=== PATIENT | female | born 1935 | race Caucasian/White ===

== ENCOUNTER 2023-04-18 22:50 | Inpatient (IN) | payer OTHER, SELFPAY ==
[2023-04-18 17:23] VITALS: BP 180/92
[2023-04-18 17:43] LABS: % Basophils 0.3 % (0-2); % Eosinophils 2.8 % (0-6); % Immature Granulocytes 0.8 % (0-0.5); % Lymphocytes 28.5 % (20.5-51.1); % Neutrophils 58.6 % (42.2-75.2); Absolute Eosinophils 0.2 10^3/uL (0-0.7); Absolute Immature Granulocytes 0.1 10^3/uL (0-0.05); Absolute Lymphocytes 1.7 10^3/uL (1.2-3.4); Absolute Monocytes 0.5 10^3/uL (0.1-0.6); Absolute Neutrophils 3.5 10^3/uL (1.4-6.5); Hematocrit 36.9 % (37.0-47.0); Mean Corp Hgb Conc. 35.2 g/dL (33.0-37.0); Mean Corpuscular Hgb 32.8 pg (27.0-31.0); Mean Corpuscular Volume 93.2 fL (81.0-99.0); Mean Platelet Volume 8.3 fL (7.4-10.4); Nucleated Red Blood Cells % 0 %; Platelet Count 173 10^3/uL (130-400); Red Blood Cell Count 3.96 10^6/uL (4.20-5.40); Red Cell Dist. Width 13.6 % (11.5-14.5)
[2023-04-18 17:57] LABS: COVID-19 Antigen Negative (Negative)
[2023-04-18 18:01] LABS: ALT (SGPT) 28 U/L (0-35); AST (SGOT) 28 U/L (14-36); Albumin 4.1 g/dl (3.5-5.0); Alkaline Phosphatase 66 U/L (38-126); Blood Urea Nitrogen 14 mg/dl (7-17); Calcium 9.1 mg/dl (8.4-10.2); Carbon Dioxide 28 mmol/L (22-30); Chloride 99 mmol/L (98-107); Glucose 120 mg/dl (70-99); Potassium 4.1 mmol/L (3.5-5.1); Sodium 136 mmol/L (135-145); Total Bilirubin 0.8 mg/dl (0.2-1.3); Total Protein 6.7 g/dl (6.3-8.2); eGFR > 60.00
[2023-04-18 18:05] LABS: NT-proBNP 176 pg/ml
[2023-04-18 20:16] VITALS: BP 192/82
--- NOTE | 2023-04-18 20:22 | ED.GENMED ---
History of Present Illness
General
Chief Complaint: Breathing Problem
Source: patient and family
Exam Limitations: none
Time Seen by Provider: 04/18/23 20:09
Nursing documentation reviewed up to this point in time: agreed with
Travel History
Have you had any contact with someone who has COVID-19?: No
Do you have any symptoms of coronavirus? Fever > 100 degrees, chills, cough, shortness of breath, sore throat, loss of taste or smell, muscle aches, or headache?: No
History of Present Illness
History of Present Illness:
Patient is 80-year-old female who lives in independent living [place] presents for shortness of breath and wheezing. Patient reports she was admitted 03/18 and feels that symptoms have never truly gone away but have gotten worse since Tuesday. She has
no associated chest pain. She is no cardiac history. She denies any fevers but has had a lot of cough and wheezing. She was seen by her family doctor today and sent to the ER for evaluation admission. She was given a nebulizer treatment while
in the PCP office.
She has chronic lower extremity swelling.
Past History
Past History
ED Past Medical History: Fibromyalgia, HTN, Hypercholesterolemia and Other (chronic back pain and neuropathy)
ED Past Surgical History: Bowel resection and Cholecystectomy
Social History
Tobacco: Non-smoker
Alcohol: Occasional
Drug: None
Personal:
Living: assisted living
Review of Systems
Review of Systems
Allergies reviewed?: Yes
All Other Systems: ROS reviewed and negative except as documented in HPI and ROS
Constitutional: Reports no symptoms; Denies fever, fatigue or chills
Respiratory: Reports cough, trouble breathing and other (+ wheezing )
Cardiac: Reports no symptoms
ABD/GI: Reports no symptoms
: Reports no symptoms
Musculoskeletal: Reports other (chronic swelling b/l l/e )
Skin: Reports no symptoms
Neurological: Reports no symptoms
Psychiatric: Reports no symptoms
Phy Exam
General Physical Exam
General Presentation: no apparent distress
General age: appears stated age
General Skin: warm and dry
General Habitus: normal
General Mental: alert
General Hydration: appears well hydrated
Cardiovascular Exam
Cardiovascular Exam: regular rate/rhythm, no murmur and normal peripheral pulses
Pulmonary Exam
Pulmonary Exam: no respiratory distress and other (exp wheezing b/l )
Neurological Exam
Neurological Exam: alert and oriented x3
Musculoskeletal Exam
Musculoskeletal Exam: full ROM and other (chronic b/l ankle swelling )
Skin Exam
Skin Exam: normal color and warm/dry
Psychiatric Exam
Psychiatric Exam: normal mood/affect
Scores
Heart Failure Risk
Heart Failure Risk Score: Not Applicable
Course
Orders/Labs/Results
Orders:
Orders
04/18/23 17:34
COVID-19 Antigen Urgent
Source: Nasal Swab
Complete Blood Count/With Diff Urgent
Comprehensive Metabolic Panel Urgent
NT-proBNP Urgent
Influenza A+B Rapid Molecular Urgent
LEONA Source: Nasal Swab
Specimen Description:
04/18/23 20:23
Chest [CR Chest - 2 Views ] Urgent
Comment:
Reason For Exam: sob
04/18/23 20:51
Albuterol Sulfate [Ventolin Nebules] 7.5 mg INH R NOW STA
Dexamethasone Sod Phosphate [Decadron] 10 mg IV NOW STA
Ipratropium Nebs [Atrovent Nebules] 1 mg INH R NOW STA
04/18/23 20:56
Electrocardiogram (*1) Stat
Reason for Study: Other
Other Reason for Exam: chest pain
Cardiac Monitoring- Treatment ONCE
EKG- Treatment ONCE
Abnormal Lab Results
04/18/23
17:34
RBC 3.96 L 10^6/uL
(4.20-5.40)
Hct 36.9 L %
(37.0-47.0)
MCH 32.8 H pg
(27.0-31.0)
Abs Immat Gran (auto) 0.1 H 10^3/uL
(0-0.05)
Immature Gran % 0.8 H %
(0-0.5)
Glucose 120 H mg/dl
(70-99)
04/18/23 17:34
04/18/23 17:34
Vital Signs
Initial and Last Documented VS:
Initial Vital Signs
Temp Pulse Resp BP Pulse Ox
99.8 F 77 18 180/92 97
04/18/23 17:23 04/18/23 17:23 04/18/23 17:23 04/18/23 17:23 04/18/23 17:23
Last Documented Vital Signs
Temp Pulse Resp BP Pulse Ox
98.4 F 76 33 178/85 95
04/18/23 20:25 04/18/23 21:00 04/18/23 21:00 04/18/23 21:00 04/18/23 21:00
MDM/Problems Addressed
Differential Diagnosis Includes:
not limited to: bronchitis, pneumonia
MDM/Problems Addressed:
Patient is an 80-year-old female who presents to the ER complaining of cough shortness of breath and wheezing. Patient was seen by her family doctor and sent to the ER for evaluation. She denies any recent fever chills however has had increasing
shortness of breath which is worsened over the past several days. She is obvious wheezing on exam and she is SOB . pt was given 1 hour-long neb and steroids. Chest x-ray ordered however not completed yet as read department is backed up however
despite this patient will need admission. She denies any fevers and is afebrile here with a normal white count. neg covid, neg flu
*Radiology
Radiology exam reviewed: radiology read reviewed
*Pulse Oximetry
Patient hypoxic: no
*EKG
Interpreted by ED Provider?: Yes
Interpretation: normal
Comparison EKG: no changes
Heart Rate: 79
Rate: normal
Rhythm: sinus
Ischemia: non-specific ST changes
*Critical Care Note
Total Time (30-74mins, 75-104mins- exclusive of procedures): Not Applicable
ED Attending Note
-
Portions of this chart may have been created with voice recognition software.� Occasional wrong word or��sound alike� substitutions may have occurred due to the inherent limitations of voice recognition software.
Discharge Plan
Departure
Patient Disposition: Admit
Date of Disposition: 04/18/23
Time of Disposition: 22:04
Admit to: Med/Surg
Admit to doctor: Dani
Presentation/result/management discussed w/ accepting MD/DO: Hospitalist
Patient with high blood pressure during this ER visit?: No
Condition: Fair
Covid-19: Negative COVID-19
Discharge Problem:
Bronchitis, shortness of breath
Prescriptions:
No Action
gabapentin 400 MG capsule
400 mg PO TID
cyanocobalamin (vitamin B-12) 1,000 MCG tablet
1,000 mcg PO DAILY
rosuvastatin 5 MG tablet
5 mg PO QPM
metoprolol tartrate 25 MG tablet
25 mg PO BID
cholecalciferol (vitamin D3) [Vitamin D3] 1,000 UNIT tablet,chewable
1,000 units PO DAILY
fluoxetine 40 mg capsule
40 mg PO DAILY
amitriptyline 25 mg tablet
25 mg PO HS
calcium carbonate 500 mg calcium (1,250 mg) Tablet
500 mg PO DAILY
ascorbic acid (vitamin C) [Vitamin C] 500 mg Tablet
1,000 mg PO DAILY
furosemide 20 mg tablet
20 mg PO DAILY
aripiprazole 2 mg tablet
2 mg PO DAILY
miconazole nitrate [Miconazorb AF] 2 % Powder
1 applic topical BID Qty: 85 0RF
guaifenesin 600 mg Tablet Extended Release 12hr
1,200 mg PO Q12 Qty: 28 0RF
albuterol sulfate 90 mcg/actuation HFA aerosol inhaler
1 puff INHALATION R Q4 PRN (Reason: sob/wheezing) Qty: 8.5 0RF
nifedipine 30 mg Tablet Extended Release
30 mg PO DAILY Qty: 30 0RF
tamsulosin 0.4 mg Capsule
0.4 mg PO DAILY Qty: 30 0RF
prednisone 10 mg Tablet
See Rx Instructions .ROUTE .COMPLEX Qty: 18 0RF
Rx Instructions:
Take By Mouth:
30 mg daily x3 days,
20 mg daily x3 days, 10 mg daily x3 days.
pantoprazole [Protonix] 20 mg Tablet,Delayed Release (Dr/Ec)
20 mg PO DAILY
Referrals:
Samira Patel MD [Family Provider] -
Interventions
Interventions:
*Risk Screen - Suicide Last Done: 04/18/23 17:23
*General Assessment Last Done: 04/18/23 17:23
*Neglect/Abuse Screening Last Done: 04/18/23 17:23
ED- Fall Risk Assessment Last Done: 04/18/23 20:29
*ED COVID-19 Vaccine History Last Done: 04/18/23 17:23
ED- Cardiac Assessment Last Done: 04/18/23 20:29
ED- Pulmonary Assessment Last Done: 04/18/23 20:29
[2023-04-18 20:23] VITALS: BMI 40.4
[2023-04-18 20:25] VITALS: BP 187/78
[2023-04-18 21:00] VITALS: BP 178/85
[2023-04-18] MEDS: DECADRON 10 MG IV (21:07)
[2023-04-18] MEDS: VENTOLIN NEBULES 7.5 MG INH (21:08)
[2023-04-18] MEDS: ATROVENT NEBULES 1 MG INH (21:08)
--- NOTE | 2023-04-18 22:21 | HPS.HSE ---
Family Physician
-
Family Physician: Samira Patel MD
Chief Complaint
-
SoB and wheeze
History of Present Illness
88F from [facility] at HX Fibromyalgia, HTN, Hypercholesterolemia and chronic back pain and neuropathy
pw SoB and wheezing. Similar to last admission. Per patient symptoms have never truly gone away but have gotten worse since Tuesday.
No cardiac history.
Seen by her family doctor today and sent to the ER for evaluation admission.
She was given a nebulizer treatment while in the PCP office.
She has chronic lower extremity swelling.
ROS
denies vomiting, chest pain or pressure, abdominal pain, dyspnea at rest, headache, lightheadedness, urin
Medical History
Past Medical History
Past Medical History: Reports Other
Additional Past Medical History:
Fibromyalgia, HTN, Hypercholesterolemia and Other (chronic back pain and neuropathy))
Past Surgical History: Reports Bowel Resection
Social History
Tobacco: Non-smoker
Alcohol: Occasional
Personal:
Living: With Family
Family History
Family History: Not pertinent
Allergies / Home Medications
Allergies reflects when Allergies were last updated in [facility].
Home Medications with original date entered in [facility]
Allergy/Medication List:
Allergies
Allergy/AdvReac Type Severity Reaction Status Date / Time
Penicillins Allergy Unknown Rash Verified 04/18/23 17:25
Sulfa (Sulfonamide Allergy Unknown Rash Verified 04/18/23 17:25
Antibiotics)
Home Medications
cholecalciferol (vitamin D3) 25 mcg (1,000 unit) chewable tablet (Vitamin D3) 1,000 units PO DAILY 06/25/15
cyanocobalamin (vitamin B-12) 1,000 mcg tablet 1,000 mcg PO DAILY 06/25/15
gabapentin 400 mg capsule 400 mg PO TID 06/25/15
metoprolol tartrate 25 mg tablet 25 mg PO BID 06/25/15
rosuvastatin 5 mg tablet 5 mg PO QPM 06/25/15
amitriptyline 25 mg tablet 25 mg PO HS 03/18/23
aripiprazole 2 mg tablet 2 mg PO DAILY 03/18/23
ascorbic acid (vitamin C) 500 mg tablet (Vitamin C) 1,000 mg PO DAILY 03/18/23
calcium carbonate 500 mg calcium (1,250 mg) tablet 500 mg PO DAILY 03/18/23
fluoxetine 40 mg capsule 40 mg PO DAILY 03/18/23
furosemide 20 mg tablet 20 mg PO DAILY 03/18/23
albuterol sulfate 90 mcg/actuation aerosol inhaler 1 puff inhalation R Q4 PRN sob/wheezing #8.5 grams 03/20/23
guaifenesin 600 mg tablet, extended release 12 hr 1,200 mg PO Q12 #28 tabs 03/20/23
miconazole nitrate 2 % topical powder (Miconazorb AF) 1 applic topical BID #85 grams 03/20/23
nifedipine 30 mg tablet,extended release 30 mg PO DAILY #30 tabs 03/22/23
prednisone 10 mg tablet See Rx Instructions .Route .COMPLEX #18 tabs 03/22/23
tamsulosin 0.4 mg capsule 0.4 mg PO DAILY #30 caps 03/22/23
pantoprazole 20 mg tablet,delayed release (Protonix) 20 mg PO DAILY 04/18/23
Review of Systems
-
Constitutional: Reports No Symptoms
EENT: Reports No Symptoms
Respiratory: Reports See HPI
Cardiac: Reports No Symptoms
Abdomen/GI: Reports No Symptoms
: Reports No Symptoms
Musculoskeletal: Reports No Symptoms
Skin: Reports No Symptoms
Neurological: Reports No Symptoms
Endocrine: Reports No Symptoms
Hematologic/Lymphatic: Reports No Symptoms
Psych: Reports No Symptoms
Physical Exam
Vital Signs
Vital Signs
Temp Pulse Resp BP Pulse Ox
98.4 F 76 33 178/85 95
04/18/23 20:25 02/05/24 21:00 04/18/23 21:00 04/18/23 21:00 04/18/23 21:00
Physical Exam
General: Other (see below )
Laboratory Results
-
04/18/23 17:34
04/18/23 17:34
Laboratory Results
Total Bilirubin 0.8 mg/dl (0.2-1.3) 04/18/23 17:34
AST 28 U/L (14-36) 04/18/23 17:34
ALT 28 U/L (0-35) 04/18/23 17:34
Alkaline Phosphatase 66 U/L (38-126) 04/18/23 17:34
Data Reviewed
-
CT Scan: Report Reviewed by me
Lab Data: Labs Reviewed by me
Old Records: Reviewed
Impression/Plan
-
Reviewed VS: Afebrile tachypnea No ST BP 178/85 POx 95
PE
Gen: looks tired but not toxic
HEENT: anicteric
Neck: supple
Lungs: symmetric AE.b/ exp wheeze with bibasilar rales
Cor: RRR S1 S2
Abdomen: soft NT NG NRT
BI TESTER: AAO3 NFND
MS: 1+ bilateral lower extremity edema
Psych: appropriate interaction.
Data
WCC 6
Hgb 13.3
nl CMP
NEG Covid Ag
NEG Flu A & B
Pending CXR
EKG
NSR. NOS T wave abn. Abnormal ECG
WHEN COMPARED WITH ECG OF 18-MAR-2023 15:43, NO SIGNIFICANT CHANGE WAS FOUND
04/26/19 CT chest : Interstitial changes, improved compared to abdominal CT 2016.
CT chest:
- Minimal linear interstitial airspace disease at the medial basilar portion of the right middle lobe is more likely scarring within minimal pneumonia, however, minimal pneumonia is included in the differential diagnosis.
- There is minimal interstitial scarring in the basilar portion of the lingula.
- There is dependent atelectasis at the posterior lung bases.
08/19/22 ECHO:
Normal left ventricular systolic function.
Left ventricular ejection fraction is 65-70%.
Mild concentric left ventricular hypertrophy.
No significant valvular disease.
Compared to the previous echo10/29/20 there is no significant change.
Last hospitalist admission: 03/18/23 - 03/22/23
Discharge Diagnosis:
1. Suspect acute viral bronchitis
2. Mild liver function test elevation
3. Hyponatremia
4. Hypertensive urgency
ASSESSMENT & PLAN
Recurrent picture of asthmatic bronchitis with bothersome cough and Dyspnic with cough
Chronic SOB - multifactorial origins : obesity , deconditioning, anxiety
Prior HX lung disease including FLORENCIO, obesity
Failed OP Steroids
Prior history of lung disease is noted including FLORENCIO, obesity
Prior PFTs and 6MWT: Normal spirometry, normal walk test, no evidence of hypoxemia
P Pul: Dr Oneill
- IV Decadron 4mg q8h
- DuoNeb QID and PRN
- Mucolytics
- Antitussive PRN
- f/u admission CXR
- Pul consult
FLORENCIO not on CPAP, noncompliant
HTN urgency
Essential HTN
- add IV Hydralazine PRN
- cont Metoprolol
Chr conditions:
Fibromyalgia
Hypercholesterolemia
Chronic back pain
Neuropathy
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
DVT Px: LMWH
Full code
IP MS
[2023-04-18 22:38] VITALS: BP 174/61
[2023-04-18 23:24] VITALS: BMI 39.0
[2023-04-18 23:29] VITALS: BP 186/86
--- NOTE | 2023-04-19 00:15 | PTCARENOTE ---
Receive pt from ER. Pt alert oriented X3, calm and cooperative. Pt assisted X1 to her bed w/RW. Pt has dyspnea on exertion, but denies chest pain, fever or chills. Pt oriented to the room, call mckinnon within reach. BP is high 186/86, HR=85, T=98.1,
SpO2=95% on RA. Pt complains about occasional non productive cough. Will recheck BP and continue to monitor the pt.
[2023-04-19 02:57] VITALS: BMI 38.6
[2023-04-19 03:20] VITALS: BP 154/86
[2023-04-19] MEDS: TYLENOL 650 MG PO ×2 (03:26→21:02)
[2023-04-19] MEDS: DECADRON 4 MG IV ×3 (05:46→21:02)
[2023-04-19 07:35] VITALS: BP 187/111
[2023-04-19 07:45] LABS: Glucose - Point of Care 198 mg/dl (70-99)
[2023-04-19 08:11] VITALS: BP 164/90
[2023-04-19] MEDS: LOPRESSOR 25 MG PO ×2 (08:13→21:01)
[2023-04-19] MEDS: PROTONIX 40 MG PO (08:13)
[2023-04-19] MEDS: LASIX 20 MG PO (08:13)
[2023-04-19] MEDS: NEURONTIN 400 MG PO ×3 (08:13→21:02)
[2023-04-19] MEDS: ABILIFY 2 MG PO (08:13)
[2023-04-19] MEDS: PROCARDIA XL (EXTENDED RELEASE) 30 MG PO (08:13)
[2023-04-19] MEDS: MUCINEX 1200 MG PO ×2 (08:13→21:02)
[2023-04-19] MEDS: PROZAC 40 MG PO (08:13)
[2023-04-19] MEDS: FLOMAX 0.400000000000000022 MG PO (08:13)
[2023-04-19] MEDS: DUONEB 3 ML INH ×3 (08:21→19:46)
[2023-04-19 09:25] LABS: % Basophils 0.2 % (0-2); % Immature Granulocytes 1.2 % (0-0.5); % Lymphocytes 16.4 % (20.5-51.1); % Monocytes 0.5 % (1.7-9.3); % Neutrophils 81.7 % (42.2-75.2); Absolute Immature Granulocytes 0.1 10^3/uL (0-0.05); Absolute Lymphocytes 1.1 10^3/uL (1.2-3.4); Absolute Neutrophils 5.3 10^3/uL (1.4-6.5); Hematocrit 37.1 % (37.0-47.0); Hemoglobin 12.8 g/dL (12.0-16.0); Mean Corp Hgb Conc. 34.5 g/dL (33.0-37.0); Mean Corpuscular Hgb 31.8 pg (27.0-31.0); Mean Corpuscular Volume 92.3 fL (81.0-99.0); Mean Platelet Volume 8.5 fL (7.4-10.4); Nucleated Red Blood Cells % 0 %; Platelet Count 213 10^3/uL (130-400); Red Blood Cell Count 4.02 10^6/uL (4.20-5.40); Red Cell Dist. Width 13.6 % (11.5-14.5); White Blood Cell Count 6.5 10^3/uL (4.8-10.8)
[2023-04-19 09:33] LABS: Blood Urea Nitrogen 11 mg/dl (7-17); Carbon Dioxide 19 mmol/L (22-30); Chloride 100 mmol/L (98-107); Estimated Creatinine Clearance 58 ml/min; Glucose 240 mg/dl (70-99); Potassium 4.2 mmol/L (3.5-5.1); Sodium 133 mmol/L (135-145); eGFR > 60.00
[2023-04-19 11:35] VITALS: BP 136/68
[2023-04-19 11:53] LABS: D-Dimer 0.61 ug/mlFEU (0.00-0.50)
[2023-04-19] MEDS: LASIX 20 MG IV (13:00)
[2023-04-19] MEDS: FLUSH (NSS) 2 FLUSH IV (13:02)
--- NOTE | 2023-04-19 14:32 | W.PN.HOSP.TC ---
Today's Communication/Plan
-
check echo
pulmo evaluation
Assessment / Plan
Assessment / Plan
1. Exertional dyspnea
Recent viral bronchitis
-Patient continues to complain exertional dyspnea and some dry cough, just discharged from hospital last month after treatment of viral bronchitis
-Chest x-ray in ER did not show any acute abnormalities
-Patient had CT chest 2 months back and have not shown any significant parenchymal problems
-D-dimer checked not significantly elevated to suggest VTE
-Echocardiogram in August showing preserved EF and no major valvulopathy, repeat echocardiogram ordered
-Patient being maintained on empirically steroids and nebulizer therapy, pulmonology has been asked to evaluate as well
-Possible deconditioning playing a role and patient may require rehab if qualifies
2. FLORENCIO
-not on CPAP therapy. continue monitoring
Morbid obesity
Fibromyalgia
History of benign breast tumor status post excision
History of diverticulosis s/p hemicolectomy
History of hysterectomy with BSO
History of right shoulder repair
DVT PPX - lovenox
Full code
Anticipated Discharge: Within 24 hours
Subjective/Interval History
-
Date of Service: April 19, 2023
Continue to complain shortness of breath on exertion, not hypoxic
Denies chest pain/palpitation
Objective Data
-
Labs:
Laboratory Results
04/19/23
09:04
WBC 6.5
Hgb 12.8
Hct 37.1
Plt Count 213 D
Sodium 133 L
Potassium 4.2
Chloride 100
Carbon Dioxide 19 L
BUN 11
Creatinine 0.7
Glucose 240 H
Calcium 9.0
Vital Signs:
Vital Signs
Temp Pulse Resp BP Pulse Ox
98.3 F 80 20 136/68 95
02/06/24 07:35 04/19/23 11:37 04/19/23 11:37 04/19/23 11:35 04/19/23 11:37
Review of Systems
-
Respiratory: Reports Trouble Breathing; Denies Wheezing
Cardiac: Reports No Symptoms
Abdomen/GI: Reports No Symptoms
Physical Exam
-
HEENT: Negative Oxygen
Respiratory: Clear to Auscultation
Cardiac: Regular Rhythm and S1/S2; Negative Murmur or Rub
GI: Soft, Nontender and Nondistended
Musculoskeletal: No Edema
Neuro: Awake, Alert, Oriented, No Motor Deficits and Nonfocal/Grossly Intact
Psych: Calm
--- NOTE | 2023-04-19 15:13 | CON.PUL ---
Consultation
Consultation Request
Date/Time Consultation Requested: 04-19-23
Date/Time Consultation Performed: 04-19-23
Requesting Provider: Hospitalist
Performing Provider: Dr Robbins
Reason for Consultation: cough
Medical History
-
Chief Complaint: cough
History of Present Illness:
Mrs Susannah Fierro is an 88/W adm 04-18 with intermittent dry cough associated with physical activity, sometimes BRIAN alone.
Recently adm in early Mar 2022 for refractory dyspnea and bronchitis, treated with prednisone taper and prn BDs, no atbs given.
Now reports that cough occurs on exertion and can be severe not allowing her to do ADL. LLNS.
This adm has remained resp and hemodyn stable, afebrile. At time of visit, patient sitting in chair, speaking in full sentences, during time of interview no dyspnea, no cough.
Past Medical History
Past Medical History: Other (see A&P for PMH/PSH)
Social History
Tobacco: Non-smoker
Alcohol: None
Drug: None
Employment: Not Employed
Family History
Family History: Reviewed & Not Pertinent
Allergies / Home Medications
Allergies
Allergy/AdvReac Type Severity Reaction Status Date / Time
Penicillins Allergy Rash Verified 04/18/23 23:26
Sulfa (Sulfonamide Allergy Rash Verified 04/18/23 23:26
Antibiotics)
Home Medications
Medication Instructions Recorded Confirmed Last Taken Type
cholecalciferol (vitamin D3) 25 1,000 units PO DAILY Supplement 06/25/15 04/18/23 03/18/23 History
mcg (1,000 unit) chewable tablet
(Vitamin D3)
cyanocobalamin (vitamin B-12) 1,000 mcg PO DAILY Supplement 06/25/15 04/18/23 03/18/23 History
1,000 mcg tablet
gabapentin 400 mg capsule 400 mg PO TID Neurological 06/25/15 04/18/23 03/18/23 History
Condition
metoprolol tartrate 25 mg tablet 25 mg PO BID Heart 06/25/15 04/18/23 03/18/23 History
Disease/Condition
rosuvastatin 5 mg tablet 5 mg PO QPM High Cholesterol 06/25/15 04/18/23 03/17/23 History
amitriptyline 25 mg tablet 25 mg PO HS Neurological Condition 03/18/23 04/18/23 03/17/23 History
aripiprazole 2 mg tablet 2 mg PO DAILY Neurological 03/18/23 04/18/23 03/18/23 History
Condition
ascorbic acid (vitamin C) 500 mg 1,000 mg PO DAILY Supplement 03/18/23 04/18/23 03/18/23 History
tablet (Vitamin C)
calcium carbonate 500 mg calcium 500 mg PO DAILY Supplement 03/18/23 04/18/23 03/18/23 History
(1,250 mg) tablet
fluoxetine 40 mg capsule 40 mg PO DAILY Neurological 03/18/23 04/18/23 03/18/23 History
Condition
furosemide 20 mg tablet 20 mg PO DAILY Fluid 03/18/23 04/18/23 03/18/23 History
Retention/Swelling
albuterol sulfate 90 mcg/actuation 1 puff inhalation R Q4 PRN 03/20/23 04/18/23 Unknown Rx
aerosol inhaler sob/wheezing #8.5 grams
guaifenesin 600 mg tablet, 1,200 mg PO Q12 #28 tabs 03/20/23 04/18/23 Unknown Rx
extended release 12 hr
miconazole nitrate 2 % topical 1 applic topical BID #85 grams 03/20/23 04/18/23 Unknown Rx
powder (Miconazorb AF)
nifedipine 30 mg tablet,extended 30 mg PO DAILY #30 tabs 03/22/23 04/18/23 Unknown Rx
release
prednisone 10 mg tablet See Rx Instructions .Route 03/22/23 04/18/23 Unknown Rx
.COMPLEX #18 tabs
tamsulosin 0.4 mg capsule 0.4 mg PO DAILY #30 caps 03/22/23 04/18/23 Unknown Rx
pantoprazole 20 mg tablet,delayed 20 mg PO DAILY Gastrointestinal 04/18/23 04/18/23 Unknown History
release (Protonix) Issue
Review of Systems
-
History Source: Patient
All other systems: Negative unless noted
Respiratory: Cough and Trouble Breathing (BRIAN)
Musculoskeletal: Edema (MARCOS)
Vitals / Labs / Diagnostic Testing
Vital Signs
Temp Pulse Resp BP Pulse Ox
98.3 F 80 20 136/68 95
04/19/23 07:35 04/19/23 11:37 04/19/23 11:37 04/19/23 11:35 04/19/23 11:37
Lab Data
04/19/23 09:04
04/19/23 09:04
Microbiology
04/18/23 17:34 Nasal Swab Influenza Types A & B (FELA) - Final
Negative for Influenza A & B, NAAT
Negative results must be combined with clinical observations
and patient history.
Nucleic Acid Amplification test (NAAT)performed on the
[employer] platform.
Diagnostic Testing:
Physical Exam
-
HEENT: Normocephalic and Moist Mucous Membranes
Cardiovascular: Murmur (n), Peripheral Edema (MARCOS) and Calf Tenderness (n)
Respiratory: Clear and Non-Labored Respirations
GI: Soft, Non Distended and Non Tender
Neurology: Awake, AO x 3 and No Motor Deficits
Skin: Dry
General: Respiratory Distress (n)
Assessment
-
Assess
Mrs Susannah Fierro is an 88/W adm 04-18 with intermittent dry cough associated with physical activity, sometimes BRIAN alone. Recently adm in early Mar 2022 for refractory dyspnea and bronchitis, treated with prednisone taper and prn BDs, no atbs
given. Now reports that cough occurs on exdertion and can be severe not allowing her to do ADL. LLNS. This adm has remained resp and hemodyn stable, afebrile. At time of visit, patient sitting in chair, speaking in full sentences, during time of
interview no dyspnea, no cough.
Impression:
Intermittent dry cough, reportedly associated with exertion
Intermittent BRIAN
Recent acute bronchitis, deemed viral cause
Conditions [employer]:
Fibromyalgia
Essential hypertension
Morbid obesity due to excess calories
Dyslipidemia
Exertional dyspnea associated with irregular heartbeat, pvc's, pac's
Benign left breast tumor s/p excision
hx BCC
Diverticulosis s/p hemicolectomy
Chronic venous insufficiency
Seasonal allergies
FLORENCIO not compliant to CPAP
Hysterectomy with BSO in her 40's 2/2 uterine fibroid, menorrhagia
Hemicolectomy for diverticular disease
Cholecystectomy
Rt shoulder repair, arthroscopic, rotator cuff
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
Droopy eyelid surgery 11/2018
[facility] ER fall (rib contusion, LUE, neck) 05/2022
Lifelong nonsmoker
Plan:
Resp nunez stable since adm
Remains on RA
Speaking in full sentences, no cough during time of interview and physical examination
Follows with [facility], also seen after recent admission on 04-11, reported increased reflux since after she discontinued protonix, advised to resume and increase dose from 20 to 40 mg qd, speech evaluation was recommended and is pending as outpatient
If reflux is a significant contributor or cause of her intermittent cough it may weeks to be improved with a-reflux mgmt
Speech evaluation requested here
Has mild interstitial changes at bases on chest CT Dec [address] Apr 2019 but no significant abnormalities on PFTs at [facility]
Agree with observation off atbs
At this juncture appears in no resp distress
IV CS started on adm can be decreased to prednisone tomorrow if ramains stable, and slow taper at 40 mg qd in am, then continue tapering by 10 mg q3d to off
Continue DNs qid and prn for now
Continue mucolytic, IS
D/w Vadim
Follow with [facility] as scheduled iwth TERRY Andrews and staff physician
Disposition efforts
[2023-04-19 15:20] VITALS: BP 146/65
[2023-04-19] MEDS: DUONEB INH (16:23)
--- NOTE | 2023-04-19 17:06 | CM ---
CM following re: d/c planning
Chart reviewed
CM met with the patient at bedside; IA completed
Pt states she resides alone in an [place] apartment at [facility] on the 8th floor and her spouse resides in the SNF within the dementia wing
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
Pt states she is current with [facility] for SN/PT, has a transport w/c for use if needed, r/w, & bars in the bathroom for safety
Pt also mentioned her daughter helps with food shopping
Pt has been in [facility] 1 month ago secondary to a fall and states she has a fall hx
Pt confirms prescription coverage and rx's are filled at [facility] [address] [facility] & uses express scripts for maintenance medications
Pt PCP-Samira Patel
CM awaiting PT eval. for recommendation r/t to discharge planning
PLAN; CM following for needs
[2023-04-19] MEDS: CRESTOR 5 MG PO (17:52)
[2023-04-19] MEDS: LOVENOX 40 MG SC (17:52)
[2023-04-19] MEDS: ELAVIL 25 MG PO (21:02)
[2023-04-19] MEDS: MELATONIN 5 MG PO (22:03)
[2023-04-19 23:33] VITALS: BP 127/59
[2023-04-20] MEDS: DECADRON 4 MG IV ×2 (05:53→14:03)
[2023-04-20 05:57] VITALS: BMI 38.2
[2023-04-20 07:45] VITALS: BP 162/76
[2023-04-20] MEDS: DUONEB 3 ML INH ×3 (07:49→15:55)
[2023-04-20] MEDS: MUCINEX 1200 MG PO (07:59)
[2023-04-20] MEDS: FLOMAX 0.400000000000000022 MG PO (07:59)
[2023-04-20] MEDS: PROTONIX 40 MG PO (07:59)
[2023-04-20] MEDS: PROZAC 40 MG PO (07:59)
[2023-04-20] MEDS: PROCARDIA XL (EXTENDED RELEASE) 30 MG PO (07:59)
[2023-04-20] MEDS: LASIX 40 MG IV (08:00)
[2023-04-20] MEDS: NEURONTIN 400 MG PO ×2 (08:00→15:53)
[2023-04-20] MEDS: ABILIFY 2 MG PO (08:00)
[2023-04-20] MEDS: LOPRESSOR 25 MG PO (08:00)
[2023-04-20] MEDS: FLUSH (NSS) 1 FLUSH IV ×3 (08:01→14:03)
[2023-04-20 08:19] LABS: Mean Corp Hgb Conc. 35.3 g/dL (33.0-37.0); Mean Corpuscular Hgb 32.7 pg (27.0-31.0); Mean Corpuscular Volume 92.6 fL (81.0-99.0); Red Blood Cell Count 3.67 10^6/uL (4.20-5.40); Red Cell Dist. Width 13.6 % (11.5-14.5); White Blood Cell Count 12.6 10^3/uL (4.8-10.8)
[2023-04-20 09:02] LABS: Platelet Count 137 10^3/uL (130-400)
[2023-04-20 09:03] LABS: Mean Platelet Volume 10.8 fL (7.4-10.4)
[2023-04-20 09:30] LABS: Blood Urea Nitrogen 23 mg/dl (7-17); Calcium 9.3 mg/dl (8.4-10.2); Carbon Dioxide 30 mmol/L (22-30); Chloride 99 mmol/L (98-107); Estimated Creatinine Clearance 50 ml/min; Glucose 171 mg/dl (70-99); Potassium 4.4 mmol/L (3.5-5.1); Sodium 134 mmol/L (135-145); eGFR > 60.00
[2023-04-20 11:19] VITALS: BP 111/57; PULSE 64; PULSE 65; O2SAT 97
[2023-04-20 12:00] VITALS: BP 111/47
--- NOTE | 2023-04-20 12:30 | W.PN.HOSP.TC ---
Addendum entered and electronically signed by Jeremy Orellana MD 04/21/23 07:34:
Documentation addendum in response to CDI query:
Hyponatremia - mild in nature
HTN urgency - at admission, improved at this point
Original Note:
Today's Communication/Plan
-
d/c home with HH
Assessment / Plan
Assessment / Plan
1. Exertional dyspnea
Recent viral bronchitis
-Patient continues to complain exertional dyspnea and some dry cough, just discharged from hospital last month after treatment of viral bronchitis
-Chest x-ray in ER did not show any acute abnormalities
-Patient had CT chest 2 months back and have not shown any significant parenchymal problems
-D-dimer checked, not significantly elevated to suggest VTE
-Echocardiogram in August showing preserved EF and no major valvulopathy, repeat echocardiogram showed similar finding of stable EF with no valvulopathy
-Patient being maintained on empirically steroids and nebulizer therapy, pulmonology recommended to finish short course of steroids.
-Physical therapy evaluated and patient appropriate for home health physical therapy. Encourage patient to do activity and exercise.
2. FLORENCIO
-not on CPAP therapy. continue monitoring
3. Chronic cough
-Suspected to reflux related. Patient was to be started back on Protonix
-Patient to follow-up with pulmonology in office.
Morbid obesity
Fibromyalgia
History of benign breast tumor status post excision
History of diverticulosis s/p hemicolectomy
History of hysterectomy with BSO
History of right shoulder repair
DVT PPX - lovenox
Full code
More than 30 minutes spent in discharge including
Final examination of the patient
Summarizing hospital stay
Instructions for continuing care to all relevant caregivers
Preparation of discharge records, prescriptions, and referral forms
Total time spent (in minutes): 37 mins
Anticipated Discharge: Today
Subjective/Interval History
-
Date of Service: April 20, 2023
Resting comfortably in chair
No hypoxia reported overnight
Able to participate with physical therapy without significant dyspnea
Objective Data
-
Labs:
Laboratory Results
04/20/23 04/20/23
07:06 09:00
WBC 12.6 H
Hgb 12.0
Hct 34.0 L
Plt Count 137 D
Sodium Cancelled 134 L
Potassium Cancelled 4.4
Chloride Cancelled 99
Carbon Dioxide Cancelled 30
BUN Cancelled 23 H
Creatinine Cancelled 0.8
Glucose Cancelled 171 H
Calcium Cancelled 9.3
Vital Signs:
Vital Signs
Temp Pulse Resp BP Pulse Ox
97.4 F 64 24 111/47 96
04/20/23 07:45 04/20/23 12:00 04/20/23 12:00 04/20/23 12:00 04/20/23 12:00
I&O
04/19/23 04/20/23 04/21/23
06:59 06:59 06:59
Intake Total 840 / 840 120 / 120
Balance 840 / 840 120 / 120
Review of Systems
-
Respiratory: Reports Cough; Denies Hemoptysis or Trouble Breathing
Cardiac: Reports No Symptoms
Abdomen/GI: Reports No Symptoms
Physical Exam
-
General: Negative Respiratory Distress
HEENT: Negative Oxygen
Respiratory: Clear to Auscultation
Cardiac: Regular Rhythm and S1/S2; Negative Murmur or Rub
GI: Soft, Nontender and Nondistended
Musculoskeletal: No Edema
Neuro: Awake, Alert, Oriented, No Motor Deficits and Nonfocal/Grossly Intact
Psych: Calm
--- NOTE | 2023-04-20 14:35 | W.PN.PUL3 ---
Today's Communication / Plan
-
Dispo
Assessment
-
Assess
Mrs Susannah Fierro is an 88/W adm 04-18 with intermittent dry cough associated with physical activity, sometimes BRIAN alone. Recently adm in early Mar 2022 for refractory dyspnea and bronchitis, treated with prednisone taper and prn BDs, no atbs
given. Now reports that cough occurs on exdertion and can be severe not allowing her to do ADL. LLNS. This adm has remained resp and hemodyn stable, afebrile. At time of visit, patient sitting in chair, speaking in full sentences, during time of
interview no dyspnea, no cough.
Impression:
Intermittent dry cough, reportedly associated with exertion
Intermittent BRIAN
Recent acute bronchitis, deemed viral cause
Conditions HEAD OF DIGITAL:
Fibromyalgia
Essential hypertension
Morbid obesity due to excess calories
Dyslipidemia
Exertional dyspnea associated with irregular heartbeat, pvc's, pac's
Benign left breast tumor s/p excision
hx BCC
Diverticulosis s/p hemicolectomy
Chronic venous insufficiency
Seasonal allergies
FLORENCIO not compliant to CPAP
Hysterectomy with BSO in her 40's 2/2 uterine fibroid, menorrhagia
Hemicolectomy for diverticular disease
Cholecystectomy
Rt shoulder repair, arthroscopic, rotator cuff
Mohs for basal cell ca of forehead, in [place]
Droopy eyelid surgery 11/2018
[facility] ER fall (rib contusion, LUE, neck) 05/2022
Lifelong nonsmoker
Plan:
Resp nunez stable since adm
Remains on RA
Speaking in full sentences, no cough during time of interview and physical examination on day of consult or today
Follows with [facility], also seen after recent admission on 04-11, reported increased reflux since after she discontinued protonix, advised to resume and increase dose from 20 to 40 mg qd, speech evaluation was recommended and is pending as outpatient
If reflux is a significant contributor or cause of her intermittent cough it may weeks to be improved with a-reflux mgmt
Has mild interstitial changes at bases on chest CT Dec [address] Apr 2019 but no significant abnormalities on PFTs at [facility]
Agree with observation off atbs
At this juncture appears in no resp distress
IV CS transition to prednisone, and slow taper at 40 mg qd in am, then continue tapering by 10 mg q3d to off
Continue DNs prn, return to albuterol HFA prn
Continue mucolytic, IS
D/w Mrs Fierro
Follow with [facility] as scheduled with TERRY Andrews and staff physician
Disposition efforts
No objection to d/c
Subjective Data
-
Date of Service:
Date of Service: April 20, 2023
Chief Complaint: Pulmonary Follow Up
Subjective:
No major events reported
Doing well on RA
Denies major complaints
Review of Systems
General: Fever (n), Sweats (n), Chills and Satisfactory Appetite
HEENT: Epistaxis and Dysphagia
Cardiopulmonary: Dyspnea on Exertion, Cough and Wheezing
GI: Abdominal Pain, Nausea (n) and Vomiting (n)
Objective Data
Data Reviewed
Vital Signs / I&O / Oxygen:
Vital Signs
Temp Pulse Resp BP Pulse Ox
97.4 F 64 24 111/47 96
04/20/23 07:45 04/20/23 12:00 04/20/23 12:00 04/20/23 12:00 04/20/23 12:00
Intake and Output
04/19/23 04/20/23 04/21/23
06:59 06:59 06:59
Intake Total 840 / 840 120 / 120
Balance 840 / 840 120 / 120
SaO2 96
Physical Exam
General: Comfortable
HEENT: Normocephalic and Moist Mucous Membranes
Cardiovascular: Regular Rhythm, Murmur (n) and Peripheral Edema (n)
Respiratory: Rhonchi (subtle), Non-Labored Respirations and Stridor (n)
GI: Soft, Non Distended and Non Tender
Neurology: Awake, AO x 3 and No Motor Deficits
Skin: Dry
Labs/Micro/Reports
Lab Data
04/20/23 07:06
04/20/23 09:00
Microbiology
04/19/23 00:22 Nose MRSA Screen - Final
No Methicillin Resistant Staphylococcus aureus isolated.
04/18/23 17:34 Nasal Swab Influenza Types A & B (FELA) - Final
Negative for Influenza A & B, NAAT
Negative results must be combined with clinical observations
and patient history.
Nucleic Acid Amplification test (NAAT)performed on the
[employer] platform.
--- NOTE | 2023-04-20 15:31 | PN.CDI ---
CDI
- -
CDI:
Physician Documentation Request
Admit Date: 04/18/23 22:50
Dear Doctor Esteban,
Clinical Indicators:
Patient admitted with exertional dyspnea.
2/6 Lasix 20 mg IV given x 1.
Sodium levels:
04/19/23 04/20/23
09:04 09:00
Sodium 133 L 134 L
Based on the above, could you clarify in the progress notes, the appropriate diagnosis, if significant, that supports the above abnormalities and additional evaluation, monitoring and/or treatment rendered:
Hyponatremia
Abnormal lab value, clinically insignificant
Other
Use of terms such as suspected, likely, concern for, or probable (associated with a specific diagnosis that is being evaluated, monitored, or treated as if it exists) are acceptable and can be coded in the inpatient setting, when documented at the
time of discharge.
Thank you,
RICKY Meier RN
CDI Specialist
available via tiger text
Please use your independent medical judgment in providing your response.
--- NOTE | 2023-04-20 15:37 | PN.CDI ---
CDI
- -
CDI:
Physician Documentation Request
Admit Date: 04/18/23 22:50
Dear Doctor Esteban,
Clinical Indicators:
Patient admitted with exertional dyspnea.
2/5 H & P, 'HTN urgency Essential HTN - add IV Hydralazine PRN'
BP trend on admission:
04/18/23
17:23 04/18/23
20:16 04/18/23
20:25
Blood pressure 180/92 192/82 187/78
04/18/23
23:29 04/19/23
07:35
Blood pressure 186/86 187/111
Due to conflicting documentation, please clarify which is a more accurate diagnosis of the documented hypertension:
Essential primary hypertension, POA
Hypertensive Urgency, POA - B/P is severely elevated (systolic > or = to 180 or diastolic > or = to 110) but there is no associated organ damage. Symptoms may include: headache, shortness of breath, nosebleeds, severe anxiety. Treatment usually
consists of addition to or adjusting of oral medications and does not generally necessitate hospitalization. .
Other (please specify)
Use of terms such as suspected, likely, concern for, or probable (associated with a specific diagnosis that is being evaluated, monitored, or treated as if it exists) are acceptable and can be coded in the inpatient setting, when documented at the
time of discharge.
Thank you,
RICKY Meier RN
CDI Specialist
available via tiger text
Please use your independent medical judgment in providing your response.
--- NOTE | 2023-04-20 15:39 | CM ---
CM following re: d/c planning
Chart reviewed
Pt is medically stable for d/c
Pt is set up with [facility] provided by [facility]
IMM reviewed with patient and copy provided
Pt states her daughter is scheduled to pick her up around 4pm
No additional d/c needs are noted
PLAN; d/c home with [facility] READ
--- NOTE | 2023-04-22 07:26 | W.DCSUMMARY ---
Discharge Summary
Discharge Data
Date of Admission: 04/18/23
Date of Discharge: 04/20/23
-
Pending Results: No
Hospital Course
Discharging Physician : Dr Jeremy Orellana
Disposition : Home
Primary care physician : Dr Samira Patel
Principal Discharge diagnosis :
Exertional dyspnea
Episodic/chronic cough
Chronic Discharge diagnosis :
Recent viral bronchitis
Obstructive sleep apnea not on positive pressure therapy
Morbid obesity
Fibromyalgia
History of benign breast tumor s/p excision
History of diverticulosis s/p hemicolectomy
History of hysterectomy with bilateral salpingo-oophorectomy
History of right shoulder repair
Hospital Course :
Patient is 88-year-old female with mentioned past medical history here for having persistent exertional dyspnea. Patient has been recently treated for viral bronchitis and had a CT chest showing questionable parenchymal abnormality. In ER exam
patient did not have significant pulmonary problems. Patient had a chest x-ray which did not show any new issues. D-dimer check was negative. Pulmonology was involved in care who recommended short course of steroid and nebulizer therapy.
Echocardiogram was repeated which ruled out any heart failure/valvulopathy/pulmonary hypertension. Patient exertional dyspnea likely related to debility and decompensation. Patient would benefit with pulmonary rehab although may not have
qualifying criteria. A home-based physical therapy was arranged.
Patient also history of sleep apnea but not using CPAP, patient planning to follow-up with pulmonology in office and attempting to be resumed back on CPAP therapy.
Patient periodic persistent cough can possibly related to reflux. Patient already on Protonix therapy, dose of which can be potentially increased if no improvement in symptoms. CT chest to rule out any chronic bronchiectasis. Patient to follow-up
with pulmonology in office and may benefit with PFT.
Important imaging findings :
None
Procedure findings :
None
Discharge Plan
-
Patient Disposition: Home with Home Care
Discharge Diagnosis/Procedures: Exertional dyspnea, Chronic cough
Condition: Fair
Diet: Regular
Activity: As tolerated
Driving Restrictions: No driving
Bathing Restrictions: OK to Shower
Other Services: VN
Referrals:
Samira Patel MD [Family Provider] - in one week
Prescriptions:
New
prednisone 10 mg Tablet
See Rx Instructions .ROUTE .COMPLEX Qty: 20 0RF
Rx Instructions:
Take By Mouth:
40 mg daily x2 days, 30 mg daily x2 days,
20 mg daily x2 days, 10 mg daily x2 days.
dextromethorphan-guaifenesin 5-100 mg/5 mL liquid
10 ml PO Q8H PRN (Reason: Cough) Qty: 500 0RF
Continued
gabapentin 400 MG capsule
400 mg PO TID
cyanocobalamin (vitamin B-12) 1,000 MCG tablet
1,000 mcg PO DAILY
rosuvastatin 5 MG tablet
5 mg PO QPM
metoprolol tartrate 25 MG tablet
25 mg PO BID
cholecalciferol (vitamin D3) [Vitamin D3] 1,000 UNIT tablet,chewable
1,000 units PO DAILY
fluoxetine 40 mg capsule
40 mg PO DAILY
amitriptyline 25 mg tablet
25 mg PO HS
calcium carbonate 500 mg calcium (1,250 mg) Tablet
500 mg PO DAILY
ascorbic acid (vitamin C) [Vitamin C] 500 mg Tablet
1,000 mg PO DAILY
furosemide 20 mg tablet
20 mg PO DAILY
aripiprazole 2 mg tablet
2 mg PO DAILY
miconazole nitrate [Miconazorb AF] 2 % Powder
1 applic topical BID Qty: 85 0RF
guaifenesin 600 mg Tablet Extended Release 12hr
1,200 mg PO Q12 Qty: 28 0RF
albuterol sulfate 90 mcg/actuation HFA aerosol inhaler
1 puff INHALATION R Q4 PRN (Reason: sob/wheezing) Qty: 8.5 0RF
nifedipine 30 mg Tablet Extended Release
30 mg PO DAILY Qty: 30 0RF
tamsulosin 0.4 mg Capsule
0.4 mg PO DAILY Qty: 30 0RF
pantoprazole [Protonix] 20 mg Tablet,Delayed Release (Dr/Ec)
20 mg PO DAILY
Discontinued
prednisone 10 mg Tablet
See Rx Instructions .ROUTE .COMPLEX Qty: 18 0RF
Rx Instructions:
Take By Mouth:
30 mg daily x3 days,
20 mg daily x3 days, 10 mg daily x3 days.
Discharge Orders:
Discharge Patient (As Directed); Ordered 04/20/23
Ordered By: Jeremy Orellana
Discharge Date and Time
Discharge Date/Time: 04/20/23 16:39
== END 2023-04-20 16:39 | disposition home health service (06) | DRG 204 ==
LOC: 4 EAST ACU 22:50
PROVIDERS: Emergency Medicine; ADMITTING PHYSICIAN Internal Medicine; ATTENDING PHYSICIAN Hospitalist; EMERGENCY PHYSICIAN Emergency Medicine; FAMILY PHYSICIAN Emergency Medicine; OTHER PHYSICIAN Internal Medicine Pulmonary Disease
DX: R06.09 Other forms of dyspnea (principal); E87.1 Hypo-osmolality and hyponatremia; J20.9 Acute bronchitis, unspecified; Z11.52 Encounter for screening for COVID-19; I16.0 Hypertensive urgency; G47.33 Obstructive sleep apnea (adult) (pediatric); J45.909 Unspecified asthma, uncomplicated; I10 Essential (primary) hypertension; M79.7 Fibromyalgia; E78.00 Pure hypercholesterolemia, unspecified; G89.29 Other chronic pain; G62.9 Polyneuropathy, unspecified; M54.9 Dorsalgia, unspecified; E66.01 Morbid (severe) obesity due to excess calories; Z68.38 Body mass index [BMI] 38.0-38.9, adult; K57.90 Diverticulosis of intestine, part unspecified, without perforation or abscess without bleeding
CPT/HCPCS: 71046; 80048; 80053; 82962; 83880; 85025; 85027; 85379; 87070; 87502; 87811; 93005; 93306; 94640; 96374; 97162; 97166; 97530; 99285; Q9957

== ENCOUNTER 2023-04-29 08:04 | Emergency (ER) | payer OTHER, SELFPAY ==
[2023-04-29 08:06] VITALS: BP 128/69
--- NOTE | 2023-04-29 08:27 | ED.GENMED ---
History of Present Illness
General
Chief Complaint: Breathing Problem
Source: patient
Time Seen by Provider: 04/29/23 08:11
Travel History
Have you had any contact with someone who has COVID-19?: No
Do you have any symptoms of coronavirus? Fever > 100 degrees, chills, cough, shortness of breath, sore throat, loss of taste or smell, muscle aches, or headache?: No
History of Present Illness
History of Present Illness:
80-year-old female presents to the emergency room complaining of shortness of breath with exertion. The visiting nurse was with the patient this morning and observed her pulse oximetry did drop to the low 80s during walking. Patient's daughter
contacted her primary care provider as well as the diet supervisor office who both recommended patient come to the emergency room. At rest patient is relatively asymptomatic. She does endorse increasing peripheral edema. She denies any known
history of heart failure. She does take furosemide 20 mg and has been compliant. Patient informs me she has been admitted twice for 'bronchitis' and has been placed on a long steroid taper.
Past History
Past History
ED Past Medical History: Fibromyalgia, HTN, Hypercholesterolemia and Other (chronic back pain and neuropathy)
ED Past Surgical History: Bowel resection and Cholecystectomy
Social History
Tobacco: Non-smoker
Alcohol: Occasional
Drug: None
Personal:
Living: assisted living
Phy Exam
Physical Exam
Physical Exam:
General: Awake, Alert, Oriented X3. No acute distress.
Vitals: unremarkable
Head: Atraumatic
Eyes: Pupils equal, EOMI
Throat: Airway intact, no exudates
Neck: Trachea midline
Lungs: Crackles lower half of lung cerda bilaterally
Heart: Regular rate, no murmurs
Abd: Soft, Nontender, No pulsatile mass
Neuro: Nonfocal
Skin: Warm, dry, no rash
Extremities: pulses equal b/l, 2+ edema
Scores
Heart Failure Risk
Heart Failure Risk Score: Not Applicable
Course
Orders/Labs/Results
Orders:
Orders
04/29/23 08:24
Electrocardiogram (*1) Stat
Reason for Study: Other
Other Reason for Exam: chest pain
Cardiac Monitoring- Treatment ONCE
EKG- Treatment ONCE
CR Chest - 2 Views Urgent
Comment:
Reason For Exam: dyspnea on exertion, edema
04/29/23 08:37
Basic Metabolic Panel Urgent
Complete Blood Count/With Diff Urgent
Magnesium Urgent
NT-proBNP Urgent
04/29/23 09:16
CT Chest Pe Study Urgent
Comment:
Reason For Exam: dyspnea on exertion
04/29/23 11:11
Assess for Home O2 [Pulse Ox/Assess for Home O2] [RESP] Routine
Oxygen to keep O2 Saturation at least ___ %: 91
04/29/23 11:13
Case Management Consult ONCE
Case Management Consult: Durable Medical Equip
Abnormal Lab Results
04/29/23
08:37
WBC 11.0 H 10^3/uL
(4.8-10.8)
RBC 3.83 L 10^6/uL
(4.20-5.40)
Hct 36.4 L %
(37.0-47.0)
MCH 32.4 H pg
(27.0-31.0)
Abs Immat Gran (auto) 0.2 H 10^3/uL
(0-0.05)
Absolute Neuts (auto) 7.4 H 10^3/uL
(1.4-6.5)
Absolute Monos (auto) 0.9 H 10^3/uL
(0.1-0.6)
Immature Gran % 1.7 H %
(0-0.5)
Sodium 133 L mmol/L
(135-145)
Chloride 97 L mmol/L
(98-107)
Carbon Dioxide 33 H mmol/L
(22-30)
BUN 32 H mg/dl
(7-17)
Glucose 114 H mg/dl
(70-99)
04/29/23 08:37
04/29/23 08:37
Vital Signs
Initial and Last Documented VS:
Initial Vital Signs
Temp Pulse Resp BP Pulse Ox
98.9 F 69 20 128/69 93
04/29/23 08:06 04/29/23 08:06 04/29/23 08:06 04/29/23 08:06 04/29/23 08:06
Last Documented Vital Signs
Temp Pulse Resp BP Pulse Ox
98.9 F 64 18 124/58 96
04/29/23 08:06 04/29/23 11:45 04/29/23 11:45 04/29/23 11:00 04/29/23 11:45
MDM/Problems Addressed
Differential Diagnosis Includes:
Heart failure, bronchospasm, pulmonary fibrosis or other progressive pulmonary disease.
MDM/Problems Addressed:
Patient has a fairly benign exam. There is no wheezing noted on exam. She does not have significant crackles. Her BNP is normal. CT of the chest was performed and there was no evidence for PE. There is motion artifact. No obvious infiltrate.
Some groundglass changes but not enough to explain her hypoxia on exertion. Patient was evaluated by respiratory to see if she qualified for home oxygen. She did not desat here with the ambulatory test. Her pulse ox did not go below 94%. She
does not qualify for home oxygen. I suspect much of her symptomatology is related more to deconditioning than a VQ mismatch. Ultimately patient stable for discharge home and she will follow-up with her primary and her diet supervisor.
Chronic conditions affecting care: COPD
*Radiology
Radiology exam reviewed: radiology read reviewed
*Pulse Oximetry
Patient hypoxic: no
*Critical Care Note
Total Time (30-74mins, 75-104mins- exclusive of procedures): Not Applicable
Patient Management
Social determinants of health affecting care: Strong social support
ED Attending Note
-
Portions of this chart may have been created with voice recognition software.� Occasional wrong word or��sound alike� substitutions may have occurred due to the inherent limitations of voice recognition software.
Discharge Plan
Departure
Patient Disposition: Home (Routine Discharge)
Date of Disposition: 04/29/23
Time of Disposition: 12:23
Patient with high blood pressure during this ER visit?: No
Condition: Good
Discharge Problem:
Dyspnea on exertion
Instructions: Shortness of Breath (Dyspnea) (DC)
Prescriptions:
No Action
gabapentin 400 MG capsule
400 mg PO TID
cyanocobalamin (vitamin B-12) 1,000 MCG tablet
1,000 mcg PO DAILY
rosuvastatin 5 MG tablet
5 mg PO QPM
metoprolol tartrate 25 MG tablet
25 mg PO BID
cholecalciferol (vitamin D3) [Vitamin D3] 1,000 UNIT tablet,chewable
1,000 units PO DAILY
fluoxetine 40 mg capsule
40 mg PO DAILY
amitriptyline 25 mg tablet
25 mg PO HS
calcium carbonate 500 mg calcium (1,250 mg) Tablet
500 mg PO DAILY
ascorbic acid (vitamin C) [Vitamin C] 500 mg Tablet
1,000 mg PO DAILY
furosemide 20 mg tablet
20 mg PO DAILY
aripiprazole 2 mg tablet
2 mg PO DAILY
miconazole nitrate [Miconazorb AF] 2 % Powder
1 applic topical BID Qty: 85 0RF
guaifenesin 600 mg Tablet Extended Release 12hr
1,200 mg PO Q12 Qty: 28 0RF
albuterol sulfate 90 mcg/actuation HFA aerosol inhaler
1 puff INHALATION R Q4 PRN (Reason: sob/wheezing) Qty: 8.5 0RF
nifedipine 30 mg Tablet Extended Release
30 mg PO DAILY Qty: 30 0RF
tamsulosin 0.4 mg Capsule
0.4 mg PO DAILY Qty: 30 0RF
pantoprazole [Protonix] 20 mg Tablet,Delayed Release (Dr/Ec)
20 mg PO DAILY
dextromethorphan-guaifenesin 5-100 mg/5 mL liquid
10 ml PO Q8H PRN (Reason: Cough) Qty: 500 0RF
nystatin 100,000 unit/mL suspension
4 ml PO QID
Referrals:
Samira Patel MD [Family Provider] -
Bashir Robbins MD [Active] -
Activity Restrictions/Additional Instructions:
Please follow up with your primary care doctor and the diet supervisor office.
Interventions
Interventions:
*Risk Screen - Suicide Last Done: 04/29/23 08:06
*General Assessment Last Done: 04/29/23 08:39
*Neglect/Abuse Screening Last Done: 04/29/23 08:06
ED- Fall Risk Assessment Last Done: 04/29/23 08:39
*ED COVID-19 Vaccine History Last Done: 04/29/23 08:06
*Nursing Disposition Last Done: 04/29/23 12:29
ED- Cardiac Assessment Last Done: 04/29/23 08:39
ED- Pulmonary Assessment Last Done: 04/29/23 08:39
Discharge Date and Time
Discharge Date/Time: 04/29/23 12:30
[2023-04-29 08:39] VITALS: BMI 39.4
[2023-04-29 08:57] LABS: Blood Urea Nitrogen 32 mg/dl (7-17); Calcium 8.6 mg/dl (8.4-10.2); Carbon Dioxide 33 mmol/L (22-30); Chloride 97 mmol/L (98-107); Estimated Creatinine Clearance 53 ml/min; Glucose 114 mg/dl (70-99); Magnesium 2.1 mg/dl (1.6-2.3); Potassium 4.4 mmol/L (3.5-5.1); Sodium 133 mmol/L (135-145); eGFR > 60.00
[2023-04-29 09:05] LABS: % Basophils 0.2 % (0-2); % Eosinophils 2.1 % (0-6); % Immature Granulocytes 1.7 % (0-0.5); % Lymphocytes 20.9 % (20.5-51.1); % Monocytes 8.1 % (1.7-9.3); Absolute Eosinophils 0.2 10^3/uL (0-0.7); Absolute Immature Granulocytes 0.2 10^3/uL (0-0.05); Absolute Lymphocytes 2.3 10^3/uL (1.2-3.4); Absolute Monocytes 0.9 10^3/uL (0.1-0.6); Absolute Neutrophils 7.4 10^3/uL (1.4-6.5); Hematocrit 36.4 % (37.0-47.0); Hemoglobin 12.4 g/dL (12.0-16.0); Mean Corp Hgb Conc. 34.1 g/dL (33.0-37.0); Mean Corpuscular Hgb 32.4 pg (27.0-31.0); Mean Platelet Volume 9.1 fL (7.4-10.4); Nucleated Red Blood Cells % 0 %; Platelet Count 201 10^3/uL (130-400); Red Blood Cell Count 3.83 10^6/uL (4.20-5.40); Red Cell Dist. Width 13.9 % (11.5-14.5)
[2023-04-29 09:06] LABS: NT-proBNP 135 pg/ml
[2023-04-29 09:15] VITALS: BP 133/57
[2023-04-29 10:02] VITALS: BP 130/60
[2023-04-29 11:00] VITALS: BP 124/58
--- NOTE | 2023-04-29 11:58 | EDRN ---
respiratory was contacted to do a home [address] Guajardo
--- NOTE | 2023-04-29 12:39 | CM ---
CM was consulted for discharge planning and oxygen. CM advised bedside RN that patient will need oxygen testing. As per MD, patient does not qualify for medicare reimbursed oxygen. Patient and daughter are aware and do not want to proceed with self
pay options.
Patient is known to [facility]. CM updated [facility] with ED visit documents.
PLAN: Home with [facility].
== END 2023-04-29 12:30 | disposition home or self-care (01) ==
LOC: EMR 08:04
PROVIDERS: EMERGENCY PHYSICIAN Emergency Medicine; FAMILY PHYSICIAN Emergency Medicine; OTHER PHYSICIAN Psychiatry & Neurology Neurology; OTHER PHYSICIAN Registered Nurse
DX: J44.1 Chronic obstructive pulmonary disease with (acute) exacerbation (principal); R06.09 Other forms of dyspnea; R60.0 Localized edema; M54.9 Dorsalgia, unspecified; M79.7 Fibromyalgia; I10 Essential (primary) hypertension; E78.00 Pure hypercholesterolemia, unspecified; G89.29 Other chronic pain; G62.9 Polyneuropathy, unspecified; Z98.0 Intestinal bypass and anastomosis status; Z90.49 Acquired absence of other specified parts of digestive tract; Z79.899 Other long term (current) drug therapy; Z88.0 Allergy status to penicillin; Z88.2 Allergy status to sulfonamides
CPT/HCPCS: 99285; 71046; 71275; 80048; 83735; 83880; 85025; 93005; Q9967

== ENCOUNTER 2023-05-05 12:09 | Emergency (ER) | payer OTHER, SELFPAY ==
[2023-05-05 12:13] VITALS: BP 152/78
--- NOTE | 2023-05-05 13:13 | ED.GENMED ---
History of Present Illness
General
Chief Complaint: Blood Pressure Problem
Source: patient
Exam Limitations: none
Time Seen by Provider: 05/05/23 13:04
Nursing documentation reviewed up to this point in time: agreed with
Travel History
Have you had any contact with someone who has COVID-19?: No
Do you have any symptoms of coronavirus? Fever > 100 degrees, chills, cough, shortness of breath, sore throat, loss of taste or smell, muscle aches, or headache?: No
History of Present Illness
History of Present Illness:
Patient is a 88-year-old female who presents to the ER for evaluation. She reports visiting nurse saw patient today and sent her in for evaluation. She has had a couple days of cough nurse also noted the patient's blood pressure was high and nurse
was concerned about mild cellulitis starting on right anterior leg. Patient does notice mild redness but denies any pain. She denies any fever or chills. She admits to mild intermittent cough but denies any recent illness fever chills. She is
not short of breath. She denies any abdominal pain nausea vomiting headache blurred vision . When asked she does complain sometimes of very mild burning with urination
Past History
Past History
ED Past Medical History: Fibromyalgia, HTN, Hypercholesterolemia and Other (chronic back pain and neuropathy)
ED Past Surgical History: Bowel resection and Cholecystectomy
Social History
Tobacco: Non-smoker
Alcohol: Occasional
Drug: None
Personal:
Living: assisted living
Review of Systems
Review of Systems
Allergies reviewed?: Yes
All Other Systems: ROS reviewed and negative except as documented in HPI and ROS
Constitutional: Denies fever, fatigue or chills
EENT: Reports no symptoms
Respiratory: Reports cough; Denies trouble breathing
Cardiac: Reports no symptoms
ABD/GI: Reports no symptoms
: Reports dysuria
Musculoskeletal: Reports other (small amt of redness to right leg )
Skin: Reports no symptoms
Neurological: Reports no symptoms
Psychiatric: Reports no symptoms
Phy Exam
General Physical Exam
General Presentation: no apparent distress
General age: appears stated age
General Skin: warm and dry
General Habitus: normal
General Mental: alert
General Hydration: appears well hydrated
Cardiovascular Exam
Cardiovascular Exam: regular rate/rhythm
Pulmonary Exam
Pulmonary Exam: lungs clear and no respiratory distress
Neurological Exam
Neurological Exam: alert and oriented x3
Dwayne Coma Scale
Eye Opening: Spontaneous
Verbal Response: Oriented
Motor Response: Obeys Commands
GCS Total Score: 15
Musculoskeletal Exam
Musculoskeletal Exam: full ROM and other (small area right anterior lower leg redness + strong pulses b/l )
Skin Exam
Skin Exam: normal color and warm/dry
Psychiatric Exam
Psychiatric Exam: normal mood/affect
Course
Orders/Labs/Results
Orders:
Orders
05/05/23 14:00
Cardiac Monitoring- Treatment ONCE
05/05/23 14:01
Electrocardiogram (*1) Stat
Reason for Study: Abdominal Pain
EKG- Treatment ONCE
Chest [CR Chest - 2 Views ] Urgent
Comment:
Reason For Exam: cough
05/05/23 14:27
Complete Blood Count/With Diff Urgent
Comprehensive Metabolic Panel Urgent
Urinalysis Reflex To Culture Urgent
Date Specimen was Collected: 05/05/23
Time Specimen was Collected: 14:09
Urine Microscopic Reflex Cult Urgent
Urine Culture Urgent
LEONA Source: U
Specimen Description:
Date Specimen was Collected: 05/05/23
Time Specimen was Collected: 14:09
Abnormal Lab Results
05/05/23
14:27
RBC 3.82 L 10^6/uL
(4.20-5.40)
Hct 35.8 L %
(37.0-47.0)
MCH 32.5 H pg
(27.0-31.0)
Abs Immat Gran (auto) 0.1 H 10^3/uL
(0-0.05)
Immature Gran % 0.6 H %
(0-0.5)
Lymphocytes % 16.6 L %
(20.5-51.1)
Sodium 133 L mmol/L
(135-145)
BUN 20 H mg/dl
(7-17)
Glucose 118 H mg/dl
(70-99)
ALT 43 H U/L
(0-35)
Urine Nitrite (Reflex) Positive A
(Negative)
Leukocyte Esterase Rfl 2+ A
(Negative)
Urine WBC (Reflex) 30-40 A /HPF
(0-5)
Urine Bacteria (Reflex) Many A
(Negative)
05/05/23 14:27
05/05/23 14:27
Vital Signs
Initial and Last Documented VS:
Initial Vital Signs
Temp Pulse Resp BP Pulse Ox
98.6 F 80 18 152/78 95
05/05/23 12:13 05/05/23 12:13 05/05/23 12:13 05/05/23 12:13 05/05/23 12:13
Last Documented Vital Signs
Temp Pulse Resp BP Pulse Ox
98.6 F 73 21 148/74 92
05/05/23 12:13 05/05/23 15:00 05/05/23 15:00 05/05/23 15:00 05/05/23 15:00
Information Director consulted with Physician
Information Director consulted with physician?: Yes
Name of Physician Consulted: [email or web address]
MDM/Problems Addressed
Differential Diagnosis Includes:
Not limited to viral syndrome, pneumonia, bronchitis, cellulitis, UTI
MDM/Problems Addressed:
Patient is an 88-year-old female who lives on her own has visiting nurses who sent her here for evaluation. They noticed the patient had a cough for the past several days blood pressure was minimally elevated and they noticed redness to her right
leg. She presents awake alert no acute distress she denies feeling ill. She denies any recent fevers and is afebrile here with a normal white count. She has a stable hemoglobin of 12.4. No acute abnormalities on chemistries. She does complain
of mild intermittent dysuria. Urine 30�40 red blood cells however there are squamous cells but with symptoms will treat with Keflex as patient also has very minimal amount of redness to right lower leg will cover for cellulitis as well. Patient
however is well-appearing. Patient was recently here for shortness of breath several days ago had a full workup negative CAT scan. She has outpatient follow-up with pulmonary. No acute findings on chest x-ray. Stable for discharge home.
*Critical Care Note
Total Time (30-74mins, 75-104mins- exclusive of procedures): Not Applicable
ED Attending Note
-
Portions of this chart may have been created with voice recognition software.� Occasional wrong word or��sound alike� substitutions may have occurred due to the inherent limitations of voice recognition software.
Discharge Plan
Departure
Patient Disposition: Home (Routine Discharge)
Date of Disposition: 05/05/23
Time of Disposition: 15:44
Patient with high blood pressure during this ER visit?: Yes
Covid-19: Not Applicable
Discharge Problem:
Cellulitis, Acute UTI
Instructions: Urinary Tract Infection, Adult (DC), Cellulitis (Skin Infection), Adult (DC), BLOOD PRESSURE
Prescriptions:
New
cephalexin 500 mg capsule
500 mg PO Q6H Qty: 28 0RF
No Action
gabapentin 400 MG capsule
400 mg PO TID
cyanocobalamin (vitamin B-12) 1,000 MCG tablet
1,000 mcg PO DAILY
rosuvastatin 5 MG tablet
5 mg PO QPM
metoprolol tartrate 25 MG tablet
25 mg PO BID
cholecalciferol (vitamin D3) [Vitamin D3] 1,000 UNIT tablet,chewable
1,000 units PO DAILY
fluoxetine 40 mg capsule
40 mg PO DAILY
amitriptyline 25 mg tablet
25 mg PO HS
calcium carbonate 500 mg calcium (1,250 mg) Tablet
500 mg PO DAILY
ascorbic acid (vitamin C) [Vitamin C] 500 mg Tablet
1,000 mg PO DAILY
furosemide 20 mg tablet
20 mg PO DAILY
aripiprazole 2 mg tablet
2 mg PO DAILY
miconazole nitrate [Miconazorb AF] 2 % Powder
1 applic topical BID Qty: 85 0RF
guaifenesin 600 mg Tablet Extended Release 12hr
1,200 mg PO Q12 Qty: 28 0RF
albuterol sulfate 90 mcg/actuation HFA aerosol inhaler
1 puff INHALATION R Q4 PRN (Reason: sob/wheezing) Qty: 8.5 0RF
nifedipine 30 mg Tablet Extended Release
30 mg PO DAILY Qty: 30 0RF
tamsulosin 0.4 mg Capsule
0.4 mg PO DAILY Qty: 30 0RF
pantoprazole [Protonix] 20 mg Tablet,Delayed Release (Dr/Ec)
20 mg PO DAILY
dextromethorphan-guaifenesin 5-100 mg/5 mL liquid
10 ml PO Q8H PRN (Reason: Cough) Qty: 500 0RF
nystatin 100,000 unit/mL suspension
4 ml PO QID
Referrals:
Samira Patel MD [Family Provider] -
Activity Restrictions/Additional Instructions:
As discussed a prescription for Keflex was sent to your pharmacy for cellulitis to right lower leg and urinary tract infection. Take as directed. Stay well-hydrated. Follow-up close with your family doctor neck several days return if any
worsening of symptoms
Interventions
Interventions:
*Risk Screen - Suicide Last Done: 05/05/23 12:13
*General Assessment Last Done: 05/05/23 12:13
*Neglect/Abuse Screening Last Done: 05/05/23 12:13
*ED COVID-19 Vaccine History Last Done: 05/05/23 12:13
ED- Cardiac Assessment Last Done: 05/05/23 14:32
ED- Neurological Assessment Last Done: 05/05/23 14:32
ED- Pulmonary Assessment Last Done: 05/05/23 14:32
[2023-05-05 13:21] VITALS: BP 159/78
[2023-05-05 14:00] VITALS: BP 146/76
[2023-05-05 14:11] VITALS: BMI 40.9
[2023-05-05 14:35] LABS: % Basophils 0.1 % (0-2); % Eosinophils 3.8 % (0-6); % Immature Granulocytes 0.6 % (0-0.5); % Lymphocytes 16.6 % (20.5-51.1); % Monocytes 7.8 % (1.7-9.3); % Neutrophils 71.1 % (42.2-75.2); Absolute Eosinophils 0.3 10^3/uL (0-0.7); Absolute Immature Granulocytes 0.1 10^3/uL (0-0.05); Absolute Lymphocytes 1.4 10^3/uL (1.2-3.4); Absolute Monocytes 0.6 10^3/uL (0.1-0.6); Absolute Neutrophils 5.8 10^3/uL (1.4-6.5); Hematocrit 35.8 % (37.0-47.0); Hemoglobin 12.4 g/dL (12.0-16.0); Mean Corp Hgb Conc. 34.6 g/dL (33.0-37.0); Mean Corpuscular Hgb 32.5 pg (27.0-31.0); Mean Corpuscular Volume 93.7 fL (81.0-99.0); Mean Platelet Volume 8.5 fL (7.4-10.4); Nucleated Red Blood Cells % 0 %; Platelet Count 150 10^3/uL (130-400); Red Blood Cell Count 3.82 10^6/uL (4.20-5.40); Red Cell Dist. Width 14.1 % (11.5-14.5); White Blood Cell Count 8.2 10^3/uL (4.8-10.8)
[2023-05-05 14:43] LABS: Urine Albumin Trace (Neg - Trace); Urine Bilirubin Negative (Negative); Urine Character Slightly Cloudy (Clear); Urine Color Yellow; Urine Glucose Negative (Negative); Urine Ketone Negative (Negative); Urine Leukocyte 2+ (Negative); Urine Nitrite Positive (Negative); Urine Occult Blood Negative (Negative); Urine Urobilinogen Negative (Neg - 1+)
[2023-05-05 14:54] LABS: Urine Squamous Cell >30 /LPF (Few)
[2023-05-05 14:55] LABS: ALT (SGPT) 43 U/L (0-35); AST (SGOT) 31 U/L (14-36); Albumin 4.2 g/dl (3.5-5.0); Alkaline Phosphatase 74 U/L (38-126); Blood Urea Nitrogen 20 mg/dl (7-17); Calcium 8.9 mg/dl (8.4-10.2); Carbon Dioxide 27 mmol/L (22-30); Chloride 100 mmol/L (98-107); Estimated Creatinine Clearance 60 ml/min; Glucose 118 mg/dl (70-99); Potassium 4.1 mmol/L (3.5-5.1); Sodium 133 mmol/L (135-145); Total Bilirubin 0.9 mg/dl (0.2-1.3); Total Protein 6.9 g/dl (6.3-8.2); Urine Bacteria Many (Negative); Urine Red Blood Cell 0-2 /HPF (0-2); Urine White Cell 30-40 /HPF (0-5); eGFR > 60.00
[2023-05-05 15:00] VITALS: BP 148/74
[2023-05-05 16:50] VITALS: BP 148/74
== END 2023-05-05 17:22 | disposition home or self-care (01) ==
LOC: EMR 12:09
PROVIDERS: Nurse Practitioner; EMERGENCY PHYSICIAN Student in an Organized Health Care Education/Training Program; FAMILY PHYSICIAN Emergency Medicine
DX: N39.0 Urinary tract infection, site not specified (principal); L03.115 Cellulitis of right lower limb
CPT/HCPCS: 99285; 71046; 80053; 81003; 81015; 85025; 87077; 87086; 87186; 93005

== ENCOUNTER → 2023-05-11 12:46 | Outpatient (REF) | payer OTHER, SELFPAY ==
[2023-05-11 13:47] LABS: ALT (SGPT) 33 U/L (0-35); AST (SGOT) 30 U/L (14-36); Albumin 3.9 g/dl (3.5-5.0); Alkaline Phosphatase 74 U/L (38-126); Blood Urea Nitrogen 18 mg/dl (7-17); Carbon Dioxide 29 mmol/L (22-30); Chloride 95 mmol/L (98-107); Glucose 120 mg/dl (70-99); Potassium 3.8 mmol/L (3.5-5.1); Sodium 131 mmol/L (135-145); Total Protein 6.5 g/dl (6.3-8.2); eGFR > 60.00
[2023-05-11 13:51] LABS: NT-proBNP 186 pg/ml
== END ==
LOC: RAD 12:46
PROVIDERS: ATTENDING PHYSICIAN Emergency Medicine
DX: R60.0 Localized edema (principal); R06.09 Other forms of dyspnea; R19.8 Other specified symptoms and signs involving the digestive system and abdomen
CPT/HCPCS: 36415; 74177; 80053; 83880; Q9967

== ENCOUNTER 2023-06-02 09:42 | Day surgery (SDC) | payer OTHER, SELFPAY ==
[2023-06-02] VITALS (8 sets, daily range): BP systolic 116–151; BP diastolic 59–80; BMI 41.7
--- NOTE | 2023-06-02 13:10 | ITS.CL.CATH ---
[facility] - Catheterization
Cardiac Catheterization
Procedure Report:
RIGHT HEART CATHETERIZATION
Date of Procedure: 06/02/2023
Referring: Patrick Maddox MD
INDICATION: Progressive exertional dyspnea with lower extremity edema and suspected pulmonary disease
Right heart cath was performed at weight 206lb
RA: 14
RV: 54/16
PA: 54/27
PCWP: 22
Oximetry: Ao 90%, PA 65%, cardiac output 4.2, cardiac index 2.2
COMPLICATIONS: None
Radiation (mGy): 40.9
DAP (cm2.Gy): 6.8
Fluoroscopy time: 5.0 minutes
CONCLUSION:
1. Elevated right and left heart filling pressures
2. Moderate pulmonary hypertension
3. Findings suggest some component of HFpEF contributing to her exertional dyspnea along with her pulmonary disease
4. Will change current dose of furosemide from 20 mg twice daily to 40 mg every morning and add KCl 20 mEq daily. BMP will be ordered in 1 week.
Copy to: Patrick Maddox MD, Samira Patel MD
Jp Blair MD, [facility]
== END 2023-06-02 15:15 | disposition home or self-care (01) ==
LOC: CATH 09:42
PROVIDERS: ATTENDING PHYSICIAN Internal Medicine Cardiovascular Disease; FAMILY PHYSICIAN Emergency Medicine; OTHER PHYSICIAN Internal Medicine Cardiovascular Disease
DX: R60.0 Localized edema (principal); R06.09 Other forms of dyspnea; I27.20 Pulmonary hypertension, unspecified; I11.0 Hypertensive heart disease with heart failure
CPT/HCPCS: 93451

== ENCOUNTER → 2023-06-08 09:01 | Outpatient (REF) | payer OTHER, SELFPAY | LOC: RAD 09:01 | PROVIDERS: ATTENDING PHYSICIAN Nurse Practitioner Adult Health; FAMILY PHYSICIAN Emergency Medicine | DX: K21.00 Gastro-esophageal reflux disease with esophagitis, without bleeding (principal); R06.02 Shortness of breath | CPT/HCPCS: 71046; 74230; 92611 ==

== ENCOUNTER → 2023-06-21 09:48 | Outpatient (REF) | payer OTHER, SELFPAY ==
[2023-06-21 11:27] LABS: Blood Urea Nitrogen 20 mg/dl (7-17); Calcium 9.4 mg/dl (8.4-10.2); Carbon Dioxide 27 mmol/L (22-30); Chloride 98 mmol/L (98-107); Glucose 110 mg/dl (70-99); Potassium 4.4 mmol/L (3.5-5.1); Sodium 134 mmol/L (135-145); eGFR > 60.00
== END ==
LOC: OLABWIL 09:48
PROVIDERS: ATTENDING PHYSICIAN Nurse Practitioner Adult Health; REFERRING PHYSICIAN Internal Medicine Cardiovascular Disease
DX: I50.30 Unspecified diastolic (congestive) heart failure (principal)
CPT/HCPCS: 36415; 80048

== ENCOUNTER → 2023-11-01 10:36 | Outpatient (REF) | payer OTHER, SELFPAY ==
[2023-11-01 11:53] LABS: Blood Urea Nitrogen 18 mg/dl (7-17); Calcium 9.6 mg/dl (8.4-10.2); Carbon Dioxide 28 mmol/L (22-30); Chloride 99 mmol/L (98-107); Glucose 117 mg/dl (70-99); Potassium 4.5 mmol/L (3.5-5.1); Sodium 136 mmol/L (135-145); eGFR 54.19
== END ==
LOC: OLABWIL 10:36
PROVIDERS: ATTENDING PHYSICIAN Internal Medicine Cardiovascular Disease
DX: R06.02 Shortness of breath (principal)
CPT/HCPCS: 36415; 80048

== ENCOUNTER → 2023-11-22 10:58 | Outpatient (REF) | payer OTHER, SELFPAY ==
[2023-11-22 11:32] LABS: Blood Urea Nitrogen 18 mg/dl (7-17); Calcium 9.4 mg/dl (8.4-10.2); Carbon Dioxide 29 mmol/L (22-30); Chloride 96 mmol/L (98-107); Glucose 112 mg/dl (70-99); Potassium 3.7 mmol/L (3.5-5.1); Sodium 139 mmol/L (135-145); eGFR 54.19
== END ==
LOC: OLABWIL 10:58
PROVIDERS: ATTENDING PHYSICIAN Internal Medicine Cardiovascular Disease
DX: I50.33 Acute on chronic diastolic (congestive) heart failure (principal)
CPT/HCPCS: 36415; 80048

== ENCOUNTER → 2023-12-06 09:24 | Outpatient (REF) | payer OTHER, SELFPAY ==
[2023-12-06 12:44] LABS: Blood Urea Nitrogen 18 mg/dl (7-17); Calcium 9.5 mg/dl (8.4-10.2); Carbon Dioxide 27 mmol/L (22-30); Chloride 95 mmol/L (98-107); Glucose 127 mg/dl (70-99); Potassium 3.5 mmol/L (3.5-5.1); Sodium 141 mmol/L (135-145); eGFR 48.33
== END ==
LOC: OLABWIL 09:24
PROVIDERS: ATTENDING PHYSICIAN Internal Medicine Cardiovascular Disease
DX: I50.33 Acute on chronic diastolic (congestive) heart failure (principal)
CPT/HCPCS: 36415; 80048

== ENCOUNTER 2024-03-02 03:02 | Inpatient (IN) | payer OTHER, SELFPAY ==
[2024-03-01 23:11] VITALS: BP 135/60; BMI 37.6
[2024-03-01 23:12] VITALS: BP 135/60
[2024-03-01 23:29] LABS: % Basophils 0.2 % (0-2); % Eosinophils 0.9 % (0-6); % Immature Granulocytes 0.5 % (0-0.5); % Lymphocytes 8.9 % (20.5-51.1); % Monocytes 4.4 % (1.7-9.3); % Neutrophils 85.1 % (42.2-75.2); Absolute Eosinophils 0.1 10^3/uL (0-0.7); Absolute Immature Granulocytes 0.1 10^3/uL (0-0.05); Absolute Lymphocytes 1.2 10^3/uL (1.2-3.4); Absolute Monocytes 0.6 10^3/uL (0.1-0.6); Hematocrit 45.5 % (37.0-47.0); Hemoglobin 15.2 g/dL (12.0-16.0); Mean Corp Hgb Conc. 33.4 g/dL (33.0-37.0); Mean Corpuscular Hgb 32.3 pg (27.0-31.0); Mean Corpuscular Volume 96.6 fL (81.0-99.0); Nucleated Red Blood Cells % 0 %; Platelet Count 212 10^3/uL (130-400); Red Blood Cell Count 4.71 10^6/uL (4.20-5.40); Red Cell Dist. Width 13.6 % (11.5-14.5)
[2024-03-01 23:44] LABS: ALT (SGPT) 29 U/L (0-35); AST (SGOT) 33 U/L (14-36); Albumin 5.2 g/dl (3.5-5.0); Alkaline Phosphatase 68 U/L (38-126); Blood Urea Nitrogen 25 mg/dl (7-17); Calcium 9.8 mg/dl (8.4-10.2); Carbon Dioxide 29 mmol/L (22-30); Chloride 98 mmol/L (98-107); Estimated Creatinine Clearance 34 ml/min; Glucose 173 mg/dl (70-99); Lipase 276 U/L (23-300); Potassium 4.2 mmol/L (3.5-5.1); Sodium 138 mmol/L (135-145); Total Protein 8.2 g/dl (6.3-8.2); eGFR 48.03
[2024-03-01 23:52] LABS: Troponin I < 0.012 ng/ml
[2024-03-02] VITALS (9 sets, daily range): BP systolic 106–154; BP diastolic 48–78; BMI 36.5
--- NOTE | 2024-03-02 00:15 | ED.GENMED ---
History of Present Illness
General
Chief Complaint: Abdominal Symptoms
Source: patient
Exam Limitations: none
Time Seen by Provider: 03/01/24 23:30
History of Present Illness
History of Present Illness:
This is a 89 year old female that comes in by ambulance with c/o vomiting and diarrhea. States that this started after dinner tonight. States that she has also been on Macrobid for a urinary tract infection. States that she had chills, chest
tightness, SOB abd pain, nausea, vomiting, and diarrhea and dizziness. States that she is still having urinary burning. Denies any fever or headache.
Past History
Past History
ED Past Medical History: Cancer (Skin cancer), CHF, Fibromyalgia, HTN, Hypercholesterolemia, Psychiatric (Anxiety, Depression) and Other (chronic back pain and neuropathy, Bronchitis, Diverticulitis, IBS, )
ED Past Surgical History: Bowel resection, Cholecystectomy, Gynecological (Hysterectomy, ), Tonsilectomy (and adenoids) and Other (Cataracts, Breast tumor, )
Social History
Tobacco: Non-smoker
Alcohol: Occasional
Drug: None
Personal:
Living: alone
Review of Systems
Review of Systems
All Other Systems: ROS reviewed and negative except as documented in HPI and ROS
Constitutional: Reports chills; Denies fever
EENT: Reports no symptoms
Respiratory: Reports trouble breathing; Denies cough
Cardiac: Reports chest pain
ABD/GI: Reports abdominal pain, nausea, vomiting and diarrhea
: Reports dysuria; Denies frequency or urgency
Musculoskeletal: Reports no symptoms
Skin: Reports no symptoms
Neurological: Reports dizzy; Denies headache
Psychiatric: Reports no symptoms
Phy Exam
General Physical Exam
General Presentation: mild distress
General age: appears stated age
General Skin: warm and dry
General Habitus: elderly
General Mental: alert
General Hydration: appears well hydrated
ENT Exam
ENT Exam: TM's normal, pharynx normal and neck supple
Eye Exam
Eye Exam: EOMI
Cardiovascular Exam
Cardiovascular Exam: regular rate/rhythm, no edema, normal peripheral pulses and other (Murmur)
Pulmonary Exam
Pulmonary Exam: other (Rales 1/2 up on the left and right base)
Gastrointestinal Exam
Gastrointestinal Exam: soft, no organomegaly, no pulsatile mass, non distended, tender (Epigastric tenderness with palpation) and other (Hypoactive bowel sounds)
Musculoskeletal Exam
Musculoskeletal Exam: full ROM and no edema
Skin Exam
Skin Exam: normal color, warm/dry, no rash and no petechia
Psychiatric Exam
Psychiatric Exam: normal mood/affect
Course
Orders/Labs/Results
Orders:
Orders
03/01/24 23:20
EKG [Electrocardiogram (*1)] Urgent
Reason for Study: Tachycardia
03/01/24 23:21
EKG- Treatment ONCE
03/01/24 23:22
Complete Blood Count/With Diff Urgent
Comprehensive Metabolic Panel Urgent
Lipase Urgent
NT-proBNP Urgent
Comment: ADD ON
Troponin I Urgent
03/02/24 00:15
Ondansetron Injectable [Zofran] 4 mg IV NOW STA
03/02/24 00:17
CT Abd/pelvis W Iv Cont Urgent
Comment:
Reason For Exam: abd pain
Straight cath- Treatment ONCE
03/02/24 00:20
CR Chest - 2 Views Urgent
Comment:
Reason For Exam: SOB
03/02/24 00:27
Urinalysis Reflex To Culture Urgent
Date Specimen was Collected: 03/02/24
Time Specimen was Collected: 00:20
Urine Microscopic Reflex Cult Urgent
Urine Culture Urgent
LEONA Source: U
Specimen Description:
Date Specimen was Collected: 03/02/24
Time Specimen was Collected: 00:20
03/02/24 01:28
Doxycycline Hyclate [Vibramycin] 100 mg 0.9% Sodium Chloride 250 ml [Nss] 250 ml IV NOW
03/02/24 01:29
Add On- LAB Urgent
Tests Added?: Pro=BNP
03/02/24 01:44
Doxycycline Hyclate [Vibramycin] 100 mg 0.9% Sodium Chloride 250 ml [Nss] 250 ml IV NOW
03/02/24 02:00
Flush (0.9% Sodium Chloride) [Flush (Nss)] See Dose Instructions IV PER PROTOCOL
Vancomycin [Vancocin] 2,000 mg 0.9% Sodium Chloride 500 ml [Nss] 500 ml IV ONCE
03/02/24 02:33
Admit/Transfer Patient As Directed
Co-Sign Provider:
Level of Care: Inpatient admission
Assign to:: Medical/Surgical
Physician / Group: hospitalist
Diagnosis: gastroenteritis, uti
Reason for Hospitalization: acute gastroenteritis and uti
Expected length of stay greater than two midnights?: Yes
ELOS- Estimated Length of Stay in days: 2
I certify the patient meets the requirements for IP care: Yes
PRN Pain Medication Management As Directed
May give lesser potent ordered pain med per pt: Yes
preference::
Protocol:: Medication orders for pain may be administered in a
manner that supports deferring to patient preference
when the pt is:
- Requesting an ordered lesser potent pain medication.
Least to most potent pain medications are defined
as: acetaminophen < NSAID < tramadol < opioids
(morphine, oxycodone, hydromorphone).
- Requesting a lesser dose of the same medication IF
ORDERED.
- Requesting a less intrusive route of administration
if both routes are prescribed by the provider (PO <
IV).
03/02/24 02:34
Code Status As Directed
Resuscitation Status: Do not resuscitate
Reached after discussion with pt or family/Healthcare POA: Yes
03/02/24 02:35
DNR Bracelet Application ONCE
Abnormal Lab Results
03/01/24 03/02/24
23:22 00:27
WBC 13.0 H 10^3/uL
(4.8-10.8)
MCH 32.3 H pg
(27.0-31.0)
Abs Immat Gran (auto) 0.1 H 10^3/uL
(0-0.05)
Absolute Neuts (auto) 11.0 H 10^3/uL
(1.4-6.5)
Neutrophils % 85.1 H %
(42.2-75.2)
Lymphocytes % 8.9 L %
(20.5-51.1)
BUN 25 H mg/dl
(7-17)
Creatinine 1.1 H mg/dL
(0.6-1.0)
Glucose 173 H mg/dl
(70-99)
Albumin 5.2 H g/dl
(3.5-5.0)
Urine Ketones Trace A
(Negative)
Urine Nitrite (Reflex) Positive A
(Negative)
Leukocyte Esterase Rfl 1+ A
(Negative)
Urine WBC (Reflex) 11-15 A /HPF
(0-5)
Urine Bacteria (Reflex) Many A
(Negative)
Urine Glucose 3+ A
(Negative)
03/01/24 23:22
03/01/24 23:22
Leukocytosis, Dehydration. Hyperglycemia. Albumin slightly elevated. Troponin <0.012, Lipase normal at 276. Pro-BNP 241 Urine positive for infection.
Vital Signs
Initial and Last Documented VS:
Initial Vital Signs
Temp Pulse Resp BP Pulse Ox
98.4 F 71 12 135/60 96
03/01/24 23:11 12/19/24 23:11 03/01/24 23:11 03/01/24 23:11 03/01/24 23:11
Last Documented Vital Signs
Temp Pulse Resp BP Pulse Ox
98.4 F 74 25 154/66 94
03/01/24 23:11 03/02/24 02:30 03/02/24 02:30 03/02/24 02:00 03/02/24 02:31
MDM/Problems Addressed
Differential Diagnosis Includes:
Viral GI syndrome. Bowel Obstruction, Enteritis.
MDM/Problems Addressed:
This is a 89 year old female that comes in with c/o nausea, vomiting, and diarrhea. States that she had chest tightness, SOB with the abd cramping. States that this started after dinner tonight. States that she is also being treated for a UTI but
still has burning.
Will check labs, CT abd, Chest x-ray, Urine.
Back into see patient. Explained that she still has a UTI. Patient is very weak and would not be able to care for herself. Chest x-ray shows that there may be aspiration Pneumonia. Will start patient on antibiotics. Hospitalist notified.
Chronic conditions affecting care: Previous abdomnial surgery
Acute Exacerbation and/or Progression of Chronic Illness: Previous abdomnial surgery
*Radiology
Radiology exam reviewed: preliminary read by ED provider (Chest= Aspiration Pneumonia right sided), radiology read reviewed (CT night hawk- Fluid throughout most of the small bowel and right colon. Correlate for signs of enteritis. NO bowel
obstruction, appreciable focal inflammatory process, or perforation. Normal appendix, Stomach appears within normal limits. Cholecystectomy. NO significant ductal dilation. NO signs ), all reviewed NAD by ED Provider (CT cont-of pancreatitis. NO
ureteral obstruction. Bladder is empty limiting evaluation. Bibasilar atelectasis and/or scarring visualized lung bases. Cornoary and systemic atherosclerotic calcifications. Punctate nonobstructing left renal calculi. Previous partial distal
colonic resection.) and other (CT cont- previous partial distal colonic resection. Hysterectomy. Degenerative changes in the spine, pelvis and hips. )
*Pulse Oximetry
Patient hypoxic: no
*EKG
Interpreted by ED Provider?: Yes
Heart Rate: 69
Rate: normal
Rhythm: sinus arrhythmia
Winlock: left axis deviation
Interval: normal interval
QRS Pattern: normal QRS
Ischemia: T-wave inversion (I, aVL, V2, )
*Computer Systems Technician Interpretation
Rate: normal
Heart Rate: 68
Rhythm: sinus
*Critical Care Note
Total Time (30-74mins, 75-104mins- exclusive of procedures): Not Applicable
ED Attending Note
-
Portions of this chart may have been created with voice recognition software.� Occasional wrong word or��sound alike� substitutions may have occurred due to the inherent limitations of voice recognition software.
Discharge Plan
Departure
Patient Disposition: Admit
Date of Disposition: 03/02/24
Time of Disposition: 01:33
Admit to: Telemetry
Presentation/result/management discussed w/ accepting MD/DO: Hospitalist
Patient with high blood pressure during this ER visit?: Yes
Condition: Good
Covid-19: Not Applicable
Discharge Problem:
Urinary tract infection, Nausea vomiting and diarrhea, Possible aspiration Pneumonia
Prescriptions:
No Action
gabapentin 400 MG capsule
400 mg PO TID
rosuvastatin 5 MG tablet
5 mg PO QPM
metoprolol tartrate 25 MG tablet
25 mg PO BID
fluoxetine 40 mg capsule
40 mg PO DAILY
calcium carbonate 500 mg calcium (1,250 mg) Tablet
600 mg PO DAILY
ascorbic acid (vitamin C) [Vitamin C] 500 mg Tablet
1,000 mg PO DAILY
albuterol sulfate 90 mcg/actuation HFA aerosol inhaler
1 puff INHALATION R Q4 PRN (Reason: sob/wheezing) Qty: 8.5 0RF
nifedipine 30 mg Tablet Extended Release
30 mg PO DAILY Qty: 30 0RF
pantoprazole [Protonix] 20 mg Tablet,Delayed Release (Dr/Ec)
40 mg PO DAILY
cholecalciferol (vitamin D3) [Vitamin D3] 25 mcg (1,000 unit) Tablet
25 mcg PO DAILY
miconazole nitrate [Miconazorb AF] 2 % powder
1 applic topical BID PRN (Reason: fungal rash in lef groin)
furosemide [Lasix] 40 mg tablet
40 mg PO DAILY Qty: 90 5RF
spironolactone 25 mg Tablet
25 mg PO DAILY
dapagliflozin propanediol [Farxiga] 5 mg Tablet
5 mg PO DAILY
Referrals:
Samira Patel MD [Family Provider] -
Interventions
Interventions:
*Risk Screen - Suicide Last Done: 03/01/24 23:11
*General Assessment Last Done: 03/01/24 23:11
*Neglect/Abuse Screening Last Done: 03/01/24 23:11
ED- Fall Risk Assessment Last Done: 03/01/24 23:11
*ED COVID-19 Vaccine History Last Done: 03/01/24 23:11
TC-Ddsbxh-Bmrolxeqnm Assessment Last Done: 03/01/24 23:17
Discharge Date and Time
Print Language: [id number]
[2024-03-02] MEDS: ZOFRAN 4 MG IV ×2 (00:20→05:11)
[2024-03-02 00:39] LABS: Urine Albumin Trace (Neg - Trace); Urine Bilirubin Negative (Negative); Urine Character Slightly Cloudy (Clear); Urine Color Yellow; Urine Glucose 3+ (Negative); Urine Ketone Trace (Negative); Urine Leukocyte 1+ (Negative); Urine Nitrite Positive (Negative); Urine Occult Blood Negative (Negative); Urine Specific Gravity 1.015 (<1.030); Urine Urobilinogen Negative (Neg - 1+)
[2024-03-02 00:44] LABS: Urine Squamous Cell 0-2 /LPF (Few)
[2024-03-02 00:45] LABS: Urine Bacteria Many (Negative); Urine Red Blood Cell 0-2 /HPF (0-2)
[2024-03-02] MEDS: VIBRAMYCIN 260 MG IV (02:21)
--- NOTE | 2024-03-02 02:22 | HPS.HSE ---
Family Physician
-
Family Physician: Samira Patel MD
Chief Complaint
-
Nausea vomiting and diarrhea
History of Present Illness
This is an 89-year-old female who presents from assisted living with episode of nausea vomiting and diarrhea, she has past medical history significant for FLORENCIO, hypertension, recurrent urinary tract infections and morbid obesity.
Patient reports that after having dinner just before coming to the emergency department she developed severe nausea and vomited several times. It was nonbloody and nonbilious and had the food contents that she had previously eaten. She also had
diarrhea and abdominal pain at the same time. She had continued vomiting so she was brought to the emergency department. Patient reports that otherwise she has been taking Macrobid for the last 3 days for urinary symptoms. She reports urinary
urgency, occasional incontinence and some dysuria. She states she is felt slightly better as she since she has been placed on the Macrobid. She is pending possible urology evaluation for recurrent UTIs. She denies history of stones. She has no
known sick contacts. She is not aware of actually aspirating and denies shortness of breath. She does reported that she had a deep cough after the episodes of vomiting.
In the emergency department she was afebrile, oxygen saturation was above 93% on room air, blood pressure was 150/68 with a pulse of 69. White count was 13,000 with normal hemoglobin and platelet counts. Electrolytes BUN/creatinine were within
normal limits. ECG with normal sinus rhythm at a rate of [address]-T wave changes. Troponin was negative. She had a CT which showed right-sided infiltrates which is new compared to prior. CT of the abdomen pelvis showed fluid through the
small bowel and right colon concerning for enteritis. UA was markedly positive.
Medical History
Past Medical History
Past Medical History: Reports HTN, Hypercholesterolemia and Other (FLORENCIO)
Additional Past Medical History:
Fibromyalgia
Past Surgical History: Reports Other
Social History
Tobacco: Non-smoker
Alcohol: None
Drug: None
Personal: Single
Living: Assisted Living
Employment: Retired
Family History
Family History: Not pertinent
Allergies / Home Medications
Allergies reflects when Allergies were last updated in [facility].
Home Medications with original date entered in [facility]
Allergy/Medication List:
Allergies
Allergy/AdvReac Type Severity Reaction Status Date / Time
Penicillins Allergy Rash Verified 03/01/24 23:19
Sulfa (Sulfonamide Allergy Rash Verified 03/01/24 23:19
Antibiotics)
Home Medications
gabapentin 400 mg capsule 400 mg PO TID Neurological Condition 06/25/15
metoprolol tartrate 25 mg tablet 25 mg PO BID Heart Disease/Condition 06/25/15
rosuvastatin 5 mg tablet 5 mg PO QPM High Cholesterol 06/25/15
ascorbic acid (vitamin C) 500 mg tablet (Vitamin C) 1,000 mg PO DAILY Supplement 03/18/23
calcium carbonate 600 mg PO DAILY Supplement 03/18/23
fluoxetine 40 mg capsule 40 mg PO DAILY Neurological Condition 03/18/23
albuterol sulfate 90 mcg/actuation aerosol inhaler 1 puff inhalation R Q4 PRN sob/wheezing #8.5 grams 03/20/23
nifedipine 30 mg tablet,extended release 30 mg PO DAILY #30 tabs 03/22/23
pantoprazole 20 mg tablet,delayed release (Protonix) 40 mg PO DAILY Gastrointestinal Issue 04/18/23
cholecalciferol (vitamin D3) 25 mcg (1,000 unit) tablet (Vitamin D3) 25 mcg PO DAILY 06/02/23
furosemide 40 mg tablet (Lasix) 40 mg PO DAILY #90 tabs 06/02/23
miconazole nitrate 2 % topical powder (Miconazorb AF) 1 applic topical BID PRN fungal rash in lef groin 06/02/23
dapagliflozin propanediol 5 mg tablet (Farxiga) 5 mg PO DAILY 03/02/24
spironolactone 25 mg tablet 25 mg PO DAILY 03/02/24
Review of Systems
-
History Source: Patient
Constitutional: Reports No Symptoms
EENT: Reports No Symptoms
Respiratory: Reports Cough
Cardiac: Reports No Symptoms
Abdomen/GI: Reports Abdominal Pain, Nausea, Vomiting and Diarrhea
: Reports No Symptoms
Musculoskeletal: Reports No Symptoms
Skin: Reports No Symptoms
Neurological: Reports No Symptoms
Endocrine: Reports No Symptoms
Hematologic/Lymphatic: Reports No Symptoms
Psych: Reports No Symptoms
Physical Exam
Vital Signs
Vital Signs
Temp Pulse Resp BP Pulse Ox
98.4 F 75 22 154/66 91
03/01/24 23:11 03/02/24 02:00 03/02/24 01:30 03/02/24 02:00 03/02/24 01:45
Physical Exam
General: Well Developed and Conversant
HEENT: NormoCephalic, Anicteric, Moist mucous membranes, Atraumatic and PERRLA
Respiratory: Rales
Cardiac: S1/S2 and Regular Rhythm
Breast: Deferred by me
GI: Soft, Non Distended and Normal Bowel Sounds
Rectal: Deferred by Provider
Genito-urinary: No costovertebral tender
Musculoskeletal: No Clubbing, No Cyanosis, Edema, Left Lower Extremity (Trace) and Edema, Right Lower Extremity (Trace)
Skin: Warm
Neuro: AO x 3 and Nonfocal/grossly intact
Hematologic/Lymphatic: No Lymphadenopathy
Psych: Calm
Laboratory Results
-
03/01/24 23:22
03/01/24 23:22
Laboratory Results
Total Bilirubin 1.0 mg/dl (0.2-1.3) 03/01/24 23:22
AST 33 U/L (14-36) 03/01/24 23:22
ALT 29 U/L (0-35) 03/01/24 23:22
Alkaline Phosphatase 68 U/L (38-126) 03/01/24 23:22
Troponin I < 0.012 ng/ml 03/01/24 23:22
Lipase 276 U/L (23-300) 03/01/24 23:22
Data Reviewed
-
Diagnostic Radiology: Image Personally Visualized and interpreted
CT Scan: Report Reviewed by me
Medical Tests (Nuc Med, Echo, EKG etc): Image Personally Visualized and interpreted
Lab Data: Labs Reviewed by me
Impression/Plan
-
IMPRESSION:
89-year-old with history of hypertension, FLORENCIO, morbid obesity, recurrent UTIs who presents with acute symptoms of gastroenteritis including nausea vomiting diarrhea that started after her last dinner yesterday. Found to have enteritis on CT scan.
She hemodynamically stable, chest x-ray shows new infiltrates consistent with aspiration. UA was positive. She is uncomfortable but appears nontoxic.
PLAN:
1. Gastroenteritis - Symptoms and CT scan c/w acute gastroenteritis versus possible food poisoning. No clear history of sick contacts. HD stable and non-toxic. Abdominal exam benign.
- admit to med/surg
- check norovirus
- hold diuretics for now
- antiemetics. HD stable, no IV fluids
- advance diet as tolerated
2. Aspiration - RLL infiltrate new on compared to May 2023. Not coughing and afebrile currently. Oxygen sat 93% and no increased WOB.
- given uti, will cover aspiration with unasyn for now
- incentive spirometer
- hold CPAP and provide oxygen HS
- nebs prn
3. HTN - HD stable
- continue nifedipine and metoprolol
- restart lasix and aldactone in am when tolerating po
4. UTI - h/o recurrent uti on bid since tuesday with ongoing symptoms and +u/a
- urine cultures sent
- unasyn as above
DVT PPX - lovenox sq
Code status - DNR.
[2024-03-02 02:33] LABS: NT-proBNP 241 pg/ml
--- NOTE | 2024-03-02 04:41 | PTCARENOTE ---
Patient received from ED; patient c/o nausea and diarrhea; transferred to bed by staff.
[2024-03-02] MEDS: VANCOCIN 540 MG IV (04:57)
[2024-03-02] MEDS: NSS 1000 IV (05:41)
--- NOTE | 2024-03-02 08:43 | W.PN.HOSP.TC ---
Today's Communication/Plan
-
see bold
Assessment / Plan
Assessment / Plan
89-year-old with history of hypertension, FLORENCIO, morbid obesity, recurrent UTIs who presents with acute symptoms of gastroenteritis including nausea vomiting diarrhea that started after her last dinner yesterday. Found to have enteritis on CT scan.
She hemodynamically stable, chest x-ray shows new infiltrates consistent with aspiration. UA was positive. She is uncomfortable but appears nontoxic.
PLAN:
1. Acute norovirus gastroenteritis
- Symptoms and CT scan c/w acute gastroenteritis versus possible food poisoning. No clear history of sick contacts. HD stable and non-toxic. Abdominal exam benign.
- Continue antiemetics, diet as tolerated
- Hold diuretics, gentle IV fluids
2. Aspiration - RLL infiltrate new on xray compared to May 2023. Not coughing and afebrile currently. Oxygen sat 93% and no increased WOB.
- Continue Rocephin/Flagyl D1, IS, bronchodilators as needed
- Hold CPAP and provide oxygen HS
3. HTN - HD stable
- Continue nifedipine and metoprolol
- Hold lasix and aldactone secondary to diarrhea
4. UTI - h/o recurrent uti on macrobid since tuesday with ongoing symptoms and +u/a
-Continue Rocephin D1, follow-up on urine cultures
5. GERD
� Continue PPI
6. Fibromyalgia
� Continue gabapentin
7. Hyperlipidemia
Continue statin
8. Chronic heart failure with a preserved ejection fraction
-Hold Lasix/Aldactone, trend daily weights
9. Obesity due to excess calories
� Affects all aspects of care
DVT PPX - lovenox sq
Code status - DNR
Physical Exam
General: Obese, no acute distress
HEENT: Normocephalic, Atraumatic, EOMI, MMM
Respiratory: Clear to Auscultation bilaterally
Cardiac: Normal S1/S2, Regular Rate and Rhythm
GI: Soft, Nontender, Nondistended, Normal Bowel Sounds
Extremities: No Clubbing, Cyanosis, or Edema
Neuro: Nonfocal/Grossly Intact
Psych: Calm, Cooperative
Derm: No Visible lesions
Anticipated Discharge: Within 24 hours
Subjective/Interval History
-
Date of Service: March 02, 2024
Patient has mild nausea. Vomiting resolved. Continues to have diarrhea. Also having abdominal pain, improved from admission. No fever.
Objective Data
-
Labs:
Laboratory Results
03/01/24 03/02/24
23:22 07:46
WBC 13.0 H Pending
Hgb 15.2 Pending
Hct 45.5 Pending
Plt Count 212 Pending
Sodium 138 Pending
Potassium 4.2 Pending
Chloride 98 Pending
Carbon Dioxide 29 Pending
BUN 25 H Pending
Creatinine 1.1 H Pending
Glucose 173 H Pending
Calcium 9.8 Pending
Total Bilirubin 1.0
AST 33
ALT 29
Alkaline Phosphatase 68
Vital Signs:
Vital Signs
Temp Pulse Resp BP Pulse Ox
99.3 F 78 13 135/78 93
03/02/24 04:45 03/02/24 04:45 03/02/24 04:45 03/02/24 04:45 03/02/24 04:45
[2024-03-02 08:55] LABS: Glucose - Point of Care 145 mg/dl (70-99)
[2024-03-02 08:56] LABS: Hematocrit 43.2 % (37.0-47.0); Hemoglobin 14.3 g/dL (12.0-16.0); Mean Corp Hgb Conc. 33.1 g/dL (33.0-37.0); Mean Corpuscular Hgb 31.8 pg (27.0-31.0); Mean Platelet Volume 9.4 fL (7.4-10.4); Platelet Count 197 10^3/uL (130-400); Red Cell Dist. Width 13.7 % (11.5-14.5)
[2024-03-02 09:15] LABS: Blood Urea Nitrogen 26 mg/dl (7-17); Carbon Dioxide 26 mmol/L (22-30); Chloride 101 mmol/L (98-107); Estimated Creatinine Clearance 41 ml/min; Glucose 149 mg/dl (70-99); Potassium 4.4 mmol/L (3.5-5.1); Sodium 139 mmol/L (135-145); eGFR > 60.00
[2024-03-02] MEDS: FLAGYL 500 MG 100 IV ×3 (09:18→21:43)
[2024-03-02] MEDS: PROZAC 40 MG PO (09:24)
[2024-03-02] MEDS: PROCARDIA XL (EXTENDED RELEASE) 30 MG PO (09:25)
[2024-03-02] MEDS: PROTONIX 40 MG PO (09:26)
[2024-03-02] MEDS: LOPRESSOR 25 MG PO ×2 (09:27→21:40)
[2024-03-02] MEDS: DESENEX/MITRAZOL/ZEASORB 1 APPLIC TOPICAL ×2 (09:27→21:45)
[2024-03-02] MEDS: NEURONTIN 400 MG PO (09:27)
[2024-03-02] MEDS: FARXIGA 5 MG PO (09:34)
--- NOTE | 2024-03-02 11:46 | PTCARENOTE ---
pt with rectal trumpet in place for loose incontinent stools. pt is a x1 assist with rolling walker to commode. pt retaining urine and unable to pee, bladder scanned for 462ml. straight cathed, tolerated. output 500ml of yellow, odored urine. orders
placed per MD. will continue to monitor for further retention
--- NOTE | 2024-03-02 12:08 | CM ---
Patient seen at bedside.
IA
Dx: Gastroenteritis, UTI
+ norovirus
PMH: htn, morbid obesity, FLORENCIO
Patient lives at [facility] with elevator
PLOF: ambulates with walker
DME: walker, shower chair
Denies HH/rehab
Denies insecurities
Spoke with daughter Velma & updated
Await PT eval
PCP: Samira Patel
Pharmacy: [facility]
PLAN: Await PT eval, continue to follow for discharge planning
[2024-03-02] MEDS: NEURONTIN 300 MG PO ×2 (15:00→21:45)
[2024-03-02] MEDS: CRESTOR 5 MG PO (18:02)
[2024-03-02] MEDS: LOVENOX 40 MG SC (18:03)
[2024-03-02] MEDS: ROCEPHIN 1000 MG IV (21:44)
[2024-03-02] MEDS: STERILE WATER FOR INJECTION 10 ML IV (21:45)
--- NOTE | 2024-03-03 03:34 | PTCARENOTE ---
Covering provider aware patient's bladder scan was 372 and that patient is having pain from distention and requesting straight cath. She advised to go ahead and do straight cath. Straight cath performed with female RN assisting. Output was 425 mls
of essence urine.
[2024-03-03] MEDS: FLAGYL 500 MG 100 IV (05:06)
[2024-03-03] MEDS: NSS 1000 IV (05:06)
[2024-03-03 06:00] VITALS: BMI 36.6
[2024-03-03 06:07] LABS: Hematocrit 36.8 % (37.0-47.0); Hemoglobin 12.1 g/dL (12.0-16.0); Mean Corp Hgb Conc. 32.9 g/dL (33.0-37.0); Mean Corpuscular Hgb 31.4 pg (27.0-31.0); Mean Corpuscular Volume 95.6 fL (81.0-99.0); Mean Platelet Volume 8.8 fL (7.4-10.4); Platelet Count 166 10^3/uL (130-400); Red Blood Cell Count 3.85 10^6/uL (4.20-5.40); Red Cell Dist. Width 14.1 % (11.5-14.5); White Blood Cell Count 4.9 10^3/uL (4.8-10.8)
[2024-03-03 06:25] LABS: Blood Urea Nitrogen 24 mg/dl (7-17); Calcium 8.4 mg/dl (8.4-10.2); Carbon Dioxide 26 mmol/L (22-30); Chloride 102 mmol/L (98-107); Estimated Creatinine Clearance 41 ml/min; Glucose 109 mg/dl (70-99); Phosphorus 3.4 mg/dl (2.5-4.5); Potassium 3.4 mmol/L (3.5-5.1); Sodium 134 mmol/L (135-145); eGFR > 60.00
[2024-03-03 08:00] VITALS: BP 109/47
--- NOTE | 2024-03-03 08:46 | W.PN.HOSP.TC ---
Today's Communication/Plan
-
see bold
Assessment / Plan
Assessment / Plan
89-year-old with history of hypertension, FLORENCIO, morbid obesity, recurrent UTIs who presents with acute symptoms of gastroenteritis including nausea vomiting diarrhea that started after her last dinner yesterday. Found to have enteritis on CT scan.
She hemodynamically stable, chest x-ray shows new infiltrates consistent with aspiration. UA was positive. She is uncomfortable but appears nontoxic.
PLAN:
1. Acute norovirus gastroenteritis
- Symptoms and CT scan c/w acute gastroenteritis versus possible food poisoning. No clear history of sick contacts. HD stable and non-toxic. Abdominal exam benign.
- Continue antiemetics, diet as tolerated
- Hold diuretics, gentle IV fluids, regular diet as tolerated
2. Pneumonia ruled out
-Patient is afebrile, denies cough/shortness of breath
-Chest x-ray negative for acute disease
-Continue to monitor
3. HTN
- Blood pressure soft, continue metoprolol, hold nifedipine
- Hold lasix and aldactone secondary to diarrhea
4. UTI - h/o recurrent uti on macrobid since tuesday with ongoing symptoms and +u/a
-Continue Rocephin D2, follow-up on urine cultures
5. GERD
� Continue PPI
6. Fibromyalgia
� Continue gabapentin
7. Hyperlipidemia
Continue statin
8. Chronic heart failure with a preserved ejection fraction
-Hold Lasix/Aldactone, trend daily weights
-Continue Farxiga for GDMT
9. Obesity due to excess calories
� Affects all aspects of care
10. Subacute urinary retention
-Has been going on for months
� Requiring straight cath 03/02, 03/03
�Continue bladder scan protocol
- May require Leon insertion, consider urology consult
11. Hypokalemia
Replete
DVT PPX - lovenox sq
Code status - DNR
Total time spent to see the patient on the floor, examine the patient, review data and lab results, discuss treatment plan with patient, nursing staff around 51 minutes.
Physical Exam
General: Obese, no acute distress
HEENT: Normocephalic, Atraumatic, EOMI, MMM
Respiratory: Clear to Auscultation bilaterally
Cardiac: Normal S1/S2, Regular Rate and Rhythm
GI: Soft, Nontender, Nondistended, Normal Bowel Sounds
Extremities: No Clubbing, Cyanosis, or Edema
Neuro: Nonfocal/Grossly Intact
Psych: Calm, Cooperative
Derm: No Visible lesions
Anticipated Discharge: 24 - 48 hours
Subjective/Interval History
-
Date of Service: March 02, 2024
Patient reports not feeling well. Continues to have liquid diarrhea and nausea. No vomiting. No abdominal pain. No chest pain, no shortness of breath. No fever.
Objective Data
-
Labs:
Laboratory Results
03/02/24
07:46
WBC 10.0
Hgb 14.3
Hct 43.2
Plt Count 197
Sodium 139
Potassium 4.4
Chloride 101
Carbon Dioxide 26
BUN 26 H
Creatinine 0.9
Glucose 149 H
Calcium 9.0
Vital Signs:
Vital Signs
Temp Pulse Resp BP Pulse Ox
98.1 F 78 16 135/78 98
03/02/24 07:55 03/02/24 09:27 03/02/24 07:55 03/02/24 09:27 03/02/24 12:21
I&O
03/01/24 03/02/24 03/03/24
06:59 06:59 06:59
Output Total 500 / 500
Balance -500 / -500
[2024-03-03] MEDS: DESENEX/MITRAZOL/ZEASORB 1 APPLIC TOPICAL ×2 (09:21→21:15)
[2024-03-03] MEDS: FARXIGA 5 MG PO (09:27)
[2024-03-03] MEDS: PROCARDIA XL (EXTENDED RELEASE) 30 MG PO (09:27)
[2024-03-03] MEDS: PROZAC 40 MG PO (09:27)
[2024-03-03] MEDS: NEURONTIN 300 MG PO ×3 (09:27→21:15)
[2024-03-03] MEDS: PROTONIX 40 MG PO (09:27)
[2024-03-03] MEDS: LOPRESSOR 25 MG PO ×2 (09:28→21:13)
[2024-03-03] MEDS: KCL 40 MEQ PO (09:30)
[2024-03-03] MEDS: TYLENOL 650 MG PO (09:30)
[2024-03-03] MEDS: ZOFRAN 4 MG IV (09:31)
[2024-03-03] MEDS: FLUSH (NSS) 2 FLUSH IV ×2 (09:31→21:19)
[2024-03-03] MEDS: MYCOSTATIN ORAL SUSPENSION 5 ML PO ×3 (13:14→21:15)
[2024-03-03 16:00] VITALS: BP 112/55
[2024-03-03] MEDS: LOVENOX 40 MG SC (17:41)
[2024-03-03] MEDS: CRESTOR 5 MG PO (17:41)
[2024-03-03] MEDS: STERILE WATER FOR INJECTION 10 ML IV (21:16)
[2024-03-03] MEDS: ROCEPHIN 1000 MG IV (21:18)
[2024-03-03 23:09] VITALS: BP 129/59
[2024-03-04] MEDS: NSS 1000 IV (03:55)
[2024-03-04 04:52] LABS: Hematocrit 37.2 % (37.0-47.0); Hemoglobin 12.4 g/dL (12.0-16.0); Mean Corp Hgb Conc. 33.3 g/dL (33.0-37.0); Mean Corpuscular Hgb 31.6 pg (27.0-31.0); Mean Corpuscular Volume 94.9 fL (81.0-99.0); Platelet Count 159 10^3/uL (130-400); Red Blood Cell Count 3.92 10^6/uL (4.20-5.40); Red Cell Dist. Width 13.7 % (11.5-14.5)
[2024-03-04 05:18] LABS: Blood Urea Nitrogen 17 mg/dl (7-17); Calcium 8.3 mg/dl (8.4-10.2); Carbon Dioxide 23 mmol/L (22-30); Chloride 104 mmol/L (98-107); Estimated Creatinine Clearance 53 ml/min; Glucose 101 mg/dl (70-99); Sodium 134 mmol/L (135-145); eGFR > 60.00
[2024-03-04 07:15] VITALS: BP 141/79
--- NOTE | 2024-03-04 08:15 | W.PN.HOSP.TC ---
Today's Communication/Plan
-
see bold
Assessment / Plan
Assessment / Plan
89-year-old with history of hypertension, FLORENCIO, morbid obesity, recurrent UTIs who presents with acute symptoms of gastroenteritis including nausea vomiting diarrhea that started after her last dinner yesterday. Found to have enteritis on CT scan.
She hemodynamically stable, chest x-ray shows new infiltrates consistent with aspiration. UA was positive. She is uncomfortable but appears nontoxic.
PLAN:
1. Acute norovirus gastroenteritis
- Symptoms and CT scan c/w acute gastroenteritis versus possible food poisoning. No clear history of sick contacts. HD stable and non-toxic. Abdominal exam benign.
- Continue antiemetics, diet as tolerated
- Hold diuretics, gentle IV fluids, regular diet as tolerated
2. Pneumonia ruled out
-Patient is afebrile, denies cough/shortness of breath
-Chest x-ray negative for acute disease
-Continue to monitor
3. HTN
- Blood pressure soft, continue metoprolol, hold nifedipine
- Hold lasix and aldactone secondary to diarrhea
4. UTI - h/o recurrent uti on macrobid since tuesday with ongoing symptoms and +u/a
-Continue Rocephin D3, follow-up on urine cultures
5. GERD
� Continue PPI
6. Fibromyalgia
� Continue gabapentin
7. Hyperlipidemia
Continue statin
8. Chronic heart failure with a preserved ejection fraction
-Hold Lasix/Aldactone, trend daily weights
-Continue Farxiga for GDMT
9. Obesity due to excess calories
� Affects all aspects of care
10. Subacute urinary retention
-Has been going on for months
� Requiring straight cath 03/02, 03/03
� Leon inserted 03/03, maintain for 3 days
- Follow-up with urology in the office
11. Hypokalemia
Repleted and resolved
12. Oral thrush
Continue nystatin day 2 out of 14
DVT PPX - lovenox sq
Code status - DNR
Total time spent to see the patient on the floor, examine the patient, review data and lab results, discuss treatment plan with patient, nursing staff around 50 minutes.
Physical Exam
General: Obese, no acute distress
HEENT: Normocephalic, Atraumatic, EOMI, MMM
Respiratory: Clear to Auscultation bilaterally
Cardiac: Normal S1/S2, Regular Rate and Rhythm
GI: Soft, Nontender, Nondistended, Normal Bowel Sounds
Extremities: No Clubbing, Cyanosis, or Edema
Neuro: Nonfocal/Grossly Intact
Anticipated Discharge: 24 - 48 hours
Subjective/Interval History
-
Date of Service: March 03, 2024
Patient reports feeling slightly better today. Her weakness has improved. Abdominal pain resolved. Continues to be nauseous, no vomiting. Her appetite is improved. No fever. No chest pain, no shortness of breath.
Patient continued to have urinary retention, Leon inserted 03/03 at 3 PM.
Objective Data
-
Labs:
Laboratory Results
03/03/24
05:47
WBC 4.9
Hgb 12.1
Hct 36.8 L
Plt Count 166
Sodium 134 L
Potassium 3.4 L
Chloride 102
Carbon Dioxide 26
BUN 24 H
Creatinine 0.9
Glucose 109 H
Calcium 8.4
Vital Signs:
Vital Signs
Temp Pulse Resp BP Pulse Ox
97.7 F 62 18 109/47 95
03/03/24 08:00 03/03/24 08:00 03/03/24 08:00 03/03/24 08:00 03/03/24 08:00
I&O
03/02/24 03/03/24 03/04/24
06:59 06:59 06:59
Intake Total 2540 / 2540
Output Total 2074
Balance 465 / 465
[2024-03-04] MEDS: TYLENOL 650 MG PO (08:48)
[2024-03-04] MEDS: MYCOSTATIN ORAL SUSPENSION 5 ML PO ×4 (08:48→21:59)
[2024-03-04] MEDS: LOPRESSOR 25 MG PO ×2 (08:48→21:57)
[2024-03-04] MEDS: NEURONTIN 300 MG PO ×3 (08:49→21:59)
[2024-03-04] MEDS: PROZAC 40 MG PO (08:49)
[2024-03-04] MEDS: PROTONIX 40 MG PO (08:49)
[2024-03-04] MEDS: FARXIGA 5 MG PO (08:49)
--- NOTE | 2024-03-04 11:28 | CM ---
Updated clinicals sent to [facility], PT recommending SNF vs home with PT as of 03/03. CM will continue to follow for discharge planning needs.
Plan; SNF vs home with VN
[2024-03-04] MEDS: DESENEX/MITRAZOL/ZEASORB 1 APPLIC TOPICAL ×2 (13:10→21:58)
[2024-03-04 15:36] VITALS: BP 154/66
[2024-03-04] MEDS: LOVENOX 40 MG SC (17:37)
[2024-03-04] MEDS: CRESTOR 5 MG PO (17:39)
[2024-03-04] MEDS: ZOFRAN 4 MG IV (21:14)
[2024-03-04] MEDS: ROCEPHIN 1000 MG IV (22:00)
[2024-03-04] MEDS: STERILE WATER FOR INJECTION 10 ML IV (22:00)
[2024-03-04 23:12] VITALS: BP 142/59
[2024-03-05 03:31] VITALS: BP 145/67
[2024-03-05 06:00] VITALS: BMI 37.1
[2024-03-05 07:24] VITALS: BP 132/58
--- NOTE | 2024-03-05 08:34 | W.PN.HOSP.TC ---
Addendum entered and electronically signed by Esperanza Matos MD 03/05/24 13:02:
urine culture shows ESBL
patient presented with symptoms - dysuria and retention, now has sosa in and states doesn't feel anything
will start IV Meropenem and consult ID
Original Note:
Today's Communication/Plan
-
continue supportive care with on-going symptoms
awaiting AM labs, likely resume diuretics later today or tomorrow
Assessment / Plan
Assessment / Plan
89-year-old with history of hypertension, FLORENCIO, morbid obesity, recurrent UTIs who presents with acute symptoms of gastroenteritis including nausea vomiting diarrhea that started after her last dinner yesterday. Found to have enteritis on CT scan.
She hemodynamically stable, chest x-ray shows new infiltrates consistent with aspiration. UA was positive. She is uncomfortable but appears nontoxic.
PLAN:
1. Acute norovirus gastroenteritis
- Symptoms and CT scan c/w acute gastroenteritis versus possible food poisoning. No clear history of sick contacts. HD stable and non-toxic. Abdominal exam benign.
- Continue antiemetics, diet as tolerated
- Hold diuretics, diet as tolerated
2. Pneumonia ruled out
-Patient is afebrile, denies cough/shortness of breath
-Chest x-ray negative for acute disease
-Continue to monitor
3. HTN
- Blood pressure soft, continue metoprolol, hold nifedipine
- Hold lasix and aldactone secondary to diarrhea - weight up this morning, likely resume later today or tomorrow based on labs
4. UTI - h/o recurrent uti on macrobid since tuesday with ongoing symptoms and +u/a
-Continue Rocephin D4, follow-up on urine cultures
5. GERD
� Continue PPI
6. Fibromyalgia
� Continue gabapentin
7. Hyperlipidemia
Continue statin
8. Chronic heart failure with a preserved ejection fraction
-Hold Lasix/Aldactone, trend daily weights
-Continue Farxiga for GDMT
9. Obesity due to excess calories
� Affects all aspects of care
10. Subacute urinary retention
-Has been going on for months
� Requiring straight cath 03/02, 03/03
� Sosa inserted 03/03, maintain for 3 days
- Follow-up with urology in the office
11. Hypokalemia
Repleted and resolved
12. Oral thrush
Continue nystatin day 2 out of 14
DVT PPX - lovenox sq
Code status - DNR
Total time spent to see the patient on the floor, examine the patient, review data and lab results, discuss treatment plan with patient, nursing staff around 50 minutes.
Physical Exam
General: Obese, no acute distress
HEENT: Normocephalic, Atraumatic, EOMI, MMM
Respiratory: Clear to Auscultation bilaterally
Cardiac: Normal S1/S2, Regular Rate and Rhythm
GI: Soft, Nontender, Nondistended, Normal Bowel Sounds
Extremities: No Clubbing, Cyanosis, or Edema
Neuro: Nonfocal/Grossly Intact
Anticipated Discharge: 24 - 48 hours
Subjective/Interval History
-
Date of Service: March 05, 2024
continuing to have diarrhea
about to eat breakfast
Objective Data
-
Labs:
Laboratory Results
03/05/24
07:12
WBC Pending
Hgb Pending
Hct Pending
Plt Count Pending
Sodium Pending
Potassium Pending
Chloride Pending
Carbon Dioxide Pending
BUN Pending
Creatinine Pending
Glucose Pending
Calcium Pending
Vital Signs:
Vital Signs
Temp Pulse Resp BP Pulse Ox
97.4 F 49 17 132/58 95
03/05/24 07:24 03/05/24 07:24 03/05/24 07:24 03/05/24 07:24 03/05/24 07:24
I&O
03/04/24 03/05/24 03/06/24
06:59 06:59 06:59
Intake Total 1240 / 1240 740 / 740 450 / 450
Output Total 1225 / 1225 1450 / 1450 350 / 350
Balance 15 / 15 -710 / -710 100 / 100
Review of Systems
-
History Source: Patient
All other systems: Reviewed and negative
Physical Exam
-
General: Negative Respiratory Distress
HEENT: Negative Oxygen
Respiratory: Clear to Auscultation
Cardiac: Regular Rhythm and S1/S2; Negative Murmur or Rub
GI: Soft, Nontender and Nondistended
Musculoskeletal: No Edema
Neuro: Awake, Alert, Oriented, No Motor Deficits and Nonfocal/Grossly Intact
Psych: Calm
Data Reviewed
-
Diagnostic Radiology: Report Reviewed by me
Labs: Labs Reviewed by me
[2024-03-05 08:39] LABS: Hematocrit 38.6 % (37.0-47.0); Mean Corp Hgb Conc. 33.7 g/dL (33.0-37.0); Mean Corpuscular Volume 95.1 fL (81.0-99.0); Mean Platelet Volume 9.4 fL (7.4-10.4); Platelet Count 166 10^3/uL (130-400); Red Blood Cell Count 4.06 10^6/uL (4.20-5.40); Red Cell Dist. Width 13.5 % (11.5-14.5); White Blood Cell Count 5.4 10^3/uL (4.8-10.8)
[2024-03-05] MEDS: MYCOSTATIN ORAL SUSPENSION 5 ML PO ×4 (09:24→21:29)
[2024-03-05] MEDS: LOPRESSOR 25 MG PO ×2 (09:25→21:29)
[2024-03-05] MEDS: FARXIGA 5 MG PO (09:25)
[2024-03-05] MEDS: PROTONIX 40 MG PO (09:25)
[2024-03-05] MEDS: PROZAC 40 MG PO (09:27)
[2024-03-05] MEDS: NEURONTIN 300 MG PO ×3 (09:27→21:29)
[2024-03-05] MEDS: DESENEX/MITRAZOL/ZEASORB 1 APPLIC TOPICAL ×2 (09:28→21:35)
[2024-03-05 10:13] LABS: Blood Urea Nitrogen 12 mg/dl (7-17); Calcium 8.4 mg/dl (8.4-10.2); Carbon Dioxide 24 mmol/L (22-30); Chloride 103 mmol/L (98-107); Estimated Creatinine Clearance 46 ml/min; Glucose 84 mg/dl (70-99); Potassium 3.9 mmol/L (3.5-5.1); Sodium 135 mmol/L (135-145); eGFR > 60.00
[2024-03-05 12:32] VITALS: PULSE 50; O2SAT 97
[2024-03-05] MEDS: VISBIOME 1 CAP PO (14:04)
[2024-03-05] MEDS: MERREM 500 MG IV ×2 (14:05→21:30)
[2024-03-05] MEDS: STERILE WATER FOR INJECTION 10 ML IV ×2 (14:06→21:30)
--- NOTE | 2024-03-05 14:38 | CON.ID ---
Consultation
-
Date/Time Consultation Requested: 03/05/2024 1300
Date/Time Consultation Performed: 03/05/2024 1420
Requesting Provider: Dr. Matos
Performing Provider: Dr. Carmen
Reason for Consultation: Acute norovirus; complicated urinary tract infection
Chief Complaint / Past History
History of Present Illness
Susannah Fierro is an 89-year-old female being evaluated at the request of Dr. Matos in regards to acute norovirus infection and recovery of ESBL E. coli from the urine. History is obtained from chart review, along with patient interview.
The patient resides at [facility] and she presents to the emergency room on 03/01 after the acute onset of nausea, vomiting and diarrhea. She admits that the GI bug is 'rampant' at the facility right now. She reports she does not go
out of her apartment much, but does go to get some food.
She notes that she additionally has had some issues with urination since starting Farxiga approximately 3 to 4 months ago. She notes that it is often somewhat difficult to start her stream. She reports occasional dysuria, and she notes that she
recently was on Macrobid for a reported UTI.
At this time she feels generally weak and lethargic. She notes her nausea has improved, although she is still having significant diarrhea. Since admission, a Leon catheter has been placed for retention.
Past History
Additional Past Medical History:
HTN
Morbid obesity
FLORENCIO
Recurrent urinary tract infection
GERD
Fibromyalgia
Dyslipidemia
CHF
Additional Past Surgical History:
Bowel resection
Cholecystectomy
FREYA
Allergy History:
Penicillins Allergy (Verified 03/01/24 23:19)
Rash
Sulfa (Sulfonamide Antibiotics) Allergy (Verified 03/01/24 23:19)
Rash
Medications Reviewed: Yes
Current Antibiotics:
Meropenem
Social History
Tobacco: Non-Smoker
Alcohol: Occasional
Drug: None
Personal:
Living: Alone
Employment: Retired
Family History
Family History: Not Pertinent
Review of Systems
Vital Signs
Temp Pulse Resp BP Pulse Ox
97.4 F 49 17 132/58 95
03/05/24 07:24 03/05/24 07:24 03/05/24 07:24 03/05/24 07:24 03/05/24 07:24
Physical Exam
Physical Exam
Constitutional: Comfortable, Acutely Ill, Chronically Ill, Non-toxic and Obese
Eyes: No Conjunctival Hemorrhage and Sclera Anicteric
Oral: No Thrush and No Ulcers
Cardiovascular: Regular Rate and S1/S2; Negative S3/S4
Pulmonary: Clear; Negative Wheezes, Rales or Rhonchi
Gastrointestinal: Soft, Non Tender and Non Distended
Neurological: Awake and Alert
Psychological: Calm
Lab / Diagnostic Study Results
03/05/24 07:12
03/05/24 07:12
Abs Immat Gran (auto) 0.1 10^3/uL (0-0.05) H 03/01/24 23:22
Absolute Neuts (auto) 11.0 10^3/uL (1.4-6.5) H 03/01/24 23:22
Absolute Lymphs (auto) 1.2 10^3/uL (1.2-3.4) 03/01/24 23:22
Absolute Monos (auto) 0.6 10^3/uL (0.1-0.6) 03/01/24 23:22
Absolute Basos (auto) 0.0 10^3/uL (0-0.2) 03/01/24 23:22
Immature Gran % 0.5 % (0-0.5) 03/01/24 23:22
Neutrophils % 85.1 % (42.2-75.2) H 03/01/24 23:22
Lymphocytes % 8.9 % (20.5-51.1) L 03/01/24 23:22
Monocytes % 4.4 % (1.7-9.3) 03/01/24 23:22
Eosinophils % 0.9 % (0-6) 03/01/24 23:22
Basophils % 0.2 % (0-2) 03/01/24 23:22
Ur Squamous Epith Cells 0-2 /LPF (Few) 03/02/24 00:27
Microbiology Results
Micro:
03/02/24 Unknown Urine Culture - Final
Urine Escherichia coli - ESBL
03/05/24 09:20 MRSA Screen - Pending
Nose
03/02/24 06:30 - Final
Feces/Stool Positive for Norovirus GII
Imaging:
03/02/2024 CXR (2 view): Mild bibasilar atelectasis. No convincing acute focal infiltrates noted. Please see full dictation for additional detail.
03/02/2024 CT abdomen/pelvis: Liver, spleen, right kidney, adrenal glands and pancreas are all within normal limits. Punctate nonobstructing left renal calculi present. No hydronephrosis noted. Gallbladder is absent. Slightly prominent
fluid-filled small bowel and right colon noted. Overall suspect mild enteritis.
Assessment / Plan
Acute norovirus
ESBL E. coli recovered from urine
Urinary retention requiring Leon catheter placement
HTN
Morbid obesity
FLORENCIO
Recurrent urinary tract infection
GERD
Fibromyalgia
Dyslipidemia
CHF
Recommendations:
Continue with supportive measures for underlying norovirus. Would expect GI symptoms to resolve in 12 to 48 hours. Patient may have residual generalized fatigue for several days thereafter.
Continue with meropenem for treatment of recovered ESBL E. coli. Would complete a 10 to 14-day course of antibiotic therapy.
At discharge, transition to once daily ertapenem to complete course.
--- NOTE | 2024-03-05 15:32 | CM ---
Spoke with daughter Velma
+norovirus, urine ESBL, IV Meropenem started
Patient is a resident of [facility]
PT rec SNF - Referral is in [facility] for [facility]
Will need to obtain ins auth
PLAN: [facility], pending bed availability, CM will need to obtain ins auth prior
[2024-03-05 15:38] VITALS: BP 121/65
[2024-03-05] MEDS: LOVENOX 40 MG SC (18:39)
[2024-03-05] MEDS: CRESTOR 5 MG PO (18:42)
[2024-03-05] MEDS: STERILE WATER FOR INJECTION IV (21:30)
[2024-03-05] MEDS: ZOFRAN 4 MG IV (21:44)
[2024-03-05 23:08] VITALS: BP 131/54
[2024-03-06] MEDS: MERREM 500 MG IV ×2 (05:13→12:58)
[2024-03-06] MEDS: STERILE WATER FOR INJECTION 10 ML IV ×2 (05:14→12:56)
[2024-03-06] MEDS: TYLENOL 650 MG PO ×2 (05:14→20:09)
[2024-03-06 06:00] VITALS: BMI 37.2
[2024-03-06 07:15] VITALS: BP 144/59
[2024-03-06 08:05] LABS: Blood Urea Nitrogen 10 mg/dl (7-17); Calcium 8.4 mg/dl (8.4-10.2); Carbon Dioxide 27 mmol/L (22-30); Chloride 101 mmol/L (98-107); Estimated Creatinine Clearance 47 ml/min; Glucose 94 mg/dl (70-99); Magnesium 1.9 mg/dl (1.6-2.3); Potassium 3.8 mmol/L (3.5-5.1); Sodium 132 mmol/L (135-145); eGFR > 60.00
--- NOTE | 2024-03-06 08:22 | W.PN.HOSP.TC ---
Today's Communication/Plan
-
supportive care for norovirus
IV Meropenem
PT/OT - eventual SNF
appreciate ID
Assessment / Plan
Assessment / Plan
89-year-old with history of hypertension, FLORENCIO, morbid obesity, recurrent UTIs who presents with acute symptoms of gastroenteritis including nausea vomiting diarrhea that started after her last dinner yesterday. Found to have enteritis on CT scan.
She hemodynamically stable, chest x-ray shows new infiltrates consistent with aspiration. UA was positive. She is uncomfortable but appears nontoxic.
PLAN:
1. Acute norovirus gastroenteritis
- Continue antiemetics, diet as tolerated
- Hold diuretics another day
2. Pneumonia ruled out
-Patient is afebrile, denies cough/shortness of breath
-Chest x-ray negative for acute disease
3. HTN
- Blood pressure soft, continue metoprolol, hold nifedipine
- Hold lasix and aldactone secondary to diarrhea - likely resume later today or tomorrow
4. UTI - h/o recurrent uti on macrobid since tuesday with ongoing symptoms and +u/a
Urinary Retention
ESBL UTI
-continue IV Meropenem for 10-14 days
-appreciate ID
5. GERD
� Continue PPI
6. Fibromyalgia
� Continue gabapentin
7. Hyperlipidemia
Continue statin
8. Chronic heart failure with a preserved ejection fraction
-Hold Lasix/Aldactone, trend daily weights
-Continue Farxiga for GDMT
9. Obesity due to excess calories
� Affects all aspects of care
11. Hypokalemia
Repleted and resolved
12. Oral thrush
Continue nystatin day 2 out of 14
DVT PPX - lovenox sq
Code status - DNR
Total time spent to see the patient on the floor, examine the patient, review data and lab results, discuss treatment plan with patient, nursing staff around 50 minutes.
Anticipated Discharge: 24 - 48 hours
Subjective/Interval History
-
Date of Service: March 06, 2024
had a tough night with chills and back pain that is now resolved
back pain was lower back and positional
Objective Data
-
Labs:
Laboratory Results
03/06/24
07:24
Sodium 132 L
Potassium 3.8
Chloride 101
Carbon Dioxide 27
BUN 10
Creatinine 0.8
Glucose 94
Calcium 8.4
Vital Signs:
Vital Signs
Temp Pulse Resp BP Pulse Ox
97.6 F 56 16 144/59 97
03/06/24 07:15 03/06/24 07:15 03/06/24 07:15 03/06/24 07:15 03/06/24 07:15
I&O
03/05/24 03/06/24 03/07/24
06:59 06:59 06:59
Intake Total 740 / 740 1930 / 1930
Output Total 1450 / 1450 1825 / 1825
Balance -710 / -710 105 / 105
Review of Systems
-
History Source: Patient
All other systems: Reviewed and negative
Physical Exam
-
General: Negative Respiratory Distress
HEENT: Oxygen
Respiratory: Clear to Auscultation
Cardiac: Regular Rhythm and S1/S2; Negative Murmur or Rub
GI: Soft, Nontender and Nondistended
Musculoskeletal: No Edema
Neuro: Awake, Alert, Oriented, No Motor Deficits and Nonfocal/Grossly Intact
Psych: Calm
Data Reviewed
-
Diagnostic Radiology: Report Reviewed by me
Labs: Labs Reviewed by me
[2024-03-06] MEDS: MYCOSTATIN ORAL SUSPENSION 5 ML PO ×4 (08:45→22:22)
[2024-03-06] MEDS: VISBIOME 1 CAP PO (08:45)
[2024-03-06] MEDS: FARXIGA 5 MG PO (08:45)
[2024-03-06] MEDS: NEURONTIN 300 MG PO ×3 (08:45→22:22)
[2024-03-06] MEDS: PROZAC 40 MG PO (08:45)
[2024-03-06] MEDS: LOPRESSOR 25 MG PO ×2 (08:46→20:10)
[2024-03-06] MEDS: DESENEX/MITRAZOL/ZEASORB 1 APPLIC TOPICAL ×2 (08:46→20:11)
[2024-03-06] MEDS: PROTONIX 40 MG PO (08:46)
--- NOTE | 2024-03-06 13:15 | W.PN.ID1 ---
Date of Service
Date of Service: March 06, 2024
Today's Communication
Continue antibiotics. Transition to ertapenem for ease of administration.
Assessment / Plan
Acute norovirus infection
ESBL E. coli recovered from urine
Urinary retention requiring Leon catheter placement
HTN
Morbid obesity
FLORENCIO
Recurrent urinary tract infection
GERD
Fibromyalgia
Dyslipidemia
CHF
Recommendations:
Continue with supportive measures for underlying norovirus. Would expect GI symptoms to resolve in 12 to 48 hours. Patient may have residual generalized fatigue for several days thereafter.
Continue antibiotics in the treatment of recovered ESBL E. coli. Transition meropenem to ertapenem.
Would complete a 10 to 14-day course of antibiotic therapy.
����������������������������������������������������������
Chief Complaint
-: Other (Norovirus; complicated urinary tract infection)
Subjective / Review of Systems
Patient seen and examined. Reports feeling only slightly better than yesterday, but notes some improvement.
Review of Systems: No Fever
Vital Signs / Physical Exam
Vital Signs
Vital Signs
Temp Pulse Resp BP Pulse Ox
97.6 F 62 16 144/59 97
03/06/24 07:15 03/06/24 08:46 03/06/24 07:15 03/06/24 07:15 03/06/24 07:15
Physical Exam
Constitutional: No Acute Distress, Comfortable, Acutely Ill, Chronically Ill and Non-toxic
Eyes: Sclera Anicteric
Pulmonary: Non Labored
Gastrointestinal: Non Distended
Neurological: Awake and Alert
Psychological: Calm
Objective Data
Lab Data
Lab Results
03/05/24 07:12
03/06/24 07:24
Estimated Creat Clear 47 ml/min 03/06/24 07:24
Total Bilirubin 1.0 mg/dl (0.2-1.3) 03/01/24 23:22
AST 33 U/L (14-36) 03/01/24 23:22
ALT 29 U/L (0-35) 03/01/24 23:22
Alkaline Phosphatase 68 U/L (38-126) 03/01/24 23:22
Most recent labs reviewed.
Micro Results:
03/02/24 Unknown Urine Culture - Final
Urine Escherichia coli - ESBL
03/05/24 09:20 MRSA Screen - Pending
Nose
03/02/24 06:30 - Final
Feces/Stool Positive for Norovirus GII
Imaging:
03/02/2024 CXR (2 view): Mild bibasilar atelectasis. No convincing acute focal infiltrates noted. Please see full dictation for additional detail.
03/02/2024 CT abdomen/pelvis: Liver, spleen, right kidney, adrenal glands and pancreas are all within normal limits. Punctate nonobstructing left renal calculi present. No hydronephrosis noted. Gallbladder is absent. Slightly prominent
fluid-filled small bowel and right colon noted. Overall suspect mild enteritis.
[2024-03-06] MEDS: INVANZ 60 MG IV (14:57)
[2024-03-06 15:10] VITALS: BP 134/57
--- NOTE | 2024-03-06 16:48 | CM ---
Declined PT today
PT had rec SNF
[facility] accepted, will need to obtain ins. auth
PLAN: [facility], pending bed availability - will need insurance auth
[2024-03-06] MEDS: LOVENOX 40 MG SC (17:07)
[2024-03-06] MEDS: CRESTOR 5 MG PO (17:08)
[2024-03-06 20:14] VITALS: BP 139/57
[2024-03-06 23:16] VITALS: BP 133/54
[2024-03-07] MEDS: STERILE WATER FOR INJECTION IV (00:32)
[2024-03-07 06:25] LABS: Blood Urea Nitrogen 7 mg/dl (7-17); Calcium 8.6 mg/dl (8.4-10.2); Carbon Dioxide 28 mmol/L (22-30); Chloride 99 mmol/L (98-107); Estimated Creatinine Clearance 47 ml/min; Glucose 101 mg/dl (70-99); Magnesium 2.1 mg/dl (1.6-2.3); Potassium 3.8 mmol/L (3.5-5.1); Sodium 134 mmol/L (135-145); eGFR > 60.00
[2024-03-07 06:30] VITALS: BMI 37.6
[2024-03-07 07:15] VITALS: BP 157/56
--- NOTE | 2024-03-07 09:30 | W.PN.HOSP.TC ---
Today's Communication/Plan
-
see plan
patient will likely DC to SNF in 1-2 days on IV abx
Assessment / Plan
Assessment / Plan
89-year-old with history of hypertension, FLORENCIO, morbid obesity, recurrent UTIs who presents with acute symptoms of gastroenteritis including nausea vomiting diarrhea that started after her last dinner yesterday. Found to have enteritis on CT scan.
She hemodynamically stable, chest x-ray shows new infiltrates consistent with aspiration. UA was positive. She is uncomfortable but appears nontoxic.
PLAN:
1. Acute norovirus gastroenteritis
- Continue antiemetics, diet as tolerated
- stool frequency decreasing
2. Pneumonia ruled out
-Patient is afebrile, denies cough/shortness of breath
-Chest x-ray negative for acute disease
3. HTN
-Continue metoprolol, resume nifedipine
4. UTI - h/o recurrent uti on macrobid since tuesday with ongoing symptoms and +u/a
Urinary Retention
ESBL UTI
-continue IV Meropenem for 10-14 days - day 3
-appreciate ID
5. GERD
� Continue PPI
6. Fibromyalgia
� Continue gabapentin
7. Hyperlipidemia
Continue statin
8. Chronic heart failure with a preserved ejection fraction
-Resume Lasix/Aldactone, trend daily weights
-Continue Farxiga for GDMT
9. Obesity due to excess calories
� Affects all aspects of care
11. Hypokalemia
Repleted and resolved
12. Oral thrush
Continue nystatin day 5 out of 14
DVT PPX - lovenox sq
Code status - DNR
Total time spent to see the patient on the floor, examine the patient, review data and lab results, discuss treatment plan with patient, nursing staff around 50 minutes.
Anticipated Discharge: 24 - 48 hours
Subjective/Interval History
-
Date of Service: March 07, 2024
less loose stools
feels fatigued
Objective Data
-
Labs:
Laboratory Results
03/07/24
04:32
Sodium 134 L
Potassium 3.8
Chloride 99
Carbon Dioxide 28
BUN 7
Creatinine 0.8
Glucose 101 H
Calcium 8.6
Vital Signs:
Vital Signs
Temp Pulse Resp BP Pulse Ox
98.0 F 54 16 157/56 96
03/07/24 07:15 03/07/24 07:15 03/07/24 07:15 03/07/24 07:15 03/07/24 07:15
I&O
03/06/24 03/07/24 03/08/24
06:59 06:59 06:59
Intake Total 1930 / 1930 900 / 900
Output Total 1825 / 1825 2270 / 2270
Balance 105 / 105 -1370 / -1370
Review of Systems
-
History Source: Patient
All other systems: Reviewed and negative
Physical Exam
-
General: Negative Respiratory Distress
HEENT: Oxygen
Respiratory: Clear to Auscultation
Cardiac: Regular Rhythm and S1/S2; Negative Murmur or Rub
GI: Soft, Nontender and Nondistended
Musculoskeletal: No Edema
Neuro: Awake, Alert, Oriented, No Motor Deficits and Nonfocal/Grossly Intact
Psych: Calm
Data Reviewed
-
Diagnostic Radiology: Report Reviewed by me
Labs: Labs Reviewed by me
[2024-03-07] MEDS: DESENEX/MITRAZOL/ZEASORB 1 APPLIC TOPICAL ×2 (09:32→21:12)
[2024-03-07] MEDS: VISBIOME 1 CAP PO (09:32)
[2024-03-07] MEDS: PROTONIX 40 MG PO (09:32)
[2024-03-07] MEDS: PROZAC 40 MG PO (09:32)
[2024-03-07] MEDS: MYCOSTATIN ORAL SUSPENSION 5 ML PO ×4 (09:32→21:12)
[2024-03-07] MEDS: LOPRESSOR 25 MG PO ×2 (09:32→21:11)
[2024-03-07] MEDS: FARXIGA 5 MG PO (09:33)
[2024-03-07] MEDS: NEURONTIN 300 MG PO ×3 (09:33→21:12)
--- NOTE | 2024-03-07 10:25 | PTCARENOTE ---
Addendum entered by Sydnee Deluna RN 03/07/24 18:34:
rectal trumpet removed at bedside. pt reporting intermittent but persistent rectal spasms. MD made aware. will continue to monitor. pt offered option of sitz bath per MD recommendation. pt declined.
Original Note:
pt aaox3 and ANIAK for this nurse. pt is oob x1 w/ RW. rectal trumpet with minimal output overnight and sosa cath in place. pt educated on removal of trumpet as long as stools remain to be minimal. pt restarted on her lasix per MD today. goal to wean
of O2 today as well.
[2024-03-07] MEDS: ALDACTONE 25 MG PO (11:25)
[2024-03-07] MEDS: LASIX 40 MG PO (11:25)
[2024-03-07] MEDS: INVANZ 60 MG IV (13:44)
[2024-03-07 15:05] VITALS: BP 146/59
[2024-03-07] MEDS: LOVENOX 40 MG SC (17:52)
[2024-03-07] MEDS: CRESTOR 5 MG PO (17:52)
[2024-03-07] MEDS: TYLENOL 650 MG PO (21:16)
[2024-03-07 23:17] VITALS: BP 133/58
[2024-03-08 05:44] VITALS: BMI 36.7
[2024-03-08 07:27] LABS: Calcium 8.7 mg/dl (8.4-10.2); Carbon Dioxide 30 mmol/L (22-30); Chloride 97 mmol/L (98-107); Estimated Creatinine Clearance 46 ml/min; Glucose 107 mg/dl (70-99); Potassium 3.6 mmol/L (3.5-5.1); Sodium 134 mmol/L (135-145); eGFR > 60.00
[2024-03-08 07:37] VITALS: BP 146/69
[2024-03-08 07:37] LABS: Blood Urea Nitrogen 10 mg/dl (7-17)
--- NOTE | 2024-03-08 08:04 | W.PN.HOSP.TC ---
Today's Communication/Plan
-
dispo planning for SNF with IV antibiotics
Assessment / Plan
Assessment / Plan
89-year-old with history of hypertension, FLORENCIO, morbid obesity, recurrent UTIs who presents with acute symptoms of gastroenteritis including nausea vomiting diarrhea that started after her last dinner yesterday. Found to have enteritis on CT scan.
She hemodynamically stable, chest x-ray shows new infiltrates consistent with aspiration. UA was positive. She is uncomfortable but appears nontoxic.
PLAN:
1. Acute norovirus gastroenteritis
- Continue antiemetics, diet as tolerated
- stool frequency decreasing - patient much improved; rectal trumpet out
-she reports rectal spasms- sitz bath recommended, she refuses
2. Pneumonia ruled out
-Patient is afebrile, denies cough/shortness of breath
-Chest x-ray negative for acute disease
3. HTN
-Continue metoprolol, resume nifedipine
4. UTI - h/o recurrent uti on macrobid since tuesday with ongoing symptoms and +u/a
Urinary Retention
ESBL UTI
-continue IV Meropenem for 10-14 days - day 4 --> will need to place PICC for IV abx at SNF
-appreciate ID
5. GERD
� Continue PPI
6. Fibromyalgia
� Continue gabapentin
7. Hyperlipidemia
Continue statin
8. Chronic heart failure with a preserved ejection fraction
-Resume Lasix/Aldactone, trend daily weights
-Continue Farxiga for GDMT
9. Obesity due to excess calories
� Affects all aspects of care
11. Hypokalemia
Repleted and resolved
12. Oral thrush
Continue nystatin day 5 out of 14
DVT PPX - lovenox sq
Code status - DNR
Total time spent to see the patient on the floor, examine the patient, review data and lab results, discuss treatment plan with patient, nursing staff around 50 minutes.
Anticipated Discharge: Within 24 hours
Subjective/Interval History
-
Date of Service: March 08, 2024
feeling okay
wants to get out of bed
Objective Data
-
Labs:
Laboratory Results
03/08/24
06:35
Sodium 134 L
Potassium 3.6
Chloride 97 L
Carbon Dioxide 30
BUN 10
Creatinine 0.8
Glucose 107 H
Calcium 8.7
Vital Signs:
Vital Signs
Temp Pulse Resp BP Pulse Ox
98.7 F 55 18 146/69 92
03/08/24 07:37 03/08/24 07:37 03/08/24 07:37 03/08/24 07:37 03/08/24 07:37
I&O
03/07/24 03/08/24 03/09/24
06:59 06:59 06:59
Intake Total 900 / 900 480 / 480
Output Total 2270 / 2270 750 / 750
Balance -1370 / -1370 -270 / -270
Review of Systems
-
History Source: Patient
All other systems: Reviewed and negative
Physical Exam
-
General: Negative Respiratory Distress
HEENT: Oxygen
Respiratory: Clear to Auscultation
Cardiac: Regular Rhythm and S1/S2; Negative Murmur or Rub
GI: Soft, Nontender and Nondistended
Musculoskeletal: No Edema
Neuro: Awake, Alert, Oriented, No Motor Deficits and Nonfocal/Grossly Intact
Psych: Calm
Data Reviewed
-
Diagnostic Radiology: Report Reviewed by me
Labs: Labs Reviewed by me
[2024-03-08] MEDS: MYCOSTATIN ORAL SUSPENSION 5 ML PO ×4 (09:07→21:49)
[2024-03-08] MEDS: PROZAC 40 MG PO (09:07)
[2024-03-08] MEDS: PROCARDIA XL (EXTENDED RELEASE) 30 MG PO (09:07)
[2024-03-08] MEDS: VISBIOME 1 CAP PO (09:07)
[2024-03-08] MEDS: LOPRESSOR 25 MG PO ×2 (09:07→20:39)
[2024-03-08] MEDS: LASIX 40 MG PO (09:07)
[2024-03-08] MEDS: ALDACTONE 25 MG PO (09:08)
[2024-03-08] MEDS: FARXIGA 5 MG PO (09:08)
[2024-03-08] MEDS: PROTONIX 40 MG PO (09:08)
[2024-03-08] MEDS: DESENEX/MITRAZOL/ZEASORB 1 APPLIC TOPICAL ×2 (09:08→20:43)
[2024-03-08] MEDS: NEURONTIN 300 MG PO ×3 (09:08→21:49)
--- NOTE | 2024-03-08 10:03 | VATNOTE ---
New order for PICC line for 10-14 days ertapenem. Spoke with hospitalist and ID and both OK with [facility] for discharge. Reaching out to case management to check with SNF to see if they will accept [facility] for antibiotic administration, awaiting
response.
--- NOTE | 2024-03-08 10:09 | CM ---
Addendum entered by Jimena Amador 03/08/24 14:51:
[employer] Authorization approval certification #: [id number] (through [employer])
start date 03/09/24 --- end date 03/15/24
Fax updates [phone]
Information given to Abby hill at [facility]
transportation forms on chart
Addendum entered by Jimena Amador 03/08/24 13:59:
Spoke with Briana from [facility] unable to accept patient as they have no private rooms.
[facility] will accept patient - Spoke with Abby hill [phone] ---Script faxed to Abby at [phone]
Need to fax PICC info once placed today
Called daughter Velma & updated
CM to request for auth from [employer]
PLAN: [facility] SNF, ins auth requested
Report #: [id number]
Fax #: [phone]
Original Note:
Patient for PICC for IV antibiotics
Spoke with Briana from [place] - will call CM back as she is checking on private bed availability.
Discussed with foster Carreon potentially other SNF options.
Referrals to [facility] & [facility]
PLAN: [facility], pending bed availability - IV antibiotic
[2024-03-08 10:19] VITALS: BP 142/66; PULSE 57; O2SAT 95
--- NOTE | 2024-03-08 11:22 | W.PN.ID1 ---
Date of Service
Date of Service: March 08, 2024
Today's Communication
Continue antibiotics.
Assessment / Plan
Acute norovirus infection
ESBL E. coli recovered from urine
Urinary retention requiring Leon catheter placement
HTN
Morbid obesity
FLORENCIO
Recurrent urinary tract infection
GERD
Fibromyalgia
Dyslipidemia
CHF
Recommendations:
Continue with supportive measures for underlying norovirus.
Continue ertapenem in the treatment of recovered ESBL E. coli. Continue antibiotics through 03/18/2024.
Antibiotic prescription for [facility] facility given to case management.
����������������������������������������������������������
Chief Complaint
-: Other (Norovirus; complicated urinary tract infection)
Subjective / Review of Systems
Patient seen and examined. Reports ongoing fatigue and generalized global weakness. Nausea and vomiting have improved.
Review of Systems: No Dysuria
Vital Signs / Physical Exam
Vital Signs
Vital Signs
Temp Pulse Resp BP Pulse Ox
98.7 F 55 18 146/69 92
03/08/24 07:37 03/08/24 07:37 03/08/24 07:37 03/08/24 09:07 03/08/24 07:37
Physical Exam
Constitutional: No Acute Distress, Comfortable, Acutely Ill, Chronically Ill and Non-toxic
Eyes: Sclera Anicteric
Cardiovascular: S1/S2; Negative S3/S4
Pulmonary: Non Labored
Gastrointestinal: Non Distended
Extremities: Negative Cyanosis or Erythema
Neurological: Awake and Alert
Psychological: Calm
Objective Data
Lab Data
Lab Results
03/05/24 07:12
03/08/24 06:35
Estimated Creat Clear 46 ml/min 03/08/24 06:35
Total Bilirubin 1.0 mg/dl (0.2-1.3) 03/01/24 23:22
AST 33 U/L (14-36) 03/01/24 23:22
ALT 29 U/L (0-35) 03/01/24 23:22
Alkaline Phosphatase 68 U/L (38-126) 03/01/24 23:22
Most recent labs reviewed.
Micro Results:
03/05/24 09:20 MRSA Screen - Final
Nose No Methicillin Resistant Staphylococcus aureus isolated.
03/02/24 Unknown Urine Culture - Final
Urine Escherichia coli - ESBL
03/02/24 06:30 - Final
Feces/Stool Positive for Norovirus GII
Imaging:
03/02/2024 CXR (2 view): Mild bibasilar atelectasis. No convincing acute focal infiltrates noted. Please see full dictation for additional detail.
03/02/2024 CT abdomen/pelvis: Liver, spleen, right kidney, adrenal glands and pancreas are all within normal limits. Punctate nonobstructing left renal calculi present. No hydronephrosis noted. Gallbladder is absent. Slightly prominent
fluid-filled small bowel and right colon noted. Overall suspect mild enteritis.
[2024-03-08] MEDS: INVANZ 60 MG IV (13:30)
[2024-03-08 15:43] VITALS: BP 117/52
[2024-03-08 16:38] VITALS: BMI 36.7
[2024-03-08] MEDS: CRESTOR 5 MG PO (17:31)
[2024-03-08] MEDS: LOVENOX 40 MG SC (17:31)
[2024-03-08] MEDS: TYLENOL 650 MG PO (20:39)
[2024-03-08] MEDS: ULTRAM 25 MG PO (22:41)
[2024-03-08 23:31] VITALS: BP 112/51
[2024-03-09 06:00] VITALS: BMI 36.0
[2024-03-09 07:27] VITALS: BP 127/64
[2024-03-09] MEDS: PROTONIX 40 MG PO (08:29)
[2024-03-09] MEDS: FARXIGA 5 MG PO (08:29)
[2024-03-09] MEDS: ALDACTONE 25 MG PO (08:29)
[2024-03-09] MEDS: LASIX 40 MG PO (08:30)
[2024-03-09] MEDS: PROZAC 40 MG PO (08:30)
[2024-03-09] MEDS: PROCARDIA XL (EXTENDED RELEASE) 30 MG PO (08:30)
[2024-03-09] MEDS: NEURONTIN 300 MG PO (08:30)
[2024-03-09] MEDS: MYCOSTATIN ORAL SUSPENSION 5 ML PO (08:31)
[2024-03-09] MEDS: LOPRESSOR 25 MG PO (08:31)
[2024-03-09] MEDS: VISBIOME 1 CAP PO (08:31)
[2024-03-09] MEDS: DESENEX/MITRAZOL/ZEASORB 1 APPLIC TOPICAL (08:32)
--- NOTE | 2024-03-09 08:51 | W.PN.HOSP.TC ---
Today's Communication/Plan
-
DC to SNF today
Assessment / Plan
Assessment / Plan
89-year-old with history of hypertension, FLORENCIO, morbid obesity, recurrent UTIs who presents with acute symptoms of gastroenteritis including nausea vomiting diarrhea that started after her last dinner yesterday. Found to have enteritis on CT scan.
She hemodynamically stable, chest x-ray shows new infiltrates consistent with aspiration. UA was positive. She is uncomfortable but appears nontoxic.
PLAN:
1. Acute norovirus gastroenteritis
-now resolved
2. Pneumonia ruled out
-Patient is afebrile, denies cough/shortness of breath
-Chest x-ray negative for acute disease
3. HTN
-Continue metoprolol, resume nifedipine
4. UTI - h/o recurrent uti on macrobid since tuesday with ongoing symptoms and +u/a
Urinary Retention
ESBL UTI
-continue IV Meropenem for 10-14 days - day 5 --> s/p midline and plan to continue antibiotics at SNF
-appreciate ID
5. GERD
� Continue PPI
6. Fibromyalgia
� Continue gabapentin
7. Hyperlipidemia
Continue statin
8. Chronic heart failure with a preserved ejection fraction
-Resume Lasix/Aldactone, trend daily weights
-Continue Farxiga for GDMT
9. Obesity due to excess calories
� Affects all aspects of care
11. Hypokalemia
Repleted and resolved
12. Oral thrush
Continue nystatin day 5 out of 14
DVT PPX - lovenox sq
Code status - DNR
Total time spent to see the patient on the floor, examine the patient, review data and lab results, discuss treatment plan with patient, nursing staff around 50 minutes.
Anticipated Discharge: Today
Subjective/Interval History
-
Date of Service: March 09, 2024
had a formed bowel movement
Objective Data
-
Vital Signs:
Vital Signs
Temp Pulse Resp BP Pulse Ox
98.0 F 61 16 127/64 98
03/09/24 07:27 03/09/24 08:29 03/09/24 07:27 03/09/24 08:29 03/09/24 07:27
I&O
03/08/24 03/09/24 03/10/24
06:59 06:59 06:59
Intake Total 480 / 480 1170 / 1170
Output Total 750 / 750 845 / 845
Balance -270 / -270 325 / 325
Review of Systems
-
History Source: Patient
All other systems: Reviewed and negative
Physical Exam
-
General: Negative Respiratory Distress
Respiratory: Clear to Auscultation
Cardiac: Regular Rhythm and S1/S2; Negative Murmur or Rub
GI: Soft, Nontender and Nondistended
Musculoskeletal: No Edema
Neuro: Awake, Alert, Oriented, No Motor Deficits and Nonfocal/Grossly Intact
Psych: Calm
Data Reviewed
-
Diagnostic Radiology: Report Reviewed by me
Labs: Labs Reviewed by me
--- NOTE | 2024-03-09 08:54 | W.DS.TRANS ---
DC Summary - [employer]
-
Discharge Instructions:
Discharge Diagnosis/Procedures Norovirus and ESBL UTI, Urinary Retention
Diet Low Residue,Regular
Activity As tolerated
Driving Restrictions No driving
Bathing Restrictions None
Other Services PT,OT
Instructions:
Stand-Alone Forms:
Changes to Home Medications: Yes
Discharge Medications:
DC Medications w/original date entered in [facility]
metoprolol tartrate 25 mg tablet 25 mg PO BID Heart Disease/Condition 06/25/15
rosuvastatin 5 mg tablet 5 mg PO QPM High Cholesterol 06/25/15
ascorbic acid (vitamin C) 500 mg tablet (Vitamin C) 1,000 mg PO DAILY Supplement 03/18/23
calcium carbonate 600 mg PO DAILY Supplement 03/18/23
fluoxetine 40 mg capsule 40 mg PO DAILY Neurological Condition 03/18/23
albuterol sulfate 90 mcg/actuation aerosol inhaler 1 puff inhalation R Q4 PRN sob/wheezing #8.5 grams 03/20/23
nifedipine 30 mg tablet,extended release 30 mg PO DAILY #30 tabs 03/22/23
pantoprazole 20 mg tablet,delayed release (Protonix) 40 mg PO DAILY Gastrointestinal Issue 04/18/23
cholecalciferol (vitamin D3) 25 mcg (1,000 unit) tablet (Vitamin D3) 25 mcg PO DAILY 06/02/23
furosemide 40 mg tablet (Lasix) 40 mg PO DAILY #90 tabs 06/02/23
miconazole nitrate 2 % topical powder (Miconazorb AF) 1 applic topical BID PRN fungal rash in lef groin 06/02/23
dapagliflozin propanediol 5 mg tablet (Farxiga) 5 mg PO DAILY 03/02/24
spironolactone 25 mg tablet 25 mg PO DAILY 03/02/24
Ertapenem [Invanz] 1,000 mg 120 mls/hr IV Q24H 03/08/24
Lactobac/Bifidobac [Visbiome] 1 cap PO DAILY ##0 03/08/24
gabapentin 300 mg capsule 300 mg PO TID #90 caps 03/08/24
miconazole nitrate 2 % topical powder (Miconazorb AF) 1 applic topical BID #85 grams 03/08/24
nystatin 100,000 unit/mL oral suspension 5 ml PO QID #60 mL 03/08/24
Home Medication Changes
Gabapentin dosing decreased from 400mg TID to 300mg TID based on kidney function
Continue Nystatin through 03/12/24
IV Ertapenem through 03/18/24
Take a Probiotic while on antibiotics
Pending Results: No
--- NOTE | 2024-03-09 09:36 | CM ---
CM following re: discharge planning.
Reviewed pt's chart, met with pt and spoke to pt's daughter Velma to update on discharge plan progress.
Discharge order noted. Both pt and her daughter Velma are aware, expressed their agreement with discharge. IMM reviewed, placed on chart, pt has a copy.
CM spoke to [facility] SN[facility] liaison and she confirmed that pt is accepted for admission today.
[facility] Authorization approval certification #: [id number] (through [employer])
start date 03/09/24 --- end date 03/15/24
Fax updates [phone]
to arrange transportation, BLS. PMNC completed, left with
[facility] nursing Report #: [phone]
Discharge instructions Fax #: [phone]
D/C plan: [facility].
[2024-03-09] MEDS: TYLENOL 650 MG PO (11:04)
[2024-03-09 11:17] VITALS: BP 125/59
--- NOTE | 2024-03-09 11:23 | PTCARENOTE ---
Pt to be transferred to [facility] today at 1300 with Acute Care Medic. Pt to be transferred with Leon catheter and right PICC line to continue IV ABX through 03/18/2023. This RN attempted to call report to [facility], no answer from
nursing department. Instructed to call back with questions if requested.
--- NOTE | 2024-03-09 11:58 | W.PN.ID1 ---
Date of Service
Date of Service: March 09, 2024
Today's Communication
Continue current course of antibiotics.
Assessment / Plan
Acute norovirus infection
- symptoms improved / resolved
ESBL E. coli recovered from urine
Urinary retention requiring Leon catheter placement
HTN
Morbid obesity
FLORENCIO
Recurrent urinary tract infection
GERD
Fibromyalgia
Dyslipidemia
CHF
Recommendations:
Continue ertapenem in the treatment of recovered ESBL E. coli through 03/18/2024.
Antibiotic prescription for assisted facility given to case management.
����������������������������������������������������������
Chief Complaint
-: Other (Norovirus; complicated urinary tract infection)
Subjective / Review of Systems
Review of Systems: No Fever, No Chills and No Diarrhea
Vital Signs / Physical Exam
Vital Signs
Vital Signs
Temp Pulse Resp BP Pulse Ox
98.1 F 60 17 125/59 95
03/09/24 11:17 03/09/24 11:17 03/09/24 11:17 03/09/24 11:17 03/09/24 11:17
Physical Exam
Constitutional: No Acute Distress, Comfortable, Acutely Ill, Chronically Ill and Non-toxic
Eyes: Sclera Anicteric
Pulmonary: Non Labored
Gastrointestinal: Soft, Non Tender and Non Distended
Extremities: Negative Cyanosis or Erythema
Neurological: Awake and Alert
Psychological: Calm
Objective Data
Lab Data
Lab Results
03/05/24 07:12
03/08/24 06:35
Estimated Creat Clear 46 ml/min 03/08/24 06:35
Total Bilirubin 1.0 mg/dl (0.2-1.3) 03/01/24 23:22
AST 33 U/L (14-36) 03/01/24 23:22
ALT 29 U/L (0-35) 03/01/24 23:22
Alkaline Phosphatase 68 U/L (38-126) 03/01/24 23:22
Most recent labs reviewed.
Micro Results:
03/05/24 09:20 MRSA Screen - Final
Nose No Methicillin Resistant Staphylococcus aureus isolated.
03/02/24 Unknown Urine Culture - Final
Urine Escherichia coli - ESBL
03/02/24 06:30 - Final
Feces/Stool Positive for Norovirus GII
Imaging:
03/02/2024 CXR (2 view): Mild bibasilar atelectasis. No convincing acute focal infiltrates noted. Please see full dictation for additional detail.
03/02/2024 CT abdomen/pelvis: Liver, spleen, right kidney, adrenal glands and pancreas are all within normal limits. Punctate nonobstructing left renal calculi present. No hydronephrosis noted. Gallbladder is absent. Slightly prominent
fluid-filled small bowel and right colon noted. Overall suspect mild enteritis.
--- NOTE | 2024-03-09 13:00 | PTCARENOTE ---
[facility] called back for report from this RN, report given to RN (could not understand her name).
--- NOTE | 2024-03-09 14:33 | W.DCSUMMARY ---
Discharge Summary
Discharge Data
Date of Admission: 03/02/24
Date of Discharge: 03/09/24
-
Pending Results: No
Hospital Course
Discharging Physician : Dr. Esperanza Matos
Disposition : SNF
Primary care physician : Dr. Samira Patel
Principal Discharge diagnosis : Norovirus, ESBL UTI, Urinary Retention
Hospital Course :
Ms. Susannah Fierro is a 89 yo woman with hxhypertension, FLORENCIO, morbid obesity, recurrent UTIs who presents with acute symptoms of gastroenteritis including nausea, vomiting and diarrhea. Triage vitals stable. Labs with WBC 13, Creatinine 1.1. CT
with findings of enteritis. UA inflamed.
Patient was found to have norovirus. She was hydrated and given antiemetics PRN with resolution of symptoms prior to DC.
She had urinary retention with urine culture growing ESBL. ID was consulted. She was started on IV Ertapenem and is discharged to SNF to complete course through 03/18/24. Midline placed.
Time spent on discharge was 31 minutes.
Important imaging findings :
CXR:
IMPRESSION:
Bibasilar atelectasis.
CT A/P
IMPRESSION:
1. Suspect mild enteritis.
Procedure findings :
Discharge Plan
-
Patient Disposition: Prison/SNF
Discharge Diagnosis/Procedures: Norovirus and ESBL UTI, Urinary Retention
Condition: Fair
Diet: Regular and Low Residue
Activity: As tolerated
Driving Restrictions: No driving
Bathing Restrictions: None
Other Services: PT and OT
Activity Restrictions/Additional Instructions:
Leon Care - can trial void trial once mobility improves and after antibiotic course. If you fail voiding trial then you will need a referral to a Urologist.
Referrals:
Samira Patel MD [Family Provider] - in less than 1 week
Additional Discharge Medication Instructions: Gabapentin dosing decreased from 400mg TID to 300mg TID based on kidney function
Continue Nystatin through 03/12/24
IV Ertapenem through 03/18/24
Take a Probiotic while on antibiotics
Prescriptions:
New
miconazole nitrate [Miconazorb AF] 2 % Powder
1 applic topical BID Qty: 85 0RF
nystatin 100,000 unit/mL Suspension
5 ml PO QID Qty: 60 0RF
Rx Instructions:
End date 03/12/24
Ertapenem [Invanz] 1000 MG
0.9% Sodium Chloride [Nss] 50 ML
120 mls/hr IV Q24H
Ordered By: Esperanza Matos MD
Last Taken: 03/08/24 13:30 60 mls
Rx Instructions:
End Date 03/18/24
gabapentin 300 mg Capsule
300 mg PO TID Qty: 90 0RF
Lactobac/Bifidobac [Visbiome]
1 cap PO DAILY Qty: 0 0RF
Continued
rosuvastatin 5 MG tablet
5 mg PO QPM
metoprolol tartrate 25 MG tablet
25 mg PO BID
fluoxetine 40 mg capsule
40 mg PO DAILY
calcium carbonate 500 mg calcium (1,250 mg) Tablet
600 mg PO DAILY
ascorbic acid (vitamin C) [Vitamin C] 500 mg Tablet
1,000 mg PO DAILY
albuterol sulfate 90 mcg/actuation HFA aerosol inhaler
1 puff INHALATION R Q4 PRN (Reason: sob/wheezing) Qty: 8.5 0RF
nifedipine 30 mg Tablet Extended Release
30 mg PO DAILY Qty: 30 0RF
pantoprazole [Protonix] 20 mg Tablet,Delayed Release (Dr/Ec)
40 mg PO DAILY
cholecalciferol (vitamin D3) [Vitamin D3] 25 mcg (1,000 unit) Tablet
25 mcg PO DAILY
miconazole nitrate [Miconazorb AF] 2 % powder
1 applic topical BID PRN (Reason: fungal rash in lef groin)
furosemide [Lasix] 40 mg tablet
40 mg PO DAILY Qty: 90 5RF
spironolactone 25 mg Tablet
25 mg PO DAILY
dapagliflozin propanediol [Farxiga] 5 mg Tablet
5 mg PO DAILY
Discontinued
gabapentin 400 MG capsule
400 mg PO TID
Discharge Orders:
Discharge Patient (As Directed); Ordered 03/09/24
Ordered By: Esperanza Matos
Discharge Date and Time
Discharge Date/Time: 03/09/24 13:34
Print Language: YAKUT
== END 2024-03-09 13:34 | DRG 690 ==
LOC: 2 NORTH 03:02
PROVIDERS: Clinical Nurse Specialist Family Health; Family Medicine; Radiology Diagnostic Radiology; ADMITTING PHYSICIAN Internal Medicine; ATTENDING PHYSICIAN Student in an Organized Health Care Education/Training Program; CONSULT PHYSICIAN Internal Medicine Infectious Disease; EMERGENCY PHYSICIAN Student in an Organized Health Care Education/Training Program; FAMILY PHYSICIAN Emergency Medicine
PROC: 02HV33Z Insertion of Infusion Device into Superior Vena Cava, Percutaneous Approach (ICD-10-PCS; 2024-03-02)
DX: N39.0 Urinary tract infection, site not specified (principal); A08.11 Acute gastroenteropathy due to Norwalk agent; I50.32 Chronic diastolic (congestive) heart failure; B37.0 Candidal stomatitis; Z66 Do not resuscitate; G47.33 Obstructive sleep apnea (adult) (pediatric); E66.01 Morbid (severe) obesity due to excess calories; K21.9 Gastro-esophageal reflux disease without esophagitis; M79.7 Fibromyalgia; I11.0 Hypertensive heart disease with heart failure; E78.00 Pure hypercholesterolemia, unspecified; R33.8 Other retention of urine; E87.6 Hypokalemia; B96.20 Unspecified Escherichia coli [E. coli] as the cause of diseases classified elsewhere; Z88.0 Allergy status to penicillin; Z88.2 Allergy status to sulfonamides; Z79.899 Other long term (current) drug therapy; Z79.84 Long term (current) use of oral hypoglycemic drugs; Z68.37 Body mass index [BMI] 37.0-37.9, adult
CPT/HCPCS: 51701; 71045; 71046; 74177; 80048; 80053; 81003; 81015; 82962; 83690; 83735; 83880; 84100; 84484; 85025; 85027; 87070; 87077; 87086; 87186; 87798; 93005; 96374; 96375; 97162; 97530; 99285; J1335; Q9967

== ENCOUNTER → 2024-04-17 11:15 | Outpatient (REF) | payer OTHER, SELFPAY ==
[2024-04-17 11:51] LABS: % Basophils 0.2 % (0-2); % Eosinophils 4.4 % (0-6); % Immature Granulocytes 0.4 % (0-0.5); % Lymphocytes 35.7 % (20.5-51.1); % Monocytes 9.4 % (1.7-9.3); % Neutrophils 49.9 % (42.2-75.2); Absolute Eosinophils 0.2 10^3/uL (0-0.7); Absolute Lymphocytes 1.9 10^3/uL (1.2-3.4); Absolute Monocytes 0.5 10^3/uL (0.1-0.6); Absolute Neutrophils 2.6 10^3/uL (1.4-6.5); Hematocrit 38.4 % (37.0-47.0); Hemoglobin 12.7 g/dL (12.0-16.0); Mean Corp Hgb Conc. 33.1 g/dL (33.0-37.0); Mean Corpuscular Hgb 32.1 pg (27.0-31.0); Mean Platelet Volume 9.3 fL (7.4-10.4); Nucleated Red Blood Cells % 0 %; Platelet Count 219 10^3/uL (130-400); Red Blood Cell Count 3.96 10^6/uL (4.20-5.40); Red Cell Dist. Width 13.5 % (11.5-14.5); White Blood Cell Count 5.2 10^3/uL (4.8-10.8)
[2024-04-17 12:09] LABS: Blood Urea Nitrogen 18 mg/dl (7-17); Calcium 8.8 mg/dl (8.4-10.2); Carbon Dioxide 23 mmol/L (22-30); Chloride 100 mmol/L (98-107); Glucose 103 mg/dl (70-99); Potassium 3.7 mmol/L (3.5-5.1); Sodium 138 mmol/L (135-145); eGFR > 60.00
== END ==
LOC: OLABWIL 11:15
PROVIDERS: ATTENDING PHYSICIAN Emergency Medicine
DX: Z87.440 Personal history of urinary (tract) infections (principal); Z09 Encounter for follow-up examination after completed treatment for conditions other than malignant neoplasm; K52.9 Noninfective gastroenteritis and colitis, unspecified
CPT/HCPCS: 36415; 80048; 85025

== ENCOUNTER → 2024-04-19 12:12 | Outpatient (REF) | payer OTHER, SELFPAY | LOC: OLABWIL 12:12 | PROVIDERS: ATTENDING PHYSICIAN Emergency Medicine | DX: Z87.440 Personal history of urinary (tract) infections (principal); Z09 Encounter for follow-up examination after completed treatment for conditions other than malignant neoplasm; K52.9 Noninfective gastroenteritis and colitis, unspecified | CPT/HCPCS: 87077; 87086; 87186 ==

== ENCOUNTER 2024-04-21 00:28 | Emergency (ER) | payer OTHER, SELFPAY ==
[2024-04-21 00:34] VITALS: BP 139/59
--- NOTE | 2024-04-21 00:44 | ED.GENMED ---
History of Present Illness
General
Chief Complaint: Abdominal Symptoms
Time Seen by Provider: 04/21/24 00:32
History of Present Illness
History of Present Illness:
89-year-old female presents to the emergency department for evaluation of lower abdominal pain and diarrhea. She states over the past several days she was having urinary urgency and was given a prescription for fosfomycin which she took tonight.
It was not long after taking this antibiotic the diarrhea began. States she had multiple large-volume bowel movements with no blood. No fevers or chills. Abdominal pain is mild at this time. She was in the emergency department/hospital in late
February due to a urinary tract infection and found to have ESBL, treated with ertapenem
Past History
Past History
ED Past Medical History: Cancer (Skin cancer), CHF, Fibromyalgia, HTN, Hypercholesterolemia, Psychiatric (Anxiety, Depression) and Other (chronic back pain and neuropathy, Bronchitis, Diverticulitis, IBS, )
ED Past Surgical History: Bowel resection, Cholecystectomy, Gynecological (Hysterectomy, ), Tonsilectomy (and adenoids) and Other (Cataracts, Breast tumor, )
Social History
Tobacco: Non-smoker
Alcohol: Occasional
Drug: None
Personal:
Living: alone
Review of Systems
Review of Systems
Allergies reviewed?: Yes
All Other Systems: ROS reviewed and negative except as documented in HPI and ROS
Phy Exam
Physical Exam
Physical Exam:
GEN: Well appearing, NAD, WDWN
HEENT: Oral mucosa moist, no scleral icterus
Cardiac: Regular rate
Lung: No respiratory distress, no tachypnea
Abdomen: Soft, no tenderness, no rigidity
MSK: No gross deformity or injuries
Skin: Good color, no pallor or jaundice, no rashes
Neuro: AO x3, moves all extremities freely
Psych: Calm, cooperative
Course
Orders/Labs/Results
Orders:
Orders
04/21/24 00:43
0.9% Sodium Chloride 1000 ml [Nss] 1,000 ml IV BOLUS
04/21/24 01:02
Complete Blood Count/With Diff Urgent
04/21/24 01:22
Comprehensive Metabolic Panel Routine
Abnormal Lab Results
04/21/24 04/21/24
01:02 01:22
RBC 3.85 L 10^6/uL
(4.20-5.40)
Hct 35.9 L %
(37.0-47.0)
MCH 31.9 H pg
(27.0-31.0)
Glucose 112 H mg/dl
(70-99)
04/21/24 01:02
04/21/24 01:22
Vital Signs
Initial and Last Documented VS:
Initial Vital Signs
Temp Pulse Resp BP Pulse Ox
97.9 F 63 18 139/59 95
04/21/24 00:34 04/21/24 00:34 04/21/24 00:34 04/21/24 00:34 04/21/24 00:34
Last Documented Vital Signs
Temp Pulse Resp BP Pulse Ox
97.9 F 63 18 131/58 92
04/21/24 00:34 04/21/24 00:34 04/21/24 00:34 04/21/24 01:00 04/21/24 01:30
MDM/Problems Addressed
MDM/Problems Addressed:
Symptoms are most likely due to viral etiology. Doubt her recent antibiotic has any correlation here. Labs are reassuring, hydrated in the emergency department. Will be discharged back to [facility] in stable condition
*Critical Care Note
Total Time (30-74mins, 75-104mins- exclusive of procedures): Not Applicable
ED Attending Note
-
Portions of this chart may have been created with voice recognition software.� Occasional wrong word or��sound alike� substitutions may have occurred due to the inherent limitations of voice recognition software.
Discharge Plan
Departure
Patient Disposition: Home (Routine Discharge)
Date of Disposition: 04/21/24
Time of Disposition: 02:15
Patient with high blood pressure during this ER visit?: No
Discharge Problem:
Diarrhea
Instructions: Diarrhea in adults - ED discharge instructions
Prescriptions:
No Action
rosuvastatin 5 MG tablet
5 mg PO QPM
metoprolol tartrate 25 MG tablet
25 mg PO BID
fluoxetine 40 mg capsule
40 mg PO DAILY
calcium carbonate 500 mg calcium (1,250 mg) Tablet
600 mg PO DAILY
ascorbic acid (vitamin C) [Vitamin C] 500 mg Tablet
1,000 mg PO DAILY
nifedipine 30 mg Tablet Extended Release
30 mg PO DAILY Qty: 30 0RF
pantoprazole [Protonix] 20 mg Tablet,Delayed Release (Dr/Ec)
40 mg PO DAILY
cholecalciferol (vitamin D3) [Vitamin D3] 25 mcg (1,000 unit) Tablet
50 mcg PO DAILY
spironolactone 25 mg Tablet
25 mg PO DAILY
dapagliflozin propanediol [Farxiga] 5 mg Tablet
5 mg PO DAILY
diphenhydramine-acetaminophen [Tylenol PM Extra Strength] 25-500 mg Tablet
1 tab PO HS
gabapentin 400 mg Tablet
400 mg PO TID
aripiprazole 2 mg Tablet
2 mg PO BID
potassium
10 mg PO DAILY
furosemide [Lasix] 40 mg tablet
80 mg PO DAILY
Referrals:
SANTAYANA,JULIO C [Other]
Interventions
Interventions:
*Risk Screen - Suicide Last Done: 04/21/24 00:34
*General Assessment Last Done: 04/21/24 00:34
*Neglect/Abuse Screening Last Done: 04/21/24 00:34
ED- Fall Risk Assessment Last Done: 04/21/24 00:34
*ED COVID-19 Vaccine History Last Done: 04/21/24 00:34
QH-Xuhgvx-Nddolotpnk Assessment Last Done: 04/21/24 01:10
Discharge Date and Time
Print Language: GUAMANIAN
[2024-04-21 01:00] VITALS: BP 131/58
[2024-04-21] MEDS: NSS 1000 IV (01:03)
[2024-04-21 01:07] VITALS: BMI 37.2
[2024-04-21 01:16] LABS: % Basophils 0.3 % (0-2); % Eosinophils 3.2 % (0-6); % Immature Granulocytes 0.3 % (0-0.5); % Lymphocytes 27.3 % (20.5-51.1); % Monocytes 8.9 % (1.7-9.3); Absolute Eosinophils 0.2 10^3/uL (0-0.7); Absolute Lymphocytes 1.8 10^3/uL (1.2-3.4); Absolute Monocytes 0.6 10^3/uL (0.1-0.6); Absolute Neutrophils 3.9 10^3/uL (1.4-6.5); Hematocrit 35.9 % (37.0-47.0); Hemoglobin 12.3 g/dL (12.0-16.0); Mean Corp Hgb Conc. 34.3 g/dL (33.0-37.0); Mean Corpuscular Hgb 31.9 pg (27.0-31.0); Mean Corpuscular Volume 93.2 fL (81.0-99.0); Nucleated Red Blood Cells % 0 %; Platelet Count 203 10^3/uL (130-400); Red Blood Cell Count 3.85 10^6/uL (4.20-5.40); Red Cell Dist. Width 13.3 % (11.5-14.5); White Blood Cell Count 6.5 10^3/uL (4.8-10.8)
[2024-04-21 01:55] LABS: ALT (SGPT) 18 U/L (0-35); AST (SGOT) 24 U/L (14-36); Albumin 4.2 g/dl (3.5-5.0); Alkaline Phosphatase 56 U/L (38-126); Blood Urea Nitrogen 15 mg/dl (7-17); Calcium 8.9 mg/dl (8.4-10.2); Carbon Dioxide 28 mmol/L (22-30); Chloride 100 mmol/L (98-107); Estimated Creatinine Clearance 41 ml/min; Glucose 112 mg/dl (70-99); Potassium 3.7 mmol/L (3.5-5.1); Sodium 135 mmol/L (135-145); Total Bilirubin 0.9 mg/dl (0.2-1.3); Total Protein 6.6 g/dl (6.3-8.2); eGFR > 60.00
[2024-04-21 02:00] VITALS: BP 129/59
[2024-04-21 03:06] VITALS: BP 133/52
== END 2024-04-21 04:30 | disposition home or self-care (01) ==
LOC: EMR 00:28
PROVIDERS: Physician Assistant; EMERGENCY PHYSICIAN Student in an Organized Health Care Education/Training Program
DX: R19.7 Diarrhea, unspecified (principal); R10.30 Lower abdominal pain, unspecified; K58.0 Irritable bowel syndrome with diarrhea; R39.15 Urgency of urination; I11.0 Hypertensive heart disease with heart failure; I50.9 Heart failure, unspecified; G62.9 Polyneuropathy, unspecified; K57.92 Diverticulitis of intestine, part unspecified, without perforation or abscess without bleeding; G89.29 Other chronic pain; M54.9 Dorsalgia, unspecified; M79.7 Fibromyalgia; F32.A Depression, unspecified; F41.9 Anxiety disorder, unspecified; E78.00 Pure hypercholesterolemia, unspecified; Z87.440 Personal history of urinary (tract) infections; Z85.828 Personal history of other malignant neoplasm of skin; Z90.49 Acquired absence of other specified parts of digestive tract; Z98.0 Intestinal bypass and anastomosis status; Z88.2 Allergy status to sulfonamides; Z88.0 Allergy status to penicillin; Z91.013 Allergy to seafood
CPT/HCPCS: 99284; 96360; 96361; 80053; 85025

== ENCOUNTER 2024-04-26 15:34 | Inpatient (IN) | payer OTHER, SELFPAY ==
[2024-04-26] VITALS (21 sets, daily range): BP systolic 128–175; BP diastolic 59–79; BMI 36.4
[2024-04-26 12:18] LABS: % Basophils 0.4 % (0-2); % Immature Granulocytes 0.4 % (0-0.5); % Lymphocytes 36.6 % (20.5-51.1); % Monocytes 15.6 % (1.7-9.3); Absolute Lymphocytes 0.9 10^3/uL (1.2-3.4); Absolute Monocytes 0.4 10^3/uL (0.1-0.6); Absolute Neutrophils 1.2 10^3/uL (1.4-6.5); Hematocrit 39.2 % (37.0-47.0); Hemoglobin 13.3 g/dL (12.0-16.0); Mean Corp Hgb Conc. 33.9 g/dL (33.0-37.0); Mean Corpuscular Hgb 31.6 pg (27.0-31.0); Mean Corpuscular Volume 93.1 fL (81.0-99.0); Mean Platelet Volume 9.1 fL (7.4-10.4); Nucleated Red Blood Cells % 0 %; Platelet Count 151 10^3/uL (130-400); Red Blood Cell Count 4.21 10^6/uL (4.20-5.40); Red Cell Dist. Width 13.9 % (11.5-14.5); White Blood Cell Count 2.6 10^3/uL (4.8-10.8)
[2024-04-26 12:29] LABS: Venous Blood Gas HCO3 29.2 mmol/L (22-27); Venous Blood Gas O2 Sat % 73.2 %; Venous Blood Gas pCO2 45 mmHg (35-48); Venous Blood Gas pH 7.42 (7.32-7.43); Venous Blood Gas pO2 42 mmHg (30-50)
[2024-04-26 12:30] LABS: Glucose - Point of Care 104 mg/dl (70-99)
[2024-04-26 12:39] LABS: COVID-19 Antigen Negative (Negative)
[2024-04-26 12:40] LABS: NT-proBNP 228 pg/ml
[2024-04-26] MEDS: TAMIFLU 75 MG PO (13:07)
--- NOTE | 2024-04-26 13:16 | ED.GENMED ---
History of Present Illness
General
Chief Complaint: Breathing Problem
Time Seen by Provider: 04/26/24 11:43
History of Present Illness
History of Present Illness:
89-year-old female presents to the emergency department for evaluation of shortness of breath. She reportedly has felt unwell for quite some time, was seen in this ER last week for diarrhea at that time labs were normal. Patient seems fatigued on
exam but arouses to voice and answers questions appropriately. She denies any pain at this time.
Past History
Past History
ED Past Medical History: Cancer (Skin cancer), CHF, Fibromyalgia, HTN, Hypercholesterolemia, Psychiatric (Anxiety, Depression) and Other (chronic back pain and neuropathy, Bronchitis, Diverticulitis, IBS, )
ED Past Surgical History: Bowel resection, Cholecystectomy, Gynecological (Hysterectomy, ), Tonsilectomy (and adenoids) and Other (Cataracts, Breast tumor, )
Social History
Tobacco: Non-smoker
Alcohol: Occasional
Drug: None
Personal:
Living: alone
Review of Systems
Review of Systems
Allergies reviewed?: Yes
All Other Systems: ROS reviewed and negative except as documented in HPI and ROS
Phy Exam
Physical Exam
Physical Exam:
GEN: Ill-appearing, mild respiratory distress
HEENT: Oral mucosa moist, no scleral icterus
Cardiac: Regular rate and rhythm
Lung: Tachypneic, no accessory muscle use, diffuse crackles heard throughout all lung cerda
MSK: No gross deformity or injuries
Skin: Good color, no pallor or jaundice, no rashes
Neuro: Somewhat somnolent but arouses easily, oriented x 3, moves all extremities freely
Psych: Calm, cooperative
Scores
Heart Failure Risk
Heart Failure Risk Score: Not Applicable
Course
Orders/Labs/Results
Orders:
Orders
04/26/24 11:38
Electrocardiogram (*1) Urgent
Reason for Study: Shortness of Breath
04/26/24 11:39
EKG- Treatment ONCE
04/26/24 11:54
CR Chest Portable - 1 View Urgent
Comment:
Reason For Exam: SOB
Reason Study Needs to be Portable: Other
04/26/24 12:11
COVID-19 Antigen Urgent
Source: Nasal Swab
Complete Blood Count/With Diff Urgent
NT-proBNP Urgent
Venous Blood Gas Urgent
%Oxygen/Room Air: 90
Influenza A+B Rapid Molecular Urgent
LEONA Source: Nasal Swab
Specimen Description:
04/26/24 12:52
Oseltamivir Phosphate [Tamiflu] 75 mg PO NOW STA
04/26/24 13:37
0.9% Sodium Chloride 1000 ml [Nss] 1,000 ml IV BOLUS
04/26/24 14:24
Comprehensive Metabolic Panel Urgent
Abnormal Lab Results
04/26/24 04/26/24 04/26/24
12:11 12:28 14:24
WBC 2.6 L 10^3/uL
(4.8-10.8)
MCH 31.6 H pg
(27.0-31.0)
Absolute Neuts (auto) 1.2 L 10^3/uL
(1.4-6.5)
Absolute Lymphs (auto) 0.9 L 10^3/uL
(1.2-3.4)
Monocytes % 15.6 H %
(1.7-9.3)
VBG HCO3 29.2 H mmol/L
(22-27)
AST 46 H U/L
(14-36)
POC Glucose 104 H mg/dl
(70-99)
04/26/24 12:11
04/26/24 14:24
Vital Signs
Initial and Last Documented VS:
Initial Vital Signs
Temp
98.0 F
04/26/24 11:35
Last Documented Vital Signs
Temp Pulse Resp BP Pulse Ox
98.0 F 60 16 166/65 94
04/26/24 11:35 04/26/24 13:45 04/26/24 13:45 04/26/24 13:40 04/26/24 13:45
MDM/Problems Addressed
MDM/Problems Addressed:
Patient will be admitted to the hospital for acute respiratory insufficiency/hypoxia secondary to influenza. Although the timeframe of her influenza symptoms is not certain, we will treat with antivirals given her advanced age and respiratory
insufficiency. Chest x-ray shows no evidence for acute pneumonia. At 1329 the patient's daughter called nursing to the room for what appeared to be seizure-like activity. According to RN the patient had a brief unresponsive episode associated
with generalized myoclonus. The episode lasted 10 to 15 seconds and her vital signs remained stable during this period, upon awakening she was alert and oriented fully with no postictal period. Suspect this was a syncopal event rather than seizure
but will continue to monitor
*Critical Care Note
Total Time (30-74mins, 75-104mins- exclusive of procedures): Not Applicable
ED Attending Note
-
Portions of this chart may have been created with voice recognition software.� Occasional wrong word or��sound alike� substitutions may have occurred due to the inherent limitations of voice recognition software.
Discharge Plan
Departure
Patient Disposition: Admit
Date of Disposition: 04/26/24
Time of Disposition: 14:59
Admit to: Med/Surg
Presentation/result/management discussed w/ accepting MD/DO: Hospitalist
Discharge Problem:
Influenza A, Acute hypoxic respiratory failure
Prescriptions:
No Action
rosuvastatin 5 MG tablet
5 mg PO QPM
metoprolol tartrate 25 MG tablet
25 mg PO BID
fluoxetine 40 mg capsule
40 mg PO DAILY
calcium carbonate 500 mg calcium (1,250 mg) Tablet
600 mg PO DAILY
ascorbic acid (vitamin C) [Vitamin C] 500 mg Tablet
1,000 mg PO DAILY
nifedipine 30 mg Tablet Extended Release
30 mg PO DAILY Qty: 30 0RF
pantoprazole [Protonix] 20 mg Tablet,Delayed Release (Dr/Ec)
40 mg PO DAILY
cholecalciferol (vitamin D3) [Vitamin D3] 25 mcg (1,000 unit) Tablet
50 mcg PO DAILY
spironolactone 25 mg Tablet
25 mg PO DAILY
dapagliflozin propanediol [Farxiga] 5 mg Tablet
5 mg PO DAILY
diphenhydramine-acetaminophen [Tylenol PM Extra Strength] 25-500 mg Tablet
1 tab PO HS
gabapentin 400 mg Tablet
400 mg PO TID
aripiprazole 2 mg Tablet
2 mg PO BID
potassium
10 mg PO DAILY
furosemide [Lasix] 40 mg tablet
80 mg PO DAILY
Referrals:
UNKNOWN - PT NOT,INTERVIEWE [Family Provider] -
Interventions
Interventions:
*Risk Screen - Suicide Last Done: 04/26/24 11:42
*General Assessment Last Done: 04/26/24 11:42
*Neglect/Abuse Screening Last Done: 04/26/24 11:42
*ED COVID-19 Vaccine History Last Done: 04/26/24 11:42
ED- Cardiac Assessment Last Done: 04/26/24 11:46
ED- Pulmonary Assessment Last Done: 04/26/24 11:46
Discharge Date and Time
Print Language: NICARAGUAN
[2024-04-26] MEDS: NSS 1000 IV (13:48)
[2024-04-26 14:54] LABS: ALT (SGPT) 32 U/L (0-35); AST (SGOT) 46 U/L (14-36); Albumin 3.8 g/dl (3.5-5.0); Alkaline Phosphatase 63 U/L (38-126); Blood Urea Nitrogen 17 mg/dl (7-17); Calcium 8.5 mg/dl (8.4-10.2); Carbon Dioxide 30 mmol/L (22-30); Chloride 98 mmol/L (98-107); Glucose 93 mg/dl (70-99); Potassium 3.7 mmol/L (3.5-5.1); Sodium 135 mmol/L (135-145); Total Bilirubin 0.5 mg/dl (0.2-1.3); Total Protein 6.4 g/dl (6.3-8.2); eGFR > 60.00
--- NOTE | 2024-04-26 15:11 | HPS.HSE ---
Family Physician
-
Family Physician: INTERVIEWE UNKNOWN - PT NOT
Chief Complaint
-
shortness of breath
History of Present Illness
Ms. Susannah Fierro is a 89 yo woman with hx HFpEF, fibromyalgia, essential HTN, HLD, anxiety/depression who presents to the ER with shortness of breath. She was seen in the ER on 04/21/24 for diarrhea.
Patient is hard of hearing. History obtained with daughter at bedside. Since ER visit, diarrhea has not resolved and she reported incontinence during interview. She has had increasing fatigue and shortness of breath over past couple of days. She
lives at [facility].
While in the ER, daughter reported she witnessed patient lose consciousness, < 1 minute. Evaluated by staff after episode with normal VS. Patient without confusion. She denies chest pain.
No known fevers. + intermittent cough. No nausea/vomiting. She has been eating well.
Medical History
Past Medical History
Past Medical History: Reports HTN, Hypercholesterolemia and Other (FLORENCIO)
Additional Past Medical History:
Fibromyalgia
Past Surgical History: Reports Other
Social History
Tobacco: Non-smoker
Alcohol: None
Drug: None
Personal: Single
Living: Assisted Living
Employment: Retired
Family History
Family History: Not pertinent
Allergies / Home Medications
Allergies reflects when Allergies were last updated in [facility].
Home Medications with original date entered in [facility]
Allergy/Medication List:
Allergies
Allergy/AdvReac Type Severity Reaction Status Date / Time
Penicillins Allergy Rash Verified 04/21/24 00:33
shellfish derived Allergy Unknown Verified 04/21/24 00:33
Sulfa (Sulfonamide Allergy Rash Verified 04/21/24 00:33
Antibiotics)
Home Medications
metoprolol tartrate 25 mg tablet 25 mg PO BID Heart Disease/Condition 06/25/15
rosuvastatin 5 mg tablet 5 mg PO QPM High Cholesterol 06/25/15
ascorbic acid (vitamin C) 500 mg tablet (Vitamin C) 1,000 mg PO DAILY Supplement 03/18/23
calcium carbonate 600 mg PO DAILY Supplement 03/18/23
fluoxetine 40 mg capsule 40 mg PO DAILY Neurological Condition 03/18/23
nifedipine 30 mg tablet,extended release 30 mg PO DAILY #30 tabs 03/22/23
cholecalciferol (vitamin D3) 25 mcg (1,000 unit) tablet (Vitamin D3) 50 mcg PO DAILY 06/02/23
dapagliflozin propanediol 5 mg tablet (Farxiga) 5 mg PO DAILY 03/02/24
spironolactone 25 mg tablet 25 mg PO DAILY 03/02/24
aripiprazole 2 mg tablet 2 mg PO BID 04/21/24
diphenhydramine 25 mg-acetaminophen 500 mg tablet (Tylenol PM Extra Strength) 1 tab PO HSPRN PRN sleep 04/21/24
furosemide 40 mg tablet (Lasix) 80 mg PO DAILY 04/21/24
potassium chloride 10 mEq tablet,extended release 10 meq PO DAILY 04/21/24
gabapentin 300 mg capsule 300 mg PO TID 04/26/24
Review of Systems
-
History Source: Patient
A 12 point ROS was completed and negative except as noted: Yes
Physical Exam
Vital Signs
Vital Signs
Temp Pulse Resp BP Pulse Ox
98.0 F 60 16 166/65 94
04/26/24 11:35 04/26/24 13:45 04/26/24 13:45 04/26/24 13:40 04/26/24 13:45
Physical Exam
General: No Apparent Distress
HEENT: PERRLA
Respiratory: Decreased Breath Sounds; No Wheezes
Cardiac: S1/S2 and Regular Rhythm
GI: Soft and Non Tender
Musculoskeletal: No Edema
Skin: Warm and Dry; No Rash
Neuro: Awake and Alert
Psych: Calm
Laboratory Results
-
04/26/24 12:11
04/26/24 14:24
Laboratory Results
Total Bilirubin 0.5 mg/dl (0.2-1.3) 04/26/24 14:24
AST 46 U/L (14-36) H 04/26/24 14:24
ALT 32 U/L (0-35) 04/26/24 14:24
Alkaline Phosphatase 63 U/L (38-126) 04/26/24 14:24
Data Reviewed
-
Diagnostic Radiology: Report Reviewed by me
Lab Data: Labs Reviewed by me
Impression/Plan
-
Ms. Susannah Fierro is a 89 yo woman with hx HFpEF, fibromyalgia, essential HTN, HLD, anxiety/depression who presents to the ER with shortness of breath. She was seen in the ER on 04/21/24 for diarrhea. She had a witnessed episode of syncope in the
ER.
Triage VS: T 98, P 60, RR 16, BP 166/65, SpO2 94%
LABS: WBC 2.6, Hg 13.3, PLT 151, Na 135, K+ 3.7, CO2 30, Cr 0.7, Glucose 93, liver enzymes WNL
Covid Negative
Influenza A +
CXR
IMPRESSION:
No focal airspace disease. Likely minimal interstitial edema.
MAR: IVF, Tamiflu
Influenza A
Hypoxic Respiratory Insufficiency
Syncope
-admit to telemetry
-suspect Vasovagal syncope given association with GI upset
-continue Tamiflu, timing of onset unclear, but patient will be hospitalized
-O2 support as needed
-PT/OT
-trend Troponins
HFpEF
-patient mildly hypoxic with CXR showing likely minimal edema
-with vasovagal syncope earlier, will hold off on IV diuresis
-continue LOCAL COORDINATOR Lasix/Spironolactone
-consider administering IV lasix based on exam, labs tomorrow
-*daughter reports frequent UTI's, will hold LOCAL COORDINATOR Farxiga for now
Anxiety/Depression
-LOCAL COORDINATOR Fluoxetine, Abilify
HLD
-LOCAL COORDINATOR STatin
Essential hypertension
-patient hypertensive in ER
-continue LOCAL COORDINATOR regimen: Nifedipine, Metoprolol
-LOCAL COORDINATOR spironolactone as above
DVT PPx Lovenox subQ
DNR - confirmed on admission
[2024-04-26 16:28] LABS: Troponin I 0.013 ng/ml
--- NOTE | 2024-04-26 18:00 | PTCARENOTE ---
patient arrived from ED on 2 L NC. VSS. BRIAN. Fine crackles with expiratory wheezing upon assessment. Patient denies pain. x 1 assist with RW. Dual skin check pending. Oncoming RN updated. Telemetry placed. Reading NSR--strip printed and placed in
chart. Patient oriented to room. Bed in lowest position. Bed alarm on. Droplet precautions maintained. Call mckinnon and personal belongings within reach.
[2024-04-26] MEDS: LOVENOX 40 MG SC (20:55)
[2024-04-26] MEDS: CRESTOR 5 MG PO (20:55)
[2024-04-26] MEDS: NEURONTIN PO (20:56)
[2024-04-26] MEDS: NEURONTIN 300 MG PO (20:56)
[2024-04-26] MEDS: LOPRESSOR 25 MG PO (20:57)
[2024-04-26] MEDS: ABILIFY 2 MG PO (21:03)
[2024-04-26] MEDS: TAMIFLU 30 MG PO (21:04)
[2024-04-26 22:43] LABS: Troponin I 0.016 ng/ml
[2024-04-27] VITALS (9 sets, daily range): BP systolic 99–134; BP diastolic 48–70; PULSE 61; O2SAT 96; BMI 36.0
[2024-04-27] MEDS: KCL 10 MEQ PO (08:25)
[2024-04-27] MEDS: LASIX 80 MG PO (08:25)
[2024-04-27] MEDS: PROZAC 40 MG PO (08:25)
[2024-04-27] MEDS: PROCARDIA XL (EXTENDED RELEASE) 30 MG PO (08:26)
[2024-04-27] MEDS: ABILIFY 2 MG PO ×2 (08:27→21:01)
[2024-04-27] MEDS: NEURONTIN 300 MG PO ×3 (08:27→21:01)
[2024-04-27] MEDS: TAMIFLU 30 MG PO ×2 (08:27→21:00)
[2024-04-27] MEDS: VITAMIN C 1000 MG PO (08:28)
[2024-04-27] MEDS: ALDACTONE 25 MG PO (08:28)
[2024-04-27] MEDS: LOPRESSOR PO (08:30)
[2024-04-27 08:40] LABS: Hematocrit 36.3 % (37.0-47.0); Hemoglobin 12.4 g/dL (12.0-16.0); Mean Corp Hgb Conc. 34.2 g/dL (33.0-37.0); Mean Corpuscular Hgb 31.3 pg (27.0-31.0); Mean Corpuscular Volume 91.7 fL (81.0-99.0); Mean Platelet Volume 8.9 fL (7.4-10.4); Platelet Count 149 10^3/uL (130-400); Red Blood Cell Count 3.96 10^6/uL (4.20-5.40); Red Cell Dist. Width 13.9 % (11.5-14.5); White Blood Cell Count 2.4 10^3/uL (4.8-10.8)
[2024-04-27 08:41] LABS: Troponin I 0.026 ng/ml
--- NOTE | 2024-04-27 08:41 | VNURNOTE ---
Chart reviewed. Patient is current with [facility] nursing, PT, OT. Will continue to follow hospital course and DC plans.
[2024-04-27 09:00] LABS: Blood Urea Nitrogen 14 mg/dl (7-17); Calcium 8.3 mg/dl (8.4-10.2); Carbon Dioxide 24 mmol/L (22-30); Chloride 101 mmol/L (98-107); Estimated Creatinine Clearance 52 ml/min; Glucose 87 mg/dl (70-99); Magnesium 2.2 mg/dl (1.6-2.3); Potassium 3.8 mmol/L (3.5-5.1); Sodium 135 mmol/L (135-145); eGFR > 60.00
[2024-04-27 09:58] LABS: % Eosinophils 0.8 % (0-6); % Lymphocytes 47.1 % (20.5-51.1); % Monocytes 12.7 % (1.7-9.3); % Neutrophils 39.4 % (42.2-75.2); Absolute Lymphocytes 1.2 10^3/uL (1.2-3.4); Absolute Monocytes 0.3 10^3/uL (0.1-0.6); Nucleated Red Blood Cells % 0 %
--- NOTE | 2024-04-27 14:10 | W.PN.HOSP.TC ---
Today's Communication/Plan
-
wean o2
tamiflu
Assessment / Plan
Assessment / Plan
Physical Exam
General: No Apparent Distress
HEENT: PERRLA
Respiratory: Decreased Breath Sounds; No Wheezes
Cardiac: S1/S2 and Regular Rhythm
GI: Soft and Non Tender
Musculoskeletal: No Edema
Skin: Warm and Dry; No Rash
Neuro: Awake and Alert
Psych: Calm
Ms. Susannah Fierro is a 89 yo woman with hx HFpEF, fibromyalgia, essential HTN, HLD, anxiety/depression who presents to the ER with shortness of breath. She was seen in the ER on 04/21/24 for diarrhea. She had a witnessed episode of syncope in the
ER.
Influenza A
Hypoxic Respiratory Insufficiency
Syncope
-admit to telemetry
-suspect Vasovagal syncope given association with GI upset
-continue Tamiflu, timing of onset unclear, but patient will be hospitalized
-O2 support as needed
-PT/OT
-trend Troponins
-wean o2 as tolerated
#Leukopenia
-2/2 to acute infection
-monitor
HFpEF
-patient mildly hypoxic with CXR showing likely minimal edema
-with vasovagal syncope earlier, will hold off on IV diuresis
-continue FOREST ENGINEER Lasix/Spironolactone
-consider administering IV lasix based on exam, labs tomorrow
-*daughter reports frequent UTI's, will hold FOREST ENGINEER Farxiga for now
Anxiety/Depression
-FOREST ENGINEER Fluoxetine, Abilify
HLD
-FOREST ENGINEER statin
Essential hypertension
-patient hypertensive in ER
-continue FOREST ENGINEER regimen: Nifedipine, Metoprolol
-FOREST ENGINEER spironolactone as above
DVT PPx Lovenox subQ
DNR - confirmed on admission
Anticipated Discharge: 24 - 48 hours
Subjective/Interval History
-
Date of Service: April 27, 2024
no acute events
Objective Data
-
Labs:
Laboratory Results
04/27/24
07:35
WBC 2.4 L*
Hgb 12.4
Hct 36.3 L
Plt Count 149
Sodium 135
Potassium 3.8
Chloride 101
Carbon Dioxide 24
BUN 14
Creatinine 0.7
Glucose 87
Calcium 8.3 L
Vital Signs:
Vital Signs
Temp Pulse Resp BP Pulse Ox
98 F 61 18 100/48 94
04/27/24 11:00 04/27/24 11:00 04/27/24 11:00 04/27/24 11:00 04/27/24 11:00
I&O
04/26/24 04/27/24 04/28/24
06:59 06:59 06:59
Intake Total 240 / 240 960 / 960
Balance 240 / 240 960 / 960
Review of Systems
-
History Source: Patient
All other systems: Not reviewed unless documented
Physical Exam
-
General: Negative Respiratory Distress
Respiratory: Clear to Auscultation
Cardiac: Regular Rhythm and S1/S2; Negative Murmur or Rub
GI: Soft, Nontender and Nondistended
Musculoskeletal: No Edema
Neuro: Awake, Alert, Oriented, No Motor Deficits and Nonfocal/Grossly Intact
Psych: Calm
Data Reviewed
-
Diagnostic Radiology: Report Reviewed by me
Labs: Labs Reviewed by me
--- NOTE | 2024-04-27 15:18 | PTCARENOTE ---
patient with stress incontinence but not fully voiding. patient complaining of bladder feeling full. bladder scan >[address] Otero notified. Awaiting straight cath orders
--- NOTE | 2024-04-27 16:04 | CM ---
patient seen bedside with daughter.
Patient lives at [facility].
patient independent prior to admission, ambulates with a rollator.
Patient does not drive.
Patient has been in skilled rehab in the past and had [facility].
patient also had private care givers a few hours a day but does not any more.
PT recommending skilled rehab, patient and daughter in agreement.
PCP: Dr Patel
Pharmacy: [facility]
Plan: skilled rehab, referral sent to [facility].
[2024-04-27] MEDS: TYLENOL 650 MG PO (16:29)
[2024-04-27] MEDS: CRESTOR 5 MG PO (16:29)
[2024-04-27] MEDS: LOVENOX 40 MG SC (18:02)
[2024-04-27] MEDS: LOPRESSOR 25 MG PO (20:56)
[2024-04-27] MEDS: DESENEX/MITRAZOL/ZEASORB 1 APPLIC TOPICAL (20:56)
[2024-04-28 03:00] VITALS: BP 136/63
[2024-04-28 04:55] VITALS: BMI 36.2
[2024-04-28 07:00] VITALS: BP 124/51
[2024-04-28] MEDS: PROCARDIA XL (EXTENDED RELEASE) 30 MG PO (09:24)
[2024-04-28] MEDS: LASIX 80 MG PO (09:24)
[2024-04-28] MEDS: PROZAC 40 MG PO (09:24)
[2024-04-28] MEDS: NEURONTIN 300 MG PO ×3 (09:24→20:38)
[2024-04-28] MEDS: FARXIGA 5 MG PO (09:25)
[2024-04-28] MEDS: ABILIFY 2 MG PO ×2 (09:25→20:37)
[2024-04-28] MEDS: LOPRESSOR 25 MG PO ×2 (09:25→20:38)
[2024-04-28] MEDS: KCL 10 MEQ PO (09:26)
[2024-04-28] MEDS: ALDACTONE 25 MG PO (09:26)
[2024-04-28] MEDS: TAMIFLU 30 MG PO ×2 (09:26→20:37)
[2024-04-28] MEDS: VITAMIN C 1000 MG PO (09:26)
[2024-04-28 10:27] LABS: Hemoglobin 12.9 g/dL (12.0-16.0); Mean Corp Hgb Conc. 33.9 g/dL (33.0-37.0); Mean Corpuscular Hgb 31.3 pg (27.0-31.0); Mean Corpuscular Volume 92.2 fL (81.0-99.0); Mean Platelet Volume 9.2 fL (7.4-10.4); Platelet Count 156 10^3/uL (130-400); Red Blood Cell Count 4.12 10^6/uL (4.20-5.40); Red Cell Dist. Width 13.7 % (11.5-14.5); White Blood Cell Count 2.6 10^3/uL (4.8-10.8)
[2024-04-28 11:00] VITALS: BP 127/59
[2024-04-28 11:02] LABS: ALT (SGPT) 25 U/L (0-35); AST (SGOT) 32 U/L (14-36); Albumin 3.6 g/dl (3.5-5.0); Alkaline Phosphatase 60 U/L (38-126); Blood Urea Nitrogen 11 mg/dl (7-17); Calcium 8.4 mg/dl (8.4-10.2); Carbon Dioxide 29 mmol/L (22-30); Chloride 100 mmol/L (98-107); Estimated Creatinine Clearance 52 ml/min; Glucose 97 mg/dl (70-99); Potassium 3.3 mmol/L (3.5-5.1); Sodium 135 mmol/L (135-145); Total Bilirubin 0.7 mg/dl (0.2-1.3); Total Protein 6.1 g/dl (6.3-8.2); eGFR > 60.00
--- NOTE | 2024-04-28 14:24 | W.PN.HOSP.TC ---
Today's Communication/Plan
-
wean o2
cxr
Assessment / Plan
Assessment / Plan
Physical Exam
General: No Apparent Distress
HEENT: PERRLA
Respiratory: Decreased Breath Sounds; No Wheezes
Cardiac: S1/S2 and Regular Rhythm
GI: Soft and Non Tender
Musculoskeletal: No Edema
Skin: Warm and Dry; No Rash
Neuro: Awake and Alert
Psych: Calm
Ms. Susannah Fierro is a 89 yo woman with hx HFpEF, fibromyalgia, essential HTN, HLD, anxiety/depression who presents to the ER with shortness of breath. She was seen in the ER on 04/21/24 for diarrhea. She had a witnessed episode of syncope in the
ER.
Influenza A
Hypoxic Respiratory Insufficiency
Syncope
-admit to telemetry
-suspect Vasovagal syncope given association with GI upset
-continue Tamiflu, timing of onset unclear, but patient will be hospitalized
-O2 support as needed - wean o2 as tolerated
-PT/OT
-wean o2 as tolerated
#Leukopenia
-2/2 to acute infection
-monitor
HFpEF
-patient mildly hypoxic with CXR showing likely minimal edema; bnp low
-with vasovagal syncope earlier, will hold off on IV diuresis
-continue POWER WASHER Lasix/Spironolactone
-consider administering IV lasix based on exam, labs tomorrow
-*daughter reports frequent UTI's, will hold POWER WASHER Farxiga for now
Anxiety/Depression
-POWER WASHER Fluoxetine, Abilify
HLD
-POWER WASHER statin
Essential hypertension
-patient hypertensive in ER
-continue POWER WASHER regimen: Nifedipine, Metoprolol
-POWER WASHER spironolactone as above
DVT PPx Lovenox subQ
DNR - confirmed on admission
Anticipated Discharge: Within 24 hours
Subjective/Interval History
-
Date of Service: April 28, 2024
no acute events
Objective Data
-
Labs:
Laboratory Results
04/28/24
08:24
WBC 2.6 L
Hgb 12.9
Hct 38.0
Plt Count 156
Sodium 135
Potassium 3.3 L
Chloride 100
Carbon Dioxide 29
BUN 11
Creatinine 0.7
Glucose 97
Calcium 8.4
Total Bilirubin 0.7
AST 32
ALT 25
Alkaline Phosphatase 60
Vital Signs:
Vital Signs
Temp Pulse Resp BP Pulse Ox
97.9 F 57 16 127/59 98
04/28/24 11:00 04/28/24 11:00 04/28/24 11:00 04/28/24 11:00 04/28/24 11:00
I&O
04/27/24 04/28/24 04/29/24
06:59 06:59 06:59
Intake Total 240 / 240 960 / 960
Output Total 1000 / 1000
Balance 240 / 240 -40 / -40
Review of Systems
-
History Source: Patient
All other systems: Not reviewed unless documented
Physical Exam
-
General: Negative Respiratory Distress
Respiratory: Clear to Auscultation
Cardiac: Regular Rhythm and S1/S2; Negative Murmur or Rub
GI: Soft, Nontender and Nondistended
Musculoskeletal: No Edema
Neuro: Awake, Alert, Oriented, No Motor Deficits and Nonfocal/Grossly Intact
Psych: Calm
Data Reviewed
-
Diagnostic Radiology: Report Reviewed by me
Labs: Labs Reviewed by me
[2024-04-28] MEDS: DESENEX/MITRAZOL/ZEASORB 1 APPLIC TOPICAL ×2 (14:54→20:38)
[2024-04-28] MEDS: KCL ELIXIR 40 MEQ PO ×2 (14:55→17:40)
[2024-04-28 16:00] VITALS: BP 110/52
[2024-04-28] MEDS: CRESTOR 5 MG PO (17:40)
[2024-04-28] MEDS: LOVENOX 40 MG SC (17:40)
[2024-04-28 19:56] VITALS: BP 123/54
[2024-04-28] MEDS: TYLENOL 650 MG PO (20:40)
[2024-04-28 23:38] VITALS: BP 109/52
[2024-04-29 03:00] VITALS: BP 104/51
[2024-04-29 06:00] VITALS: BMI 36.0
[2024-04-29 07:02] LABS: Hematocrit 38.1 % (37.0-47.0); Hemoglobin 12.7 g/dL (12.0-16.0); Mean Corp Hgb Conc. 33.3 g/dL (33.0-37.0); Mean Corpuscular Volume 92.9 fL (81.0-99.0); Mean Platelet Volume 9.1 fL (7.4-10.4); Platelet Count 144 10^3/uL (130-400); Red Cell Dist. Width 13.5 % (11.5-14.5); White Blood Cell Count 2.9 10^3/uL (4.8-10.8)
[2024-04-29 07:30] LABS: ALT (SGPT) 23 U/L (0-35); AST (SGOT) 29 U/L (14-36); Albumin 3.6 g/dl (3.5-5.0); Alkaline Phosphatase 60 U/L (38-126); Blood Urea Nitrogen 9 mg/dl (7-17); Calcium 8.6 mg/dl (8.4-10.2); Carbon Dioxide 28 mmol/L (22-30); Chloride 100 mmol/L (98-107); Estimated Creatinine Clearance 46 ml/min; Glucose 105 mg/dl (70-99); Potassium 3.8 mmol/L (3.5-5.1); Sodium 136 mmol/L (135-145); Total Bilirubin 0.8 mg/dl (0.2-1.3); Total Protein 6.2 g/dl (6.3-8.2); eGFR > 60.00
[2024-04-29 07:34] VITALS: BP 135/69
[2024-04-29] MEDS: ABILIFY 2 MG PO ×2 (09:36→20:53)
[2024-04-29] MEDS: PROZAC 40 MG PO (09:36)
[2024-04-29] MEDS: LOPRESSOR 25 MG PO ×2 (09:36→21:00)
[2024-04-29] MEDS: ALDACTONE 25 MG PO (09:36)
[2024-04-29] MEDS: VITAMIN C 1000 MG PO (09:36)
[2024-04-29] MEDS: TAMIFLU 30 MG PO ×2 (09:37→21:09)
[2024-04-29] MEDS: KCL 10 MEQ PO (09:37)
[2024-04-29] MEDS: FARXIGA 5 MG PO (09:37)
[2024-04-29] MEDS: NEURONTIN 300 MG PO ×3 (09:37→21:00)
[2024-04-29] MEDS: PROCARDIA XL (EXTENDED RELEASE) 30 MG PO (09:37)
[2024-04-29] MEDS: DESENEX/MITRAZOL/ZEASORB 1 APPLIC TOPICAL ×2 (09:37→20:53)
[2024-04-29] MEDS: LASIX 80 MG PO (09:37)
[2024-04-29 11:00] VITALS: BP 115/58
[2024-04-29 12:19] LABS: Urine Albumin 1+ (Neg - Trace); Urine Bilirubin Negative (Negative); Urine Character Slightly Cloudy (Clear); Urine Color Yellow; Urine Glucose 3+ (Negative); Urine Ketone Negative (Negative); Urine Leukocyte 3+ (Negative); Urine Nitrite Positive (Negative); Urine Occult Blood 1+ (Negative); Urine Specific Gravity 1.015 (<1.030); Urine Urobilinogen Negative (Neg - 1+); Urine pH 6.5 (5.0-9.0)
[2024-04-29 12:30] LABS: Urine Bacteria Many (Negative); Urine Red Blood Cell 0-2 /HPF (0-2); Urine White Cell 30-40 /HPF (0-5)
--- NOTE | 2024-04-29 12:48 | W.PN.HOSP.TC ---
Today's Communication/Plan
-
tamiflu
f/u urine cultures
start zosyn for UTI
Assessment / Plan
Assessment / Plan
Physical Exam
General: No Apparent Distress
HEENT: PERRLA
Respiratory: Decreased Breath Sounds; No Wheezes
Cardiac: S1/S2 and Regular Rhythm
GI: Soft and Non Tender
Musculoskeletal: No Edema
Skin: Warm and Dry; No Rash
Neuro: Awake and Alert
Psych: Calm
Ms. Susannah Fierro is a 89 yo woman with hx HFpEF, fibromyalgia, essential HTN, HLD, anxiety/depression who presents to the ER with shortness of breath. She was seen in the ER on 04/21/24 for diarrhea. She had a witnessed episode of syncope in the
ER.
Influenza A
Hypoxic Respiratory Insufficiency
Syncope
-admit to telemetry
-suspect Vasovagal syncope given association with GI upset
-continue Tamiflu, timing of onset unclear, but patient will be hospitalized
-O2 support as needed-weaned to RA
-PT/OT- Skilled rehab
#Leukopenia
-2/2 to acute infection
-monitor
#UTI
-ua positive with symptoms
-has Hx of ESBL
-start zosyn
-f/u cultures
HFpEF
-patient mildly hypoxic with CXR showing likely minimal edema; bnp low
-with vasovagal syncope earlier, will hold off on IV diuresis
-continue INSTRUCTION LIBRARIAN Lasix/Spironolactone
-consider administering IV lasix based on exam, labs tomorrow
-*daughter reports frequent UTI's, will hold INSTRUCTION LIBRARIAN Farxiga for now
Anxiety/Depression
-INSTRUCTION LIBRARIAN Fluoxetine, Abilify
HLD
-INSTRUCTION LIBRARIAN statin
Essential hypertension
-patient hypertensive in ER
-continue INSTRUCTION LIBRARIAN regimen: Nifedipine, Metoprolol
-INSTRUCTION LIBRARIAN spironolactone as above
DVT PPx Lovenox subQ
DNR - confirmed on admission
Anticipated Discharge: 24 - 48 hours
Subjective/Interval History
-
Date of Service: April 29, 2024
respiratory symptoms improved although with urinary urgency, dysuria
Objective Data
-
Labs:
Laboratory Results
04/29/24
06:01
WBC 2.9 L
Hgb 12.7
Hct 38.1
Plt Count 144
Sodium 136
Potassium 3.8
Chloride 100
Carbon Dioxide 28
BUN 9
Creatinine 0.8
Glucose 105 H
Calcium 8.6
Total Bilirubin 0.8
AST 29
ALT 23
Alkaline Phosphatase 60
Vital Signs:
Vital Signs
Temp Pulse Resp BP Pulse Ox
98.9 F 62 20 115/58 95
04/29/24 11:00 04/29/24 11:00 04/29/24 11:00 04/29/24 11:00 04/29/24 11:00
I&O
04/28/24 04/29/24 04/30/24
06:59 06:59 06:59
Intake Total 960 / 960
Output Total 1000 / 1000 480 / 480
Balance -40 / -40 -480 / -480
Review of Systems
-
History Source: Patient
All other systems: Not reviewed unless documented
Physical Exam
-
General: Negative Respiratory Distress
Respiratory: Clear to Auscultation
Cardiac: Regular Rhythm and S1/S2; Negative Murmur or Rub
GI: Soft, Nontender and Nondistended
Musculoskeletal: No Edema
Neuro: Awake, Alert, Oriented, No Motor Deficits and Nonfocal/Grossly Intact
Psych: Calm
Data Reviewed
-
Diagnostic Radiology: Report Reviewed by me
Labs: Labs Reviewed by me
[2024-04-29] MEDS: LOVENOX 40 MG SC (18:01)
[2024-04-29] MEDS: CRESTOR 5 MG PO (18:01)
[2024-04-29] MEDS: MERREM 500 MG IV (18:02)
[2024-04-29 19:30] VITALS: BP 110/43
[2024-04-29 23:30] VITALS: BP 127/61
[2024-04-30] VITALS (7 sets, daily range): BP systolic 102–137; BP diastolic 48–99; BMI 35.0
[2024-04-30] MEDS: STERILE WATER FOR INJECTION 10 ML IV ×4 (00:18→23:53)
[2024-04-30] MEDS: MERREM 500 MG IV ×4 (00:19→23:54)
[2024-04-30] MEDS: NEURONTIN 300 MG PO ×3 (08:14→22:06)
[2024-04-30] MEDS: FARXIGA 5 MG PO (08:14)
[2024-04-30] MEDS: TAMIFLU 30 MG PO ×2 (08:15→20:47)
[2024-04-30] MEDS: KCL 10 MEQ PO (08:15)
[2024-04-30] MEDS: ALDACTONE 25 MG PO (08:15)
[2024-04-30] MEDS: PROZAC 40 MG PO (08:15)
[2024-04-30] MEDS: ABILIFY 2 MG PO ×2 (08:15→20:47)
[2024-04-30] MEDS: LOPRESSOR 25 MG PO ×2 (08:15→20:48)
[2024-04-30] MEDS: VITAMIN C 1000 MG PO (08:15)
[2024-04-30] MEDS: LASIX 80 MG PO (08:15)
[2024-04-30] MEDS: PROCARDIA XL (EXTENDED RELEASE) 30 MG PO (08:15)
[2024-04-30] MEDS: DESENEX/MITRAZOL/ZEASORB 1 APPLIC TOPICAL ×2 (08:21→20:55)
[2024-04-30 09:18] LABS: Hematocrit 40.9 % (37.0-47.0); Hemoglobin 13.9 g/dL (12.0-16.0); Mean Corpuscular Hgb 31.1 pg (27.0-31.0); Mean Corpuscular Volume 91.5 fL (81.0-99.0); Mean Platelet Volume 9.4 fL (7.4-10.4); Platelet Count 153 10^3/uL (130-400); Red Blood Cell Count 4.47 10^6/uL (4.20-5.40); Red Cell Dist. Width 13.4 % (11.5-14.5); White Blood Cell Count 4.4 10^3/uL (4.8-10.8)
[2024-04-30 09:44] LABS: ALT (SGPT) 31 U/L (0-35); AST (SGOT) 37 U/L (14-36); Albumin 4.4 g/dl (3.5-5.0); Alkaline Phosphatase 65 U/L (38-126); Blood Urea Nitrogen 11 mg/dl (7-17); Calcium 9.2 mg/dl (8.4-10.2); Carbon Dioxide 28 mmol/L (22-30); Chloride 96 mmol/L (98-107); Estimated Creatinine Clearance 45 ml/min; Glucose 146 mg/dl (70-99); Potassium 3.9 mmol/L (3.5-5.1); Sodium 135 mmol/L (135-145); Total Bilirubin 1.2 mg/dl (0.2-1.3); Total Protein 7.1 g/dl (6.3-8.2); eGFR > 60.00
--- NOTE | 2024-04-30 13:17 | CM ---
Plan is for skilled placement, patient resides at [facility] on 8th floor, patient wants to go to [facility], adult protective caseworker reached out to Briana at [facility] and she will check on beds for tomorrow, referral
sent to [facility] as a back up plan.
Plan; Skilled placement at [facility] if there is a bed available, referral sent to [facility] as a back up plan.
[2024-04-30] MEDS: FLOMAX 0.4 MG PO (13:36)
--- NOTE | 2024-04-30 15:17 | W.PN.HOSP.TC ---
Today's Communication/Plan
-
d/c planning for snf rehab
Assessment / Plan
Assessment / Plan
Ms. Susannah Fierro is a 89 yo woman with hx HFpEF, fibromyalgia, essential HTN, HLD, anxiety/depression who presents to the ER with shortness of breath. She was seen in the ER on 04/21/24 for diarrhea. She had a witnessed episode of syncope in the
ER.
#Influenza A Viral PNA
Hypoxic Respiratory Insufficiency - Resolved
Syncope - presumed vasovagal
-suspect Vasovagal syncope given association with GI upset
-continue Tamiflu, timing of onset unclear
-O2 support as needed-weaned to RA
-PT/OT- Skilled rehab
#Leukopenia
-2/2 to acute infection
-monitor
#ESBL E coli UTI
-ua positive with symptoms
-on merrem day 2
-f/u cultures
#HFpEF
-continue ROLLER MAKER Lasix/Spironolactone
-consider administering IV lasix based on exam, labs tomorrow
#Urinary retention
-required straight cath x2
-flomax added
#Anxiety/Depression
-ROLLER MAKER Fluoxetine, Abilify
#HLD
-ROLLER MAKER statin
#Essential hypertension
-patient hypertensive in ER
-continue ROLLER MAKER regimen: Nifedipine, Metoprolol
-ROLLER MAKER spironolactone as above
DVT PPx Lovenox subQ
DNR - confirmed on admission
Anticipated Discharge: Within 24 hours
Subjective/Interval History
-
Date of Service: April 30, 2024
Resting comfortably in bed
Dry cough
Denies abdominal pain/nausea/vomiting
Objective Data
-
Labs:
Laboratory Results
04/30/24
08:41
WBC 4.4 L
Hgb 13.9
Hct 40.9
Plt Count 153
Sodium 135
Potassium 3.9
Chloride 96 L
Carbon Dioxide 28
BUN 11
Creatinine 0.8
Glucose 146 H
Calcium 9.2
Total Bilirubin 1.2
AST 37 H
ALT 31
Alkaline Phosphatase 65
Vital Signs:
Vital Signs
Temp Pulse Resp BP Pulse Ox
97.9 F 60 20 111/61 93
04/30/24 11:02 04/30/24 11:02 04/30/24 11:02 04/30/24 11:02 04/30/24 11:02
I&O
04/29/24 04/30/24 05/01/24
06:59 06:59 06:59
Intake Total 600 / 600
Output Total 480 / 480 700 / 700
Balance -480 / -480 600 / 600 -700 / -700
Review of Systems
-
Respiratory: Reports No Symptoms
Cardiac: Reports No Symptoms
Abdomen/GI: Reports No Symptoms
Physical Exam
-
General: Negative Respiratory Distress
Respiratory: Clear to Auscultation
Cardiac: Regular Rhythm and S1/S2; Negative Murmur or Rub
GI: Soft, Nontender and Nondistended
Musculoskeletal: No Edema
Neuro: Awake, Alert, Oriented, No Motor Deficits and Nonfocal/Grossly Intact
Psych: Calm
[2024-04-30] MEDS: LOVENOX 40 MG SC (16:26)
[2024-04-30] MEDS: CRESTOR 5 MG PO (16:26)
--- NOTE | 2024-04-30 17:42 | PTCARENOTE ---
pt transferred from 4W AOx3 [facility] [place]. NSR crackles in b/l bases on RA occ nuclear equipment sales engineer cough. abd round obese NT +BSx4. MASD b/l groin folds, skin otherwise intact. _PP B/L trace b/l le edema.
[2024-05-01 03:30] VITALS: BP 124/64
[2024-05-01 06:00] VITALS: BMI 35.2
[2024-05-01 07:13] LABS: ALT (SGPT) 31 U/L (0-35); AST (SGOT) 33 U/L (14-36); Albumin 4.3 g/dl (3.5-5.0); Alkaline Phosphatase 55 U/L (38-126); Blood Urea Nitrogen 13 mg/dl (7-17); Carbon Dioxide 29 mmol/L (22-30); Chloride 94 mmol/L (98-107); Estimated Creatinine Clearance 45 ml/min; Glucose 112 mg/dl (70-99); Potassium 3.8 mmol/L (3.5-5.1); Sodium 135 mmol/L (135-145); Total Bilirubin 1.3 mg/dl (0.2-1.3); Total Protein 6.9 g/dl (6.3-8.2); eGFR > 60.00
[2024-05-01 07:44] VITALS: BP 128/62
[2024-05-01] MEDS: NEURONTIN 300 MG PO (07:58)
[2024-05-01] MEDS: ABILIFY 2 MG PO (07:58)
[2024-05-01] MEDS: PROZAC 40 MG PO (07:58)
[2024-05-01] MEDS: FARXIGA 5 MG PO (07:58)
[2024-05-01] MEDS: LASIX 80 MG PO (07:58)
[2024-05-01] MEDS: ALDACTONE 25 MG PO (07:58)
[2024-05-01] MEDS: STERILE WATER FOR INJECTION 10 ML IV (07:59)
[2024-05-01] MEDS: VITAMIN C 1000 MG PO (07:59)
[2024-05-01] MEDS: KCL 10 MEQ PO (07:59)
[2024-05-01] MEDS: MERREM 500 MG IV (07:59)
[2024-05-01] MEDS: FLOMAX 0.4 MG PO (07:59)
[2024-05-01] MEDS: LOPRESSOR 25 MG PO (07:59)
[2024-05-01] MEDS: TAMIFLU 30 MG PO (07:59)
[2024-05-01] MEDS: PROCARDIA XL (EXTENDED RELEASE) 30 MG PO (08:00)
[2024-05-01] MEDS: DESENEX/MITRAZOL/ZEASORB 1 APPLIC TOPICAL (08:03)
[2024-05-01 08:15] LABS: Hematocrit 39.9 % (37.0-47.0); Hemoglobin 13.9 g/dL (12.0-16.0); Mean Corp Hgb Conc. 34.8 g/dL (33.0-37.0); Mean Corpuscular Hgb 31.4 pg (27.0-31.0); Mean Corpuscular Volume 90.1 fL (81.0-99.0); Mean Platelet Volume 9.3 fL (7.4-10.4); Platelet Count 159 10^3/uL (130-400); Red Blood Cell Count 4.43 10^6/uL (4.20-5.40); Red Cell Dist. Width 13.2 % (11.5-14.5)
[2024-05-01] MEDS: TYLENOL 650 MG PO (08:57)
[2024-05-01 09:10] VITALS: BP 116/45; PULSE 64; O2SAT 98
[2024-05-01 09:25] VITALS: BP 119/65; PULSE 66; O2SAT 98
--- NOTE | 2024-05-01 09:52 | W.PN.HOSP.TC ---
Today's Communication/Plan
-
d/c snf
Assessment / Plan
Assessment / Plan
Ms. Susannah Fierro is a 89 yo woman with hx HFpEF, fibromyalgia, essential HTN, HLD, anxiety/depression who presents to the ER with shortness of breath. She was seen in the ER on 04/21/24 for diarrhea. She had a witnessed episode of syncope in the
ER.
#Influenza A Viral PNA
Hypoxic Respiratory Insufficiency - Resolved
Syncope - presumed vasovagal
-suspect Vasovagal syncope given association with GI upset
-continue Tamiflu, timing of onset unclear
-O2 support as needed-weaned to RA
-PT/OT- Skilled rehab
#Leukopenia
-2/2 to acute infection
-monitor
#Klebsiella UTI
h/o ESBL ecoli UTI
-ua positive with symptoms
-on merrem day 2
-f/u cultures
#HFpEF
-continue INSURANCE OFFICE MANAGER Lasix/Spironolactone
-consider administering IV lasix based on exam, labs tomorrow
#Urinary retention
-required straight cath x2
-flomax added
#Anxiety/Depression
-INSURANCE OFFICE MANAGER Fluoxetine, Abilify
#HLD
-INSURANCE OFFICE MANAGER statin
#Essential hypertension
-patient hypertensive in ER
-continue INSURANCE OFFICE MANAGER regimen: Nifedipine, Metoprolol
-INSURANCE OFFICE MANAGER spironolactone as above
DVT PPx Lovenox subQ
DNR - confirmed on admission
More than 30 minutes spent in discharge including
Final examination of the patient
Summarizing hospital stay
Instructions for continuing care to all relevant caregivers
Preparation of discharge records, prescriptions, and referral forms
Total time spent (in minutes): 38 mins
Anticipated Discharge: Today
Subjective/Interval History
-
Date of Service: May 01, 2024
no complains overnight
having some pain in left thigh
concerned about leg weakness
Objective Data
-
Labs:
Laboratory Results
05/01/24 05/01/24
06:09 07:52
WBC Cancelled 4.0 L
Hgb Cancelled 13.9
Hct Cancelled 39.9
Plt Count Cancelled 159
Sodium 135
Potassium 3.8
Chloride 94 L
Carbon Dioxide 29
BUN 13
Creatinine 0.8
Glucose 112 H
Calcium 9.0
Total Bilirubin 1.3
AST 33
ALT 31
Alkaline Phosphatase 55
Vital Signs:
Vital Signs
Temp Pulse Resp BP Pulse Ox
97.8 F 60 16 128/62 94
05/01/24 07:44 05/01/24 07:44 05/01/24 07:44 05/01/24 07:44 05/01/24 07:44
I&O
04/30/24 05/01/24 05/02/24
06:59 06:59 06:59
Intake Total 600 / 600 360 / 360
Output Total 700 / 700
Balance 600 / 600 -340 / -340
Review of Systems
-
Respiratory: Reports No Symptoms
Cardiac: Reports No Symptoms
Abdomen/GI: Reports No Symptoms
Physical Exam
-
General: Morbidly Obese; Negative Respiratory Distress
Respiratory: Clear to Auscultation
Cardiac: Regular Rhythm and S1/S2; Negative Murmur or Rub
GI: Soft, Nontender and Nondistended
Musculoskeletal: No Edema
Neuro: Awake, Alert, Oriented, No Motor Deficits and Nonfocal/Grossly Intact
Psych: Calm
--- NOTE | 2024-05-01 10:16 | CM ---
Addendum entered by Barb Dee 05/01/24 13:38:
[employer] auth #[id number]
7 days approved 05/01-05/07
Original Note:
CM reviewed pt with Dr Orellana- ready for dc
No bed available at [facility], bed offered at [facility]
Pt in agreement
[employer] auth obtained for SNF
Update to dtr who is requesting transport be set up
Pt does not qualify for SNF- dtr in agreement with fees for WC van
IMM verbally completed with pt- copy provided
Dtr provided number for payment
Discharge Disposition- [facility] via WC van
Phone- [phone] Fax- not working, CM sent via [facility]
[2024-05-01 11:30] VITALS: BP 100/47
[2024-05-01 14:49] VITALS: BP 136/68
--- NOTE | 2024-05-01 16:00 | W.DCSUMMARY ---
Discharge Summary
Discharge Data
Date of Admission: 04/26/24
Date of Discharge: 05/01/24
-
Pending Results: No
Hospital Course
Discharging Physician : Dr Jeremy Orellana
Disposition : SNF rehab
Primary care physician : Unknown
Principal Discharge diagnosis :
Influenza A viral pneumonia
Acute hypoxic respiratory insufficiency
Vasovagal syncope
Klebsiella urinary tract infection
Urinary retention
Chronic Discharge diagnosis :
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
Chronic diastolic congestive heart failure
Anxiety/depression
Obesity
Essential hypertension
Hospital Course :
Patient is a 89-year-old female with no mentioned past medical history came to ER with new onset of shortness of breath. Patient was also having some diarrhea associated with this. Patient had a witnessed syncope in the ER which later was felt to
be vasovagal in nature. Patient was checked for flu and tested positive for influenza A. Patient was requiring oxygen support and was admitted to hospital for management of all above-mentioned symptoms. Patient was started on Tamiflu therapy.
Patient was able to be weaned off of oxygen later during the hospital course. No further episodes of syncope happened.
Patient was complaining some dysuria after hospitalization and urine was showing pyuria/bacteriuria. Patient does have history of ESBL E. coli UTI in the past and was initially maintained on Merrem empirically. Urine culture later identified
Klebsiella pneumonia which was drug sensitive, patient was discharged on short course of Omnicef based on susceptibility readings.
Patient also had urinary retention issue and likely contributed by patient decreased activity level. Patient required straight catheterization during the hospital stay. Flomax added to regimen can be discontinued once patient out of rehab.
Patient discharged to long term facility rehab post medical stabilization
Important imaging findings :
None
Procedure findings :
None
Discharge Plan
-
Patient Disposition: Senior Living/SNF
Discharge Diagnosis/Procedures: Influenza A viral pneumonia, Klebsiella UTI, Urinary retention
Condition: Fair
Diet: 2 Gram Sodium
Activity: As tolerated
Driving Restrictions: No driving
Bathing Restrictions: OK to Shower
Referrals:
Dalton Elena MD, Resident [Family Practice Resident Year1] - in three to four weeks
UNKNOWN - PT NOT,INTERVIEWE [Family Provider] -
Prescriptions:
New
tamsulosin 0.4 mg Capsule
0.4 mg PO DAILY Qty: 30 0RF
cefdinir 300 mg capsule
300 mg PO BID Qty: 6 0RF
Rx Instructions:
Last dose 05/03 Evening
Continued
rosuvastatin 5 MG tablet
5 mg PO QPM
metoprolol tartrate 25 MG tablet
25 mg PO BID
fluoxetine 40 mg capsule
40 mg PO DAILY
calcium carbonate 500 mg calcium (1,250 mg) Tablet
600 mg PO DAILY
ascorbic acid (vitamin C) [Vitamin C] 500 mg Tablet
1,000 mg PO DAILY
nifedipine 30 mg Tablet Extended Release
30 mg PO DAILY Qty: 30 0RF
cholecalciferol (vitamin D3) [Vitamin D3] 25 mcg (1,000 unit) Tablet
50 mcg PO DAILY
spironolactone 25 mg Tablet
25 mg PO DAILY
dapagliflozin propanediol [Farxiga] 5 mg Tablet
5 mg PO DAILY
potassium chloride 10 mEq Tablet Extended Release
10 meq PO DAILY
diphenhydramine-acetaminophen [Tylenol PM Extra Strength] 25-500 mg Tablet
1 tab PO HSPRN PRN (Reason: sleep)
aripiprazole 2 mg Tablet
2 mg PO BID
furosemide [Lasix] 40 mg tablet
80 mg PO DAILY
gabapentin 300 mg Capsule
300 mg PO TID
Discharge Orders:
Discharge Patient (As Directed); Ordered 05/01/24
Ordered By: Jeremy Orellana
Discharge Date and Time
Discharge Date/Time: 05/01/24 15:23
Print Language: BELGIAN
== END 2024-05-01 15:23 | DRG 194 ==
LOC: 3 WEST ACU 15:34
PROVIDERS: Internal Medicine; Physician Assistant; ADMITTING PHYSICIAN Student in an Organized Health Care Education/Training Program; ATTENDING PHYSICIAN Hospitalist; EMERGENCY PHYSICIAN Emergency Medicine
DX: J10.01 Influenza due to other identified influenza virus with the same other identified influenza virus pneumonia (principal); I50.32 Chronic diastolic (congestive) heart failure; N39.0 Urinary tract infection, site not specified; R09.02 Hypoxemia; Z66 Do not resuscitate; R55 Syncope and collapse; B96.1 Klebsiella pneumoniae [K. pneumoniae] as the cause of diseases classified elsewhere; I11.0 Hypertensive heart disease with heart failure; R33.8 Other retention of urine; G47.33 Obstructive sleep apnea (adult) (pediatric); F41.9 Anxiety disorder, unspecified; F32.A Depression, unspecified; E78.00 Pure hypercholesterolemia, unspecified; M79.7 Fibromyalgia; R06.89 Other abnormalities of breathing; E66.9 Obesity, unspecified; Z68.35 Body mass index [BMI] 35.0-35.9, adult; Z79.84 Long term (current) use of oral hypoglycemic drugs; Z79.899 Other long term (current) drug therapy; Z88.0 Allergy status to penicillin; Z88.2 Allergy status to sulfonamides; Z20.822 Contact with and (suspected) exposure to COVID-19
CPT/HCPCS: 71045; 71046; 80048; 80053; 81003; 81015; 82805; 82962; 83735; 83880; 84484; 85025; 85027; 87070; 87077; 87086; 87186; 87502; 87811; 93005; 96360; 97116; 97163; 97166; 99285

== ENCOUNTER → 2024-05-04 10:32 | Outpatient (REF) | payer OTHER, SELFPAY ==
[2024-05-04 11:27] LABS: % Basophils 0.2 % (0-2); % Eosinophils 4.6 % (0-6); % Immature Granulocytes 0.4 % (0-0.5); % Lymphocytes 35.4 % (20.5-51.1); % Monocytes 12.8 % (1.7-9.3); % Neutrophils 46.6 % (42.2-75.2); Absolute Eosinophils 0.2 10^3/uL (0-0.7); Absolute Lymphocytes 1.6 10^3/uL (1.2-3.4); Absolute Monocytes 0.6 10^3/uL (0.1-0.6); Absolute Neutrophils 2.2 10^3/uL (1.4-6.5); Hematocrit 35.3 % (37.0-47.0); Hemoglobin 11.8 g/dL (12.0-16.0); Mean Corp Hgb Conc. 33.4 g/dL (33.0-37.0); Mean Corpuscular Hgb 31.1 pg (27.0-31.0); Mean Corpuscular Volume 92.9 fL (81.0-99.0); Mean Platelet Volume 9.4 fL (7.4-10.4); Nucleated Red Blood Cells % 0 %; Platelet Count 211 10^3/uL (130-400); Red Cell Dist. Width 13.6 % (11.5-14.5); White Blood Cell Count 4.6 10^3/uL (4.8-10.8)
[2024-05-04 11:39] LABS: Blood Urea Nitrogen 15 mg/dl (7-17); Calcium 8.9 mg/dl (8.4-10.2); Carbon Dioxide 31 mmol/L (22-30); Chloride 97 mmol/L (98-107); Glucose 104 mg/dl (70-99); Sodium 135 mmol/L (135-145); eGFR > 60.00
== END ==
LOC: OLABP 10:32
PROVIDERS: ATTENDING PHYSICIAN Family Medicine
DX: J10.1 Influenza due to other identified influenza virus with other respiratory manifestations (principal); J18.9 Pneumonia, unspecified organism; N39.0 Urinary tract infection, site not specified; R06.89 Other abnormalities of breathing; I50.30 Unspecified diastolic (congestive) heart failure; F41.9 Anxiety disorder, unspecified; F32.0 Major depressive disorder, single episode, mild; B96.1 Klebsiella pneumoniae [K. pneumoniae] as the cause of diseases classified elsewhere; R33.9 Retention of urine, unspecified; M79.7 Fibromyalgia; I10 Essential (primary) hypertension; M54.9 Dorsalgia, unspecified; E78.5 Hyperlipidemia, unspecified; D72.819 Decreased white blood cell count, unspecified; G47.33 Obstructive sleep apnea (adult) (pediatric); R55 Syncope and collapse
CPT/HCPCS: 36415; 80048; 85025